=== PATIENT | female | born 1960 | race Caucasian/White ===

== ENCOUNTER 2017-09-23 10:11 | Emergency (ER) | payer MEDICARE, OTHER ==
[2017-09-23] MEDS ORDERED: SODIUM CHLORIDE 0.9% 500 ML IV STA (10:35)
[2017-09-23] MEDS ORDERED: ONDANSETRON 4 MG/2 ML VIAL IVP STA (10:35)
[2017-09-23] MEDS ORDERED: SODIUM CHLORIDE 0.9% 1,000 ML IV STA (10:35)
[2017-09-23] MEDS ORDERED: DICYCLOMINE 10 MG/ML 2 ML AMP IM STA (10:36)
[2017-09-23 11:45] LABS: Basophils # (A) 0.1 k/uL (0-0.2); Basophils % (A) 1 %; Eosinophils # (A) 0.3 k/uL (0-0.7); Eosinophils % (A) 3 %; HCT 40.3 % (34.0-46.0); HGB 13.1 gm/dL (11.4-16.0); Lymphocytes # (A) 2.8 k/uL (1.0-4.8); Lymphocytes % (A) 35 %; MCH 27.6 pg (25.0-35.0); MCHC 32.4 g/dL (31.0-37.0); Mean Platelet Volume 7.9; Monocytes # (A) 0.5 k/uL (0-1.0); Monocytes % (A) 6 %; Neutrophils # (A) 4.3 k/uL (1.3-7.7); Neutrophils % (A) 53 %; Platelet Count 334 k/uL (150-450); RBC 4.75 m/uL (3.80-5.40); RDW 12.5 % (11.5-15.5); WBC 8.1 k/uL (3.8-10.6)
--- NOTE | 2017-09-23 11:56 | ED ---
General Adult HPI - General Chief complaint: Nausea/Vomiting/Diarrhea Stated complaint: hyperglycemia Time Seen by Provider: 09/23/17 10:30 Source: patient, RN notes reviewed, old records reviewed Mode of arrival: ambulatory Limitations: no limitations - History of Present Illness Initial comments: This is a 57-year-old female the ER for evaluation. Patient resents today for evaluation of persistent nausea vomiting. Abdominal pain occasionally. Patient has history of diabetes, she is type II diabetic on oral medication. To examine persistent for a couple weeks now sugars have been running high in the 500s. Patient states she does not feel well she feels weak, no diarrhea no fevers. No travel history or sick contacts - Related Data Home Medications Medication Instructions Recorded Confirmed Aspirin [Adult Low Dose Aspirin EC] 81 mg PO DAILY 08/26/15 09/23/17 Hydrocodone/Acetaminophen 1 tab PO QID PRN 08/26/15 09/23/17 [Hydrocodone-Acetamin 10-325 mg] Lisinopril [Prinivil] 10 mg PO QAM 08/26/15 09/23/17 glipiZIDE [Glucotrol] 10 mg PO BID 08/26/15 09/23/17 metFORMIN HCL 1,000 mg PO BID 08/26/15 09/23/17 Atorvastatin Calcium [Lipitor] 20 mg PO HS 09/23/17 09/23/17 Levothyroxine Sodium [Synthroid] 175 mcg PO DAILY 09/23/17 09/23/17 Previous Rx's Medication Instructions Recorded Clopidogrel [Plavix] 75 mg PO DAILY #90 tab 08/31/15 Dicyclomine [Bentyl] 20 mg PO QID #40 tablet 09/23/17 Ondansetron Odt [Zofran ODT] 4 mg PO Q8HR PRN #30 tab 09/23/17 Allergies Allergy/AdvReac Type Severity Reaction Status Date / Time latex Allergy Rash/Hives Verified 09/23/17 11:06 Review of Systems ROS Statement: Those systems with pertinent positive or pertinent negative responses have been documented in the HPI. ROS Other: All systems not noted in ROS Statement are negative. Past Medical History Past Medical History: Asthma, COPD, Diabetes Mellitus, Fibromyalgia, GERD/Reflux , Hyperlipidemia, Thyroid Disorder Additional Past Medical History / Comment(s): Restless leg syndrome History of Any Multi-Drug Resistant Organisms: None Reported Past Surgical History: Heart Catheterization With Stent, Tubal Ligation Additional Past Surgical History / Comment(s): THYROIDECTOMY, CTR-RT WRIST, Cataract surgery R eye. Past Anesthesia/Blood Transfusion Reactions: Postoperative Nausea & Vomiting ( PONV) Date of Last Stent Placement:: 08/26/15 Past Psychological History: Anxiety Smoking Status: Former smoker Past Alcohol Use History: Rare Past Drug Use History: Marijuana - Past Family History Son(s) Family Medical History: Diabetes Mellitus, Renal Disease Additional Family Medical History / Comment(s): BLINDNESS FROM DIABETES. Mother Family Medical History: Diabetes Mellitus Father Family Medical History: Diabetes Mellitus, Deep Vein Thrombosis (DVT) General Exam Limitations: no limitations General appearance: alert, in no apparent distress Head exam: Present: atraumatic, normocephalic, normal inspection Eye exam: Present: normal appearance, PERRL, EOMI. Absent: scleral icterus, conjunctival injection, periorbital swelling ENT exam: Present: normal exam, mucous membranes moist Neck exam: Present: normal inspection. Absent: tenderness, meningismus, lymphadenopathy Respiratory exam: Present: normal lung sounds bilaterally. Absent: respiratory distress, wheezes, rales, rhonchi, stridor Cardiovascular Exam: Present: regular rate, normal rhythm, normal heart sounds. Absent: systolic murmur, diastolic murmur, rubs, gallop, clicks GI/Abdominal exam: Present: soft, normal bowel sounds. Absent: distended, tenderness, guarding, rebound, rigid Extremities exam: Present: normal inspection, full ROM, normal capillary refill. Absent: tenderness, pedal edema, joint swelling, calf tenderness Back exam: Present: normal inspection Neurological exam: Present: alert, oriented X3, CN II-XII intact Psychiatric exam: Present: normal affect, normal mood Skin exam: Present: warm, dry, intact, normal color. Absent: rash Course Vital Signs 09/23/17 09/23/17 10:13 12:38 Temperature 97.4 F L Pulse Rate 97 80 Respiratory 18 18 Rate Blood Pressure 198/82 145/69 O2 Sat by Pulse 96 97 Oximetry - Reevaluation(s) Reevaluation #1: 09/23/17 11:56 Mild improvement in symptoms, no active nausea or vomiting Reevaluation #2: 09/23/17 12:58 I need to follow up for tighter insulin treatment with family Medical Decision Making - Medical Decision Making 57 female the ER for evaluation. Patient does say for evaluation regards to abdominal pain consistent nausea vomiting elevated blood sugars. Patient's uncontrolled diabetes. CT labwork is normal, blood sugar is improved. The patient given hydration here we'll discharge with nausea medication and Bentyl - Lab Data Result diagrams: 09/23/17 11:23 09/23/17 11:23 Lab Results 09/23/17 09/23/17 09/23/17 Range/Units 11:23 11:23 11:23 WBC 8.1 (3.8-10.6) k/uL RBC 4.75 (3.80-5.40) m/uL Hgb 13.1 (11.4-16.0) gm/dL Hct 40.3 (34.0-46.0) % MCV 85.0 (80.0-100.0) fL MCH 27.6 (25.0-35.0) pg MCHC 32.4 (31.0-37.0) g/dL RDW 12.5 (11.5-15.5) % Plt Count 334 (150-450) k/uL Neutrophils % 53 % Lymphocytes % 35 % Monocytes % 6 % Eosinophils % 3 % Basophils % 1 % Neutrophils # 4.3 (1.3-7.7) k/uL Lymphocytes # 2.8 (1.0-4.8) k/uL Monocytes # 0.5 (0-1.0) k/uL Eosinophils # 0.3 (0-0.7) k/uL Basophils # 0.1 (0-0.2) k/uL Sodium 138 (137-145) mmol/L Potassium 4.9 (3.5-5.1) mmol/L Chloride 101 (98-107) mmol/L Carbon Dioxide 26 (22-30) mmol/L Anion Gap 11 mmol/L BUN 23 H (7-17) mg/dL Creatinine 0.50 L (0.52-1.04) mg/dL Est GFR (CKD-EPI)AfAm >90 (>60 ml/min/1.73 sqM) Est GFR (CKD-EPI)NonAf >90 (>60 ml/min/1.73 sqM) Glucose 373 H (74-99) mg/dL Calcium 10.0 (8.4-10.2) mg/dL Phosphorus 4.4 (2.5-4.5) mg/dL Magnesium 1.7 (1.6-2.3) mg/dL Total Bilirubin 0.2 (0.2-1.3) mg/dL AST 15 (14-36) U/L ALT 26 (9-52) U/L Alkaline Phosphatase 117 (38-126) U/L Total Creatine Kinase 36 (30-135) U/L CK-MB (CK-2) 0.6 (0.0-2.4) ng/mL CK-MB (CK-2) Rel Index 1.7 Troponin I <0.012 (0.000-0.034) ng/mL Total Protein 6.8 (6.3-8.2) g/dL Albumin 3.8 (3.5-5.0) g/dL Acetone, Qual Negative (Negative) - Radiology Data Radiology results: report reviewed (CT of pelvis negative for acute disease), image reviewed Disposition Clinical Impression: Gastroenteritis, Nausea & vomiting, Hyperglycemia Disposition: HOME SELF-CARE Condition: Fair Instructions: Acute Nausea and Vomiting (ED) Prescriptions: Dicyclomine [Bentyl] 20 mg PO QID #40 tablet Ondansetron Odt [Zofran ODT] 4 mg PO Q8HR PRN #30 tab PRN Reason: nausea/vomiting Is patient prescribed a controlled substance at d/c from ED?: No Referrals: Lilli Cabrales MD [Primary Care Provider] - 1-2 days
--- NOTE | 2017-09-23 12:01 | XR ---
EXAMINATION TYPE: XR abdomen acute w cxr DATE OF EXAM: 09/23/2017 COMPARISON: NONE HISTORY: Nausea and vomiting with history of COPD. TECHNIQUE: Single view chest radiograph, upright abdominal radiograph, and supine abdominal radiogra phs were performed. FINDINGS: Chest: No focal consolidation, pleural effusion or pneumothorax is seen. Cardiomediastinal silhouette is within normal limits. Osseous structures are intact. ABDOMEN: The bowel is nondilated. No suspicious abnormal calcifications are seen within the abdomen o r pelvis. Minimal degenerative changes are noted of the lumbosacral junction. Sclerotic elongated reg ion of the right superior pubic ramus with expansion is noted. Atherosclerosis is seen of the femoral arteries, mild in degree. IMPRESSION: 1. No acute intra-abdominal or cardiopulmonary process. Nonobstructed bowel gas pattern. 2. Expansile sclerotic region within the right superior pubic ramus. Consideration is for Paget's dis ease, prior bone infarct, or less likely neoplasm. Nuclear medicine bone scan could be performed to e valuate for focal uptake. MRI could also be considered for further characterization.
[2017-09-23 12:02] LABS: ALT 26 U/L (9-52); AST 15 U/L (14-36); Albumin 3.8 g/dL (3.5-5.0); Alkaline Phosphatase 117 U/L (38-126); Anion Gap 11 mmol/L; Blood Urea Nitrogen 23 mg/dL (7-17); Carbon Dioxide 26 mmol/L (22-30); Chloride 101 mmol/L (98-107); Glucose 373 mg/dL (74-99); Magnesium 1.7 mg/dL (1.6-2.3); Phosphorus 4.4 mg/dL (2.5-4.5); Potassium 4.9 mmol/L (3.5-5.1); Sodium 138 mmol/L (137-145); Total Bilirubin 0.2 mg/dL (0.2-1.3); Total Protein 6.8 g/dL (6.3-8.2)
[2017-09-23 12:07] LABS: Creatine Kinase 36 U/L (30-135)
[2017-09-23 12:19] LABS: Creatine Kinase MB 0.6 ng/mL (0.0-2.4); Troponin I <0.012 ng/mL (0.000-0.034)
[2017-09-23] MEDS ORDERED: INSULIN REGULAR 100 UNIT/ML VIAL IV ONE (12:56)
[2017-09-23 13:02] LABS: Appearance,Urine Clear (Clear); Bilirubin,Urine Negative (Negative); Blood,Urine Negative (Negative); Color,Urine Light Yellow; Glucose,Urine (UA) 4+ (Negative); Ketones,Urine Negative (Negative); Leukocyte Esterase,Urine Negative (Negative); Nitrite,Urine Negative (Negative); Protein,Urine Negative (Negative); Specific Gravity,Urine 1.025 (1.001-1.035); Urobilinogen,Urine <2.0 mg/dL (<2.0)
[2017-09-23 15:50] VITALS: BP 163/69; PULSE 81; RESP 20; TEMP 98
[2017-09-23 22:29] LABS: Hemoglobin A1C 12.8 % (4.0-6.0)
== END 2017-09-23 13:45 | disposition home or self-care (01) ==
LOC: EC 10:11
DX: K52.9 Noninfective gastroenteritis and colitis, unspecified (principal); K21.9 Gastro-esophageal reflux disease without esophagitis; E78.5 Hyperlipidemia, unspecified; E11.65 Type 2 diabetes mellitus with hyperglycemia; E07.9 Disorder of thyroid, unspecified; Z53.29 Procedure and treatment not carried out because of patient's decision for other reasons; Z87.891 Personal history of nicotine dependence; Z79.82 Long term (current) use of aspirin; Z79.84 Long term (current) use of oral hypoglycemic drugs; Z79.899 Other long term (current) drug therapy; Z91.040 Latex allergy status
CPT/HCPCS: 36415; 80053; 82550; 82553; 82009; 83735; 84100; 84484; 85025; 81003; 87086; 83036; 74022; 99284; 96374; 96361 ×2; 96372; J0500; J2405

== ENCOUNTER → 2018-10-03 | Outpatient (CLI) | payer MEDICARE ==
--- NOTE | 2018-10-03 23:20 | MR ---
EXAMINATION TYPE: MR pelvis wo con DATE OF EXAM: 10/03/2018 COMPARISON: Acute abdominal series with chest x-ray September 23, 2017 HISTORY: RIGHT HIP LESION, recent abnormal x-ray. Standard multiplanar, multisequence MRI departmental protocol Multiplanar, multisequence images of the pelvis focusing on right hip were acquired. FINDINGS: Corresponding to x-ray there is abnormal expansion of the right superior pelvic ramus versu s left side with serpiginous low T1 signal corresponding to irregular sclerotic lesion favoring focal bone infarct. Paget's disease felt less likely but should be correlated clinically and with alpha ph osphatase levels. Inferior pelvic rami are symmetric and maintained. Hip joints show mild to moderate axial joint space loss bilaterally. No additional areas of suspicious edema in the pelvis or either hip are identified. There is a anteverted uterus projecting to the right of midline with a few small scattered fibroids. There is no suspicious bowel dilatation. Bladder is felt within normal limits. No concerning pelvic f luid collection is noted. 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
== END | disposition home or self-care (01) ==
LOC: RADMRIMAIN 16:43
PROVIDERS: ATTEND Family Medicine
DX: M25.851 Other specified joint disorders, right hip (principal)
CPT/HCPCS: 72195

== ENCOUNTER → 2018-10-10 | Outpatient (CLI) | payer MEDICARE ==
--- NOTE | 2018-10-15 13:53 | P.ARTDOP ---
Arterial Doppler LOWER EXTREMITY ARTERIAL DOPPLER: DATE OF SERVICE: 10/10/2018 Reason for study: Claudication. Doppler waveforms: Multiphasic bilaterally throughout. Pulse volume recording: Diminished waveforms distally. Pressure gradients: Below the knee bilaterally. Ankle-brachial indices: 0.78 on the right and 0.96 on the left. Toe pressures: 90 on the right, 124 on the left Impression: Normal left side and mild distal disease on the right..
== END ==
LOC: RADUSWWP 14:11
PROVIDERS: ATTEND Family Medicine
DX: I77.89 Other specified disorders of arteries and arterioles (principal); I73.9 Peripheral vascular disease, unspecified
CPT/HCPCS: 93923

== ENCOUNTER → 2020-07-27 | Outpatient (CLI) | payer MEDICARE, OTHER ==
[2020-07-27 14:45] LABS: HCT 37.2 % (34.0-46.0); HGB 11.1 gm/dL (11.4-16.0); Hypochromasia Marked; MCH 24.4 pg (25.0-35.0); MCHC 29.8 g/dL (31.0-37.0); MCV 81.6 fL (80.0-100.0); Mean Platelet Volume 8.3; Platelet Count 326 k/uL (150-450); RBC 4.56 m/uL (3.80-5.40); RDW 14.4 % (11.5-15.5); WBC 10.2 k/uL (3.8-10.6)
[2020-07-27 14:57] LABS: African American GFR (CKD) >90 (>60 ml/min/1.73 sqM); Anion Gap 7 mmol/L; Blood Urea Nitrogen 34 mg/dL (7-17); Carbon Dioxide 31 mmol/L (22-30); Chloride 100 mmol/L (98-107); Non-African American GFR(CKD) >90 (>60 ml/min/1.73 sqM); Sodium 138 mmol/L (137-145)
[2020-07-27 15:11] LABS: Potassium 4.9 mmol/L (3.5-5.1)
== END | disposition home or self-care (01) ==
LOC: LABPAT 12:58
PROVIDERS: ATTEND Internal Medicine Cardiovascular Disease
DX: Z01.812 Encounter for preprocedural laboratory examination (principal); I48.0 Paroxysmal atrial fibrillation
CPT/HCPCS: 36415; 80051; 82565; 84520; 85027

== ENCOUNTER 2020-07-29 08:15 | Observation (INO) | payer MEDICARE, OTHER ==
[2020-07-28 09:58] VITALS: BMI 30.9
[2020-07-29] MEDS: SODIUM CHLORIDE 0.9% 1,000 ML IV SCH ×2 (05:58→12:56)
[~2020-07-29 08:15] MED LIST: ceFAZolin 1 GM in SODIUM CHLORIDE 0.9% 250 ML IRRIGATION PRN
[2020-07-29] MEDS ORDERED: SODIUM CHLORIDE 0.9% 1,000 ML IV ONE (08:48)
[2020-07-29 08:53] LABS: Glucose,Whole Blood 420 mg/dL (75-99)
[2020-07-29] MEDS ORDERED: INSULIN ASPART (NovoLOG) 100 UNIT/ML VIAL SQ ONE (08:58)
[2020-07-29] MEDS ORDERED: ONDANSETRON 4 MG/2 ML VIAL IVP STA (08:58)
[2020-07-29] MEDS ORDERED: amLODIPine 5 MG TAB PO STA (08:58)
[2020-07-29 09:00] LABS: Basophils # (A) 0.1 k/uL (0-0.2); Basophils % (A) 1 %; Eosinophils # (A) 0.4 k/uL (0-0.7); Eosinophils % (A) 4 %; HCT 37.4 % (34.0-46.0); HGB 11.5 gm/dL (11.4-16.0); Hypochromasia Moderate; Lymphocytes # (A) 2.1 k/uL (1.0-4.8); Lymphocytes % (A) 22 %; MCH 25.1 pg (25.0-35.0); MCHC 30.9 g/dL (31.0-37.0); MCV 81.4 fL (80.0-100.0); Mean Platelet Volume 8.7; Monocytes # (A) 0.6 k/uL (0-1.0); Monocytes % (A) 7 %; Neutrophils # (A) 6.1 k/uL (1.3-7.7); Neutrophils % (A) 65 %; Platelet Count 345 k/uL (150-450); RBC 4.59 m/uL (3.80-5.40); RDW 14.7 % (11.5-15.5); WBC 9.5 k/uL (3.8-10.6)
[2020-07-29] MEDS ORDERED: amLODIPine 5 MG TAB ONE (09:00)
[2020-07-29] MEDS ORDERED: ONDANSETRON 4 MG/2 ML VIAL ONE (09:02)
[2020-07-29 09:18] LABS: African American GFR (CKD) >90 (>60 ml/min/1.73 sqM); Anion Gap 6 mmol/L; Blood Urea Nitrogen 27 mg/dL (7-17); Calcium 9.4 mg/dL (8.4-10.2); Carbon Dioxide 32 mmol/L (22-30); Chloride 97 mmol/L (98-107); Glucose 434 mg/dL (74-99); Non-African American GFR(CKD) 87 (>60 ml/min/1.73 sqM); Potassium 4.6 mmol/L (3.5-5.1); Sodium 135 mmol/L (137-145)
[2020-07-29] MEDS ORDERED: IOPAMIDOL-250 50ML BTL IV ONE (09:36)
[2020-07-29] MEDS ORDERED: LIDOCAINE 1% INJ 10MG/ML (20 ML MDV) ONE (09:42)
[2020-07-29] MEDS ORDERED: fentaNYL (PF) 50 MCG/ML 2 ML AMP ONE (09:45)
[2020-07-29] MEDS ORDERED: MIDAZOLAM 2 MG/2 ML VIAL IVP ONE ×2 (09:54→10:13)
[2020-07-29] MEDS ORDERED: fentaNYL (PF) 50 MCG/ML 2 ML AMP IVP ONE ×2 (09:54→10:13)
[2020-07-29] MEDS ORDERED: LIDOCAINE 1% INJ 10MG/ML (20 ML MDV) SQ ONE (10:04)
--- NOTE | 2020-07-29 11:12 | P.PCN ---
Date of Procedure: 07/29/20 Preoperative Diagnosis: sick sinus syndrome with paroxysmal atrial fibrillation and long pauses associated with dizziness Postoperative Diagnosis: The same Procedure(s) Performed: Axillary venography under dual-chamber permanent pacemaker implantation Description of Procedure: HISTORY: This is a 60-year-old female with history of hypertension, diabetes and paroxysmal atrial fibrillation, who was referred for permanent pacemaker implantation because of sick sinus syndrome with long pauses associated with dizziness. CONSENT:I have discussed the risks, benefits and alternative therapies for the above-mentioned procedure and for both sedation/analgesia as well as necessary blood product administration, if indicated, as they pertain to this patient. The patient has indicated understanding and acceptance of the risks and procedures discussed. PROCEDURE: Patient was brought to the lab in a fasting state. Patient was prepped and draped in the usual fashion. Patient was given IV sedation with fentanyl and Versed. The skin below the left clavicle was infiltrated with lidocaine. An incision was made parallel to deltopectoral groove was deepened until the pectoral fascia was exposed. A pocket was created by blunt dissection and cautery. Axillary venography was performed to delineate the course of the axillary vein. 2 sticks were performed into extrathoracic portion of the axillary vein and 2 sheaths were advanced over the guidewires and left in subclavian vein. Conscious Sedation: Versed 1.5mg Fentanyl 75 g Duration 55minutes LEADS: ATRIAL: This is manufactured by [employer]. Model number is 5076-52. Serial number [id number] VENTRICULAR: This is manufactured by [employer]. Model number is 5076-58. [id number] THE DEVICE: This is manufactured by [employer]. Model number is [id number] and the serial number is [id number] The ventricular lead is maneuvered l with help of a straight and curved stylets into the left ventricle apical region. Satisfactory position was obtained and threshold measurements were made. The atrial lead was then maneuvered into the right atrial appendage. And thresholds were obtained. THRESHOLDS: ATRIUM: The minimum pacing threshold was 1.25 V at pulse width of 0.4 with impedance of 589. P-wave: 2.8 VENTRICLE: The minimum pcing threshold is 0.5 at pulse width of 0.4. The impedance is 703 R-wave:. 5.5 The leads and pulse generator remained in the pocket after it was washed with antibiotics. Pocket was closed in the usual fashion. The fascia was closed with 2-0 Prolene ,the subcutaneous tissue was closed with 3-0 Prolene and the skin was closed with 4-0 Prolene. PROGRAMMING: MODE: AAIR with mode switch to DDDR RATE: 60 to 130 OUTPUT: Atrium : 3.5 V Ventricle: 3.5 V. FINAL IMPRESSION: #1. Axillary venography #2. Successful implantation of dual- chamber pacemaker COMPLICATIONS: none PLAN:Patient will be monitored on telemetry unit. Prophylactic antibiotics to be continued. Chest x-ray in the morning. Possible discharge within 24 hours
[2020-07-29 11:46] LABS: Glucose,Whole Blood 313 mg/dL (75-99)
[2020-07-29] MEDS: INSULIN ASPART (NovoLOG) 100 UNIT/ML VIAL SQ SCH ×3 (11:51→20:36)
[2020-07-29] MEDS: ACETAMINOPHEN TAB 325 MG TAB PO PRN (15:50)
[2020-07-29 17:18] LABS: Glucose,Whole Blood 58 mg/dL (75-99)
[2020-07-29 17:26] LABS: Glucose,Whole Blood 60 mg/dL (75-99)
[2020-07-29] MEDS: HYDROcodone/APAP 5-325MG 1 EACH TAB PO PRN ×2 (19:10→23:10)
[2020-07-29 20:20] LABS: Glucose,Whole Blood 201 mg/dL (75-99)
[2020-07-29] MEDS: rOPINIRole HCL 4 MG TABLET PO SCH (23:00)
[2020-07-30] MEDS: SODIUM CHLORIDE 0.9% 1,000 ML IV SCH ×4 (03:55→22:12)
[2020-07-30 04:43] LABS: Glucose,Whole Blood 360 mg/dL (75-99)
[2020-07-30 07:41] LABS: Glucose,Whole Blood 371 mg/dL (75-99)
--- NOTE | 2020-07-30 08:00 | XR ---
EXAMINATION TYPE: XR chest 2V DATE OF EXAM: 07/30/2020 COMPARISON: Chest x-ray 09/23/2017 HISTORY: Lead placement TECHNIQUE: Frontal and lateral views of the chest are obtained. FINDINGS: Interval placement of a generator in the left pectoral region, there are leads in right at rium and ventricle. There is some patchy density in the left lung base. No evident pneumothorax or pl eural effusion. Cardiac mediastinal silhouette is stable. Aorta is dense. IMPRESSION: There may be lower lobe pneumonia, follow-up is recommended, no evident pneumothorax sta tus post chest tube placement
[2020-07-30] MEDS ORDERED: DILTIAZEM DRIP BOLUS FROM BAG 1 MG SOLN IV ONE (09:02)
[2020-07-30] MEDS ORDERED: DILTIAZEM 125 MG in SODIUM CHLORIDE 0.9% 100 ML IV SCH (09:15)
[2020-07-30] MEDS: INSULIN ASPART (NovoLOG) 100 UNIT/ML VIAL SQ SCH ×5 (09:25→21:59)
[2020-07-30] MEDS: ACETAMINOPHEN TAB 325 MG TAB PO PRN (09:36)
[2020-07-30] MEDS: HYDROcodone/APAP 5-325MG 1 EACH TAB PO PRN ×2 (09:43→20:40)
[2020-07-30] MEDS ORDERED: METOPROLOL SUCCINATE (ER) 50 MG TAB.ER.24H PO SCH (11:00)
[2020-07-30] MEDS: lisinopriL 10 MG TAB PO SCH (11:34)
[2020-07-30 12:28] LABS: Glucose,Whole Blood 378 mg/dL (75-99)
[2020-07-30] MEDS ORDERED: METOPROLOL SUCCINATE (ER) 25 MG TAB.ER.24H PO STA (13:03)
--- NOTE | 2020-07-30 15:48 | P.PN ---
<Dara Valerio Naheed - Last Filed: 07/30/20 15:51> Subjective Progress Note Date: 07/30/20 HISTORY OF PRESENT ILLNESS: 60-year-old female who underwent dual-chamber pacemaker implantation secondary to sick sinus syndrome with Dr. Arnold. POD #1. Patient went into A. fib with RVR overnight. She was started on a Cardizem drip. This is currently infusing at 10 mg an hour. Patient reports mild discomfort at pacemaker insertion site. She denies shortness of breath. Patient does report an episode of chest discomfort this morning that was relieved with IV medication. Troponin was obtained and was negative. At the time of examination, she denies any chest pain or pressure. PHYSICAL EXAM: VITAL SIGNS: Reviewed. GENERAL: Well-developed in no acute distress. NECK: Supple. No JVD or thyromegaly LUNGS: Respirations even and unlabored. Lungs essentially clear to auscultation bilaterally. HEART: Irregular rate and rhythm. S1 and S2 heard. Dressing to left chest cl hardik dry and intact. EXTREMITIES: Normal range of motion. No clubbing or cyanosis. Peripheral pulse s intact. No lower extremity edema ASSESSMENT: History of sick sinus syndrome with dizziness, status post dual-chamber pacemaker implantation Atrial fibrillation with RVR, on IV Cardizem History of paroxysmal atrial fibrillation on anticoagulation with Xarelto Hypertension Diabetes mellitus Hypothyroidism PLAN: Resume home cardiac medications Resume Xarelto Resume beta sho. Increase dose to 75 mg daily. Given additional 25 mg now Wean off Cardizem drip Obtain additional troponin level Further recommendations pending patient's course Possible discharge home tomorrow Will consult medicine for medical management Nurse practitioner note has been reviewed by physician. Signing provider agrees with the documented findings, assessment, and plan of care. Objective - Vital Signs Vital signs: Vital Signs Temp 98.2 F 07/30/20 07:10 Pulse 83 07/30/20 10:04 Resp 18 07/30/20 07:10 BP 142/70 07/30/20 10:04 Pulse Ox 95 07/30/20 07:10 Intake & Output 07/29/20 07/30/20 07/30/20 18:59 06:59 18:59 Intake Total 600 1350 Output Total 250 Balance 600 1100 Weight 81.647 kg Intake: IV 300 500 Sodium Chloride 0.9% 1, 500 000 ml @ 50 mls/hr IV . Q20H ANTONIA Rx#:[id number] Oral 300 850 Output: Emesis 250 Other: Voiding Method Toilet Toilet # Voids 1 1 # Bowel Movements 0 - Labs CBC & Chem 7: 07/29/20 08:50 07/29/20 08:50 Labs: Abnormal Lab Results - Last 24 Hours (Table) 07/29/20 07/29/20 07/29/20 Range/Units 17:04 17:24 20:18 POC Glucose (mg/dL) 58 L 60 L 201 H (75-99) mg/dL 07/30/20 07/30/20 07/30/20 Range/Units 04:42 07:37 12:26 POC Glucose (mg/dL) 360 H 371 H 378 H (75-99) mg/dL <Kerwin Vincent - Last Filed: 07/30/20 20:50> Objective - Vital Signs Vital signs: Vital Signs Temp 97.7 F 07/30/20 15:00 Pulse 55 L 07/30/20 15:00 Resp 20 07/30/20 15:00 BP 155/67 07/30/20 15:00 Pulse Ox 95 07/30/20 15:00 Intake & Output 07/30/20 07/30/20 07/31/20 06:59 18:59 06:59 Intake Total 1350 1320 Output Total 250 Balance 1100 1320 Intake: IV 500 Sodium Chloride 0.9% 1, 500 000 ml @ 50 mls/hr IV . Q20H ANTONIA Rx#:[id number] Oral 850 1320 Output: Emesis 250 Other: Voiding Method Toilet Toilet # Voids 1 # Bowel Movements 0 - Labs CBC & Chem 7: 07/29/20 08:50 07/29/20 08:50 Labs: Abnormal Lab Results - Last 24 Hours (Table) 07/30/20 07/30/20 07/30/20 Range/Units 04:42 07:37 12:26 POC Glucose (mg/dL) 360 H 371 H 378 H (75-99) mg/dL 07/30/20 Range/Units 17:40 POC Glucose (mg/dL) 301 H (75-99) mg/dL
[2020-07-30] MEDS: FUROSEMIDE 20 MG TAB PO SCH (16:50)
[2020-07-30] MEDS ORDERED: RIVAROXABAN 20 MG TAB PO SCH (17:30)
[2020-07-30 17:43] LABS: Glucose,Whole Blood 301 mg/dL (75-99)
[2020-07-30] MEDS ORDERED: ALPRAZolam 0.25 MG TAB PO PRN (19:04)
[2020-07-30] MEDS: NITROGLYCERIN SL TABS 0.4 MG TAB SUBLINGUAL PRN ×2 (20:12→20:26)
[2020-07-30] MEDS ORDERED: ATORVASTATIN 40 MG TAB PO SCH (21:00)
[2020-07-30] MEDS ORDERED: INSULIN DETEMIR (LEVEMIR) 100 UNIT/ML SYR SQ SCH (21:00)
[2020-07-30 21:19] LABS: Glucose,Whole Blood 473 mg/dL (75-99)
--- NOTE | 2020-07-30 21:26 | CONS ---
CONSULTATION REASON FOR CONSULTATION: Advice regarding diabetes and other medical illness requested by Cardiology. HISTORY OF PRESENT ILLNESS: This 60-year-old woman with a past medical history of multiple medical problems including asthma, COPD, diabetes, fibromyalgia, GERD, hypertension, hyperlipidemia, being followed by Dr. Lilli Cabrales in the outpatient setting, underwent dual-chamber permanent pacemaker implantation for sick sinus syndrome with paroxysmal atrial fibrillation long pauses as well as dizziness. The blood sugars were found to be elevated in the 300s today. There is no history of fever, rigors or chills. No history of headache, loss of consciousness, chest pain or palpation this time. At home, the patient's blood sugar has been fluctuating according to her. PAST MEDICAL HISTORY: Asthma, COPD, diabetes, fibromyalgia, GERD, hypertension, hyperlipidemia. MEDICATIONS: Home medications are reviewed and include: K-Dur 20 mEq p.o. daily. Protonix. Metoprolol 50 mg p.o. b.i.d., Lasix 20 mg daily, Levemir, NovoLog, Ultram, Requip, Glucotrol, Prinivil, Synthroid, hydrocodone, Livalo, Xarelto. ALLERGIES: LATEX. FAMILY HISTORY: History of diabetes mellitus, renal disease in the family. SOCIAL HISTORY: Previous history of smoking. No history of alcohol intake. REVIEW OF SYSTEMS: ENT: No diminished hearing. No diminished vision. CARDIOVASCULAR system: As mentioned earlier. RESPIRATIONS as mentioned earlier. GI no nausea or vomiting. no dysuria. NERVOUS SYSTEM: No numbness or weakness. ALLERGY/IMMUNOLOGY: No asthma or hayfever. MUSCULOSKELETAL: As mentioned earlier. HEMATOLOGY/ONCOLOGY: No history of anemia. ENDOCRINE: Diabetes. CONSTITUTIONAL: As mentioned earlier. DERMATOLOGY: Negative. RHEUMATOLOGY negative. PSYCHIATRY as mentioned earlier. PHYSICAL EXAM: Patient is alert, oriented x3. Pulse is 55, blood pressure 150/60, respiration 20, temperature 97.7, pulse ox 95 percent on room air. HEENT: Conjunctivae normal. Oral mucosa moist. NECK is no jugular venous distention. No carotid bruit. No lymph node enlargement. Cardiovascular system: S1, S2 muffled. RESPIRATORY: Breath sounds diminished in the bases. No rhonchi. No crackles. ABDOMEN: Soft, nontender. No mass palpable. LEGS: No edema. No swelling. NERVOUS SYSTEM: Higher functions as mentioned earlier. Moves all 4 limbs. No focal motor or sensory deficits. LYMPHATICS: No lymph nodes palpable in the neck, axilla or groin. SKIN: No ulcer, rash or bleeding. JOINTS: No active deforming arthropathy. LABS: Glucose 378, 301. ASSESSMENT: 1. Status post dual chamber pacemaker implantation for sick sinus syndrome, paroxysmal atrial fibrillation, long pauses as well as dizziness. 2. Diabetes mellitus type 2, uncontrolled with hyperglycemia. 3. History of asthma, chronic obstructive pulmonary disease. 4. Fibromyalgia. 5. Gastroesophageal reflux disease. 6. Hyperlipidemia. 7. Hypothyroidism. 8. History of restless legs syndrome. 9. History of coronary artery disease/stent. 10.History of anxiety. 11.Remote history of nicotine dependence. RECOMMENDATIONS AND DISCUSSION: This 60-year-old woman who presented with multiple complex medical issues, we will monitor the patient closely. Continue the current medications, management and symptomatic treatment. Otherwise, at this time, I recommend institute Levemir and also I would also recommend NovoLog plus 3 units plus with meals and plus scale also. Hold if the Accu-Cheks less than 100. Otherwise, we will follow the patient closely. The patient may be asked to follow up with Dr. Lilli Cabrales closely after discharge. Thank you Dr. Arnold for letting us participate in the care of this patient. MMODL / IJN: [id number] /
[2020-07-30] MEDS: rOPINIRole HCL 4 MG TABLET PO SCH (21:57)
[2020-07-30] MEDS: glipiZIDE 10 MG TAB PO SCH (21:59)
[2020-07-30 23:26] LABS: Glucose,Whole Blood 436 mg/dL (75-99)
[2020-07-30] MEDS ORDERED: NON FORMULARY DRUG (Vitamin C/Biotin [Hair, Skin And Nails] 1 EACH Tab.Chew) PO SCH (23:42)
[2020-07-30] MEDS ORDERED: traMADol 50 MG TAB PO PRN (23:42)
[2020-07-30] MEDS ORDERED: INSULIN ASPART (NovoLOG) 100 UNIT/ML VIAL SQ SCH (23:42)
[2020-07-30] MEDS ORDERED: glipiZIDE 10 MG TAB PO SCH (23:42)
[2020-07-30] MEDS ORDERED: lisinopriL 10 MG TAB PO SCH (23:42)
[2020-07-30] MEDS ORDERED: NITROGLYCERIN SL TABS 0.4 MG TAB SUBLINGUAL PRN (23:42)
[2020-07-30] MEDS ORDERED: FUROSEMIDE 20 MG TAB PO SCH (23:42)
[2020-07-30] MEDS ORDERED: ATORVASTATIN 20 MG TAB PO SCH (23:42)
[2020-07-30] MEDS ORDERED: rOPINIRole HCL 4 MG TABLET PO SCH (23:42)
[2020-07-30] MEDS: METOPROLOL SUCCINATE (ER) 50 MG TAB.ER.24H PO SCH (23:53)
[2020-07-30] MEDS: POTASSIUM CHLORIDE ER 20 MEQ TAB.ER PO SCH (23:53)
[2020-07-30] MEDS: PANTOPRAZOLE SODIUM 40 MG GRANULE PKT PO SCH (23:53)
[2020-07-31] MEDS: INSULIN ASPART (NovoLOG) 100 UNIT/ML VIAL SQ SCH ×5 (00:02→12:34)
[2020-07-31] MEDS: ALBUTEROL NEBULIZED 2.5 MG/3 ML INHALATION SCH ×3 (00:25→10:51)
[2020-07-31 05:11] LABS: Glucose,Whole Blood 222 mg/dL (75-99)
[2020-07-31] MEDS: glipiZIDE 10 MG TAB PO SCH (06:26)
[2020-07-31] MEDS ORDERED: LEVOTHYROXINE 75 MCG TAB PO SCH (06:30)
[2020-07-31 07:23] LABS: Glucose,Whole Blood 207 mg/dL (75-99)
[2020-07-31] MEDS ORDERED: INSULIN ASPART (NovoLOG) 100 UNIT/ML VIAL SQ SCH (07:30)
[2020-07-31] MEDS ORDERED: ASPIRIN 81 MG PO SCH (09:00)
[2020-07-31] MEDS ORDERED: METOPROLOL SUCCINATE (ER) 25 MG TAB.ER.24H PO SCH (09:00)
[2020-07-31] MEDS: FUROSEMIDE 20 MG TAB PO SCH (09:26)
[2020-07-31] MEDS: PANTOPRAZOLE SODIUM 40 MG GRANULE PKT PO SCH (09:27)
[2020-07-31] MEDS: POTASSIUM CHLORIDE ER 20 MEQ TAB.ER PO SCH (09:27)
[2020-07-31] MEDS: lisinopriL 10 MG TAB PO SCH (09:27)
[2020-07-31] MEDS: METOPROLOL SUCCINATE (ER) 50 MG TAB.ER.24H PO SCH (09:27)
[2020-07-31] MEDS: HYDROcodone/APAP 5-325MG 1 EACH TAB PO PRN (09:36)
[2020-07-31 12:15] LABS: Glucose,Whole Blood 276 mg/dL (75-99)
[2020-07-31 12:58] VITALS: RESP 16
--- NOTE | 2020-07-31 14:59 | P.DS ---
Providers Date of admission: 07/30/20 12:33 Expected date of discharge: 07/31/20 Attending physician: Harry Arnold Consults: 07/30/20 16:20 Consult Physician Routine Consulting Provider: Mariaelena Haas Consult Reason/Comments: medical management Do you want consulting provider notified?: Yes Primary care physician: Lilli Martinez [facility] Course: This is a 60-year-old female who underwent dual-chamber pacemaker implantation secondary to sick sinus syndrome with Dr. Arnold on 07/29/2020. Patient was admitted overnight for observation. Patient went into A. fib with RVR overnight. She was placed on IV Cardizem. Patient was resumed on her metoprolol and the dose was increased to 75 mg daily. Her Cardizem drip was weaned off. Her heart rate has since been controlled. Patient did have an episode of chest discomfort during hospitalization. Troponins were checked and were negative. No further episodes of chest pain. The patient was deemed stable for discharge home today. She is to follow up on an outpatient basis. Please see EMR for further hospital course details. Discharge Diagnosis: History of sick sinus syndrome with dizziness, status post dual-chamber pacemaker implantation Atrial fibrillation with RVR, rate currently controlled History of paroxysmal atrial fibrillation on anticoagulation with Xarelto Hypertension Diabetes mellitus Hypothyroidism Isolated episode of chest pain, troponins negative, resolved Nurse practitioner note has been reviewed by physician. Signing provider agrees with the documented findings, assessment, and plan of care. Plan - Discharge Summary Discharge Rx Participant: No New Discharge Prescriptions: New Metoprolol Succinate (ER) [Toprol XL] 75 mg PO DAILY #90 tab Cephalexin [Keflex] 500 mg PO Q8HR #9 cap Continue glipiZIDE [Glucotrol] 10 mg PO BID Hydrocodone/Acetaminophen [Hydrocodone-Acetamin 10-325 mg] 1 tab PO Q8H PRN PRN Reason: Pain Lisinopril [Prinivil] 10 mg PO QAM Aspirin [Adult Low Dose Aspirin EC] 81 mg PO DAILY Levothyroxine Sodium [Synthroid] 150 mcg PO DAILY traMADol HCL [Ultram] 50 mg PO Q6H PRN PRN Reason: Pain rOPINIRole HCL [Requip] 8 mg PO HS Vitamin C/Biotin [Hair, Skin and Nails] 1 tab PO DAILY Albuterol Nebulized [Ventolin Nebulized] 2.5 mg INHALATION Q6H Insulin Aspart [NovoLOG] 0 units SQ TID-W/MEALS Pantoprazole Sodium 40 mg PO DAILY Insulin Detemir [Levemir Flextouch] 36 units SQ HS Rivaroxaban [Xarelto] 20 mg PO DAILY Furosemide [Lasix] 20 mg PO BID Potassium Chloride [Klor-Con 20] 20 meq PO DAILY Pitavastatin Calcium [Livalo] 4 mg PO HS Discontinued Metoprolol Succinate (ER) [Toprol Xl] 50 mg PO DAILY Discharge Medication List Aspirin [Adult Low Dose Aspirin EC] 81 mg PO DAILY 08/26/15 [History] Hydrocodone/Acetaminophen [Hydrocodone-Acetamin 10-325 mg] 1 tab PO Q8H PRN 08/26/15 [History] Lisinopril [Prinivil] 10 mg PO QAM 08/26/15 [History] glipiZIDE [Glucotrol] 10 mg PO BID 08/26/15 [History] Levothyroxine Sodium [Synthroid] 150 mcg PO DAILY 09/23/17 [History] rOPINIRole HCL [Requip] 8 mg PO HS 09/23/17 [History] traMADol HCL [Ultram] 50 mg PO Q6H PRN 09/23/17 [History] Albuterol Nebulized [Ventolin Nebulized] 2.5 mg INHALATION Q6H 07/28/20 [History] Furosemide [Lasix] 20 mg PO BID 07/28/20 [History] Insulin Aspart [NovoLOG] 0 units SQ TID-W/MEALS 07/28/20 [History] Insulin Detemir [Levemir Flextouch] 36 units SQ HS 07/28/20 [History] Pantoprazole Sodium 40 mg PO DAILY 07/28/20 [History] Pitavastatin Calcium [Livalo] 4 mg PO HS 07/28/20 [History] Potassium Chloride [Klor-Con 20] 20 meq PO DAILY 07/28/20 [History] Rivaroxaban [Xarelto] 20 mg PO DAILY 07/28/20 [History] Vitamin C/Biotin [Hair, Skin and Nails] 1 tab PO DAILY 07/28/20 [History] Cephalexin [Keflex] 500 mg PO Q8HR #9 cap 07/31/20 [Rx] Metoprolol Succinate (ER) [Toprol XL] 75 mg PO DAILY #90 tab 07/31/20 [Rx] Follow up Appointment(s)/Referral(s): Harry Arnold MD [STAFF PHYSICIAN] - 1 Week
[2020-07-31 16:40] VITALS: BP 131/64; PULSE 71; TEMP 98.1
--- NOTE | 2020-07-31 19:12 | PN ---
PROGRESS NOTE DATE OF SERVICE: 07/31/2020 This 60-year-old gentleman admitted after pacemaker implantation had elevated blood sugars. No chest pain. No palpitations. No fever. PHYSICAL EXAMINATION: Alert and oriented x3. Pulse 71. Blood pressure 130/64, respirations 16, temperature 98.1, pulse ox 99% on room air. HEENT: Conjunctivae normal. NECK: No JVD. CARDIOVASCULAR: S1, S2. RESPIRATORY SYSTEM: Breath sounds diminished at the bases. No rhonchi. No crackles. ABDOMEN: Soft. Nontender. NERVOUS SYSTEM: No focal deficits. LABS: Accu-Cheks 222, 207. ASSESSMENT: 1. Status post dual-chamber pacemaker implantation with sick sinus syndrome, paroxysmal atrial fibrillation, as long pauses as well as dizziness. 2. Diabetes mellitus type 2, uncontrolled with hyperglycemia. 3. History of asthma, chronic obstructive pulmonary disease. 4. Fibromyalgia. 5. Gastroesophageal reflux disease. 6. Hyperlipidemia. 7. Hypothyroidism. 8. History of restless legs syndrome. 9. History of coronary artery disease/stent. 10.History of anxiety. 11.Remote history of nicotine dependence. RECOMMENDATIONS AND DISCUSSION: Recommend to continue current medications, management and symptomatic treatment. Otherwise, at this time, I recommend resume the home dose of insulin coverage, which works well according to her and I would also recommend Accu-Cheks a.c. and at bedtime and keep a log and follow closely with primary physician Dr. Lilli Cabrales. The patient might require adjustment of the bolus insulin and also addition of the basal insulin as well. Dr. Lilli Cabrales will follow. Discussed with the patient who understands and agrees. The rest of the recommendations per Cardiology. MMODL / IJN: [id number] / MTDD
[2020-07-31] MEDS ORDERED: ATORVASTATIN 20 MG TAB PO SCH (21:00)
[2020-07-31] MEDS ORDERED: INSULIN DETEMIR (LEVEMIR) 100 UNIT/ML SYR SQ SCH ×2 (21:00)
== END 2020-07-31 16:39 | disposition home or self-care (01) ==
LOC: CATHEP 08:15 → 6NMEDSUR 10:55 → CATHEP 07-30 12:33 → 6NMEDSUR 07-30 12:33 → 3SCARD 07-30 22:39
PROVIDERS: ADMIT Internal Medicine Cardiovascular Disease; ATTEND Internal Medicine Cardiovascular Disease
DX: I49.5 Sick sinus syndrome (principal); I48.0 Paroxysmal atrial fibrillation; R42 Dizziness and giddiness; I10 Essential (primary) hypertension; Z79.01 Long term (current) use of anticoagulants; E03.9 Hypothyroidism, unspecified; E11.65 Type 2 diabetes mellitus with hyperglycemia; E78.5 Hyperlipidemia, unspecified; J44.9 Chronic obstructive pulmonary disease, unspecified; K21.9 Gastro-esophageal reflux disease without esophagitis; M79.7 Fibromyalgia; E78.2 Mixed hyperlipidemia; G25.81 Restless legs syndrome; R07.89 Other chest pain; I25.10 Atherosclerotic heart disease of native coronary artery without angina pectoris; I73.9 Peripheral vascular disease, unspecified; F41.9 Anxiety disorder, unspecified; Z87.891 Personal history of nicotine dependence; Z95.5 Presence of coronary angioplasty implant and graft; Z79.891 Long term (current) use of opiate analgesic; Z79.82 Long term (current) use of aspirin; Z79.890 Hormone replacement therapy; Z79.4 Long term (current) use of insulin; Z83.3 Family history of diabetes mellitus; Z84.1 Family history of disorders of kidney and ureter
CPT/HCPCS: 93005; 33208; 80048; 84484 ×2; 85025; 71046; G0378 ×3; C1769 ×2; C1892; C1898; C1785; J2250; J0690; J2405; J2001; J3010; Q9966

== ENCOUNTER → 2021-05-04 | Outpatient (CLI) | payer MEDICARE, OTHER ==
[2021-05-04 12:47] LABS: HCT 40.7 % (34.0-46.0); HGB 12.8 gm/dL (11.4-16.0); Hypochromasia Slight; MCH 28.5 pg (25.0-35.0); MCHC 31.5 g/dL (31.0-37.0); MCV 90.6 fL (80.0-100.0); Mean Platelet Volume 8.5; Platelet Count 336 k/uL (150-450); RBC 4.49 m/uL (3.80-5.40); RDW 13.7 % (11.5-15.5); WBC 10.8 k/uL (3.8-10.6)
[2021-05-04 13:09] LABS: Potassium 4.7 mmol/L (3.5-5.1)
== END | disposition home or self-care (01) ==
LOC: LABPAT 12:12
PROVIDERS: ATTEND Internal Medicine Clinical Cardiac Electrophysiology
DX: Z01.812 Encounter for preprocedural laboratory examination (principal); Z20.822 Contact with and (suspected) exposure to COVID-19
CPT/HCPCS: 80051; 82565; 84520; 85027; 36415; U0003; C9803; 84443

== ENCOUNTER → 2021-05-04 | Outpatient (CLI) | payer MEDICARE, OTHER | END | disposition home or self-care (01) | LOC: LABWHC1 12:15 | PROVIDERS: ATTEND Nurse Practitioner Adult Health | DX: E03.9 Hypothyroidism, unspecified (principal) | CPT/HCPCS: 36415; 84443 ==

== ENCOUNTER → 2021-05-26 | Outpatient (CLI) | payer MEDICARE, OTHER | END | disposition home or self-care (01) | LOC: LABPAT 10:07 | PROVIDERS: ATTEND Internal Medicine Clinical Cardiac Electrophysiology | DX: Z01.812 Encounter for preprocedural laboratory examination (principal); Z20.822 Contact with and (suspected) exposure to COVID-19; I48.0 Paroxysmal atrial fibrillation | CPT/HCPCS: U0003; C9803; U0005 ==

== ENCOUNTER 2021-05-29 08:51 | Day surgery (SDC) | payer MEDICARE, OTHER ==
[2021-05-04 10:14] VITALS: BMI 29.9
[~2021-05-29 08:51] MED LIST changes: +LACTATED RINGERS 1,000 ML IV SCH; -ceFAZolin 1 GM in SODIUM CHLORIDE 0.9% 250 ML IRRIGATION PRN
[2021-05-29] MEDS: SODIUM CHLORIDE 0.9% 1,000 ML IV SCH ×6 (09:15→14:42)
[2021-05-29 09:21] LABS: Glucose,Whole Blood 93 mg/dL (75-99)
[2021-05-29] MEDS ORDERED: LIDOCAINE 1% INJ 10MG/ML (20 ML MDV) ONE (10:08)
[2021-05-29] MEDS ORDERED: HEPARIN SOD,PORK IN 0.45% NACL 25,000 UNIT in 0.45% NACL 1 250ML.BAG IV ONE (10:42)
[2021-05-29] MEDS ORDERED: LIDOCAINE 1% INJ 10MG/ML (20 ML MDV) SQ ONE (10:58)
[2021-05-29] MEDS ORDERED: SODIUM CHLORIDE 0.9% 500 ML 500 ML IV ONE (12:16)
[2021-05-29] MEDS ORDERED: IOPAMIDOL-370 100ML BTL INJ ONE (12:17)
[2021-05-29] MEDS ORDERED: ALBUTEROL NEBULIZED 2.5 MG/3 ML INHALATION PRN (13:02)
--- NOTE | 2021-05-29 13:37 | P.HPCAR ---
History of Present Illness Patient interviewed and examined prior to the procedure This is Dr. Goyal dictating an H/P on this patient The patient was interviewed and examined IMPRESSION / ASSESSMENT: Symptomatic paroxysmal atrial fibrillation with RVR with shortness of breath and chest discomfort off and on Hypertension Type 2 diabetes Mild aortic stenosis Sick Sinus Syndrome status post Medtronic dual-chamber pacemaker implant PLAN: Proceed with pulmonary vein isolation for paroxysmal atrial fibrillation, symptomatic Patient is stable from a cardiac standpoint, no orthopnea PND no fever chills cough HPI Patient continues to experience episodes of chest discomfort off and on shortness of breath with documented fibrillation during those episodes Complains of tiredness and fatigue Denies any fever chills cough expectoration No GI symptoms ROS: No fever chills or rigors, no cough, phlegm or expectoration, no nausea, vomiting or diarrhea, no hematuria, dysuria, no musculoskeletal complaints, no strokes or seizures, no skin lesions. EXAMINATION: Afebrile 98.1F blood pressure 106 90 79 mmHg pulse rate in the 60s No orthopnea Breath sounds are reduced bilaterally but there are no rhonchi no crackles Ejection systolic murmur over the precordium consistent with aortic stenosis Soft abdomen nontender Femoral pulses were palpable bilaterally No lower extremity edema No JVD REVIEW OF LABS, ECG & MEDICAL DATA Glucose 93 Physical Exam Vitals: Vital Signs Temp Pulse Resp BP Pulse Ox 05/29/21 09:25 98.1 F 69 16 181/81 94 L Intake and Output 05/28/21 05/29/21 05/29/21 22:59 06:59 14:59 Intake Total 50 Balance 50 Intake: IV 50 Other: Weight 81.8 kg Past Medical History Past Medical History: Atrial Fibrillation, Asthma, COPD, Diabetes Mellitus, Fibromyalgia, GERD/Reflux, Hyperlipidemia, Hypertension, Thyroid Disorder Additional Past Medical History / Comment(s): Restless leg syndrome. SEE DR. GOYAL'S H & P FOR CARDIAC HX History of Any Multi-Drug Resistant Organisms: None Reported Past Surgical History: Heart Catheterization With Stent, Pacemaker, Tubal Ligation Additional Past Surgical History / Comment(s): THYROIDECTOMY, CTR-RT WRIST, Cataract surgery R/L eye., Past Anesthesia/Blood Transfusion Reactions: Postoperative Nausea & Vomiting (PONV) Date of Last Stent Placement:: 08/26/15 Type of Cardiac Device: Biventricular Pacemaker Device Placement Date:: 07/29/2020 Smoking Status: Former smoker - Past Family History Son(s) Family Medical History: Diabetes Mellitus, Renal Disease Additional Family Medical History / Comment(s): BLINDNESS FROM DIABETES. Mother Family Medical History: Diabetes Mellitus Father Family Medical History: Diabetes Mellitus, Deep Vein Thrombosis (DVT) Physical Examination Vital Signs Temp Pulse Resp BP Pulse Ox 05/29/21 09:25 98.1 F 69 16 181/81 94 L Intake and Output 05/28/21 05/29/21 05/29/21 22:59 06:59 14:59 Intake Total 50 Balance 50 Intake: IV 50 Other: Weight 81.8 kg Results Current Medications Generic Name Dose Route Start Last Admin Trade Name Freq PRN Reason Stop Dose Admin Sodium Chloride 1,000 mls @ 50 mls/hr 05/08/21 06:27 05/29/21 09:15 Saline 0.9% IV 06/07/21 06:28 0 mls .Q20H ANTONIA Administration Lactated Ringer's 1,000 mls @ 20 mls/hr 05/28/21 17:45 Lactated Ringers IV 06/27/21 17:46 .Q24H ANTONIA Intake and Output 05/28/21 05/29/21 05/29/21 22:59 06:59 14:59 Intake Total 50 Balance 50 Intake: IV 50 Other: Weight 81.8 kg Patient Weight 05/30/21 06:59 Weight 81.8 kg
--- NOTE | 2021-05-29 13:47 | P.EPPROC ---
- EP Procedure Note Electrophysiology Procedure Note: PROCEDURE A. fib ablation/EPS 4/cryoablation DIAGNOSIS Atrial fibrillation, symptomatic, refractory to therapy, paroxysmal RESULT No left atrial appendage mass seen on intracardiac echo Prominent pericardial stripe with trace pericardial effusion on intracardiac echo Successful A. fib ablation/pulmonary vein isolation of all veins using cryo- ablation Complete entrance block in all 4 veins confirmed No evidence for phrenic nerve injury Esophageal deflection YES, left-sided esophagus PROCEDURE DETAILS Patient was brought to the EP lab in a fasting state after obtaining written informed consent. Procedure performed under general anesthesia Esophagus was intubated. Esophageal temperature monitoring with circa catheter. Esophageal deflection with an endoscope to avoid hypothermia of the esophagus. After initial muscle relaxant use, muscle relaxants were not given thereafter in order to assess phrenic nerve during procedure. Patient prepped and draped as per protocol Cryo ablation-set up with standard preparation of the cryoablation tools done. Femoral Venous access obtained on the right and left groins and sheaths placed Diagnostic catheters for the high right atrium, phrenic nerve stimulation and pacing, His bundle, coronary sinus placed Intracardiac echo catheter placed. Long sheath placed in the right atrium Left and right transseptal catheterization performed under intracardiac echo guidance. Intravenous heparin with aCT above 300 Later, catheter positioning and balloon positioning in the left atrium and pulmonary veins, under intracardiac echo guidance Diagnostic EP study with coronary sinus pacing and recording Baseline measurements: Sinus cycle length 958 ms, ID interval 125, QRS 99 and QT 425 ms AH 84 and HV 46 AV node Wenckebach block 390 ms Sinus node recovery times at 600, 504 100 ms were 1446, 1428 and 1331 ms Isuprel was used AV node Wenckebach block was less than 260 ms Transseptal catheterization performed RA pressure 20/15/17 LA pressure 30/13/20 Transseptal catheterization performed with standard sheath. The cryoablation sheath was then placed with an over the wire exchange without any acute complications. The cryoablation balloon was placed in the office of each pulmonary vein and all 4 pulmonary veins were isolated. IV dye was injected to confirm occlusion. Goal: achieve complete occlusion of the pulmonary vein, achieve -30 degrees C at 30 seconds and achieve -40 degrees C at 60 seconds and a time to effect of less than 60 seconds. If not, the balloon was repositioned to obtain this result After completion of Cryoblation with durations from 180-240 seconds, entrance block was confirmed with the Attain circular catheter in a roving fashion around the antrum of the pulmonary veins Phrenic nerve pacing was performed from the SVC, right innominate vein area and diaphragm voltage was monitored. Diaphragmatic contractions were also monitored manually for strength of contraction. At the end of the procedure the Achieve catheter was once again used to check for entrance block Phrenic nerve stimulation was performed to confirm diaphragmatic stimulation the end of the procedure Cine fluoroscopy was performed at the very end of the procedure to confirm movement of both diaphragms with inspiration and expiration At the end of the procedure the patient was extubated Venous sheaths were removed and hemostasis assured with a closure device PROCEDURES PERFORMED Diagnostic EP study CS pacing and recording Left and right transseptal catheterization Catheter the mapping of the tachycardia Intracardiac echocardiography Pulmonary vein isolation with transseptal and comprehensive EPS, [id number] Drug infusion, +[id number]
--- NOTE | 2021-05-29 14:02 | P.EPPROC ---
- EP Procedure Note Electrophysiology Procedure Note: Patient has a Medtronic dual-chamber pacemaker This was interrogated prior to the procedure Lead impedances were documented and within the mid 400s Pacemaker was reprogrammed to AAI-DDD 50 Rate-responsive Mrs. turned off At the end of the procedure fluoroscopy revealed stable atrial and RV lead position Pacemaker was interrogated Lead impedances are stable at 458 for the atrial lead and 418 for the RV lead The device was then reprogrammed to AAI-DDDR 50-1:30 bpm
[2021-05-29] MEDS ORDERED: ACETAMINOPHEN IV (For NPO) 1,000 MG in EMPTY BAG 1 BAG IVPB ONE (15:00)
[2021-05-29] MEDS: traMADol 50 MG TAB PO PRN (16:12)
[2021-05-29] MEDS: glipiZIDE 10 MG TAB PO SCH (17:27)
[2021-05-29] MEDS: INSULIN ASPART (NovoLOG) 100 UNIT/ML VIAL SQ SCH ×2 (17:27→21:53)
[2021-05-29 17:31] LABS: Glucose,Whole Blood 99 mg/dL (75-99)
[2021-05-29] MEDS ORDERED: ATORVASTATIN 10 MG TAB PO SCH (21:00)
[2021-05-29] MEDS ORDERED: INSULIN DETEMIR (LEVEMIR) 100 UNIT/ML SYR SQ SCH (21:00)
[2021-05-29] MEDS ORDERED: rOPINIRole HCL 4 MG TABLET PO SCH (21:00)
[2021-05-29 21:31] LABS: Glucose,Whole Blood 146 mg/dL (75-99)
[2021-05-29] MEDS: FUROSEMIDE 20 MG TAB PO SCH (21:41)
[2021-05-29] MEDS: ACETAMINOPHEN TAB 325 MG TAB PO PRN (21:42)
[2021-05-29 21:52] VITALS: RESP 18
[2021-05-30] MEDS: traMADol 50 MG TAB PO PRN (02:09)
[2021-05-30 04:05] VITALS: TEMP 97.9
[2021-05-30] MEDS: ACETAMINOPHEN TAB 325 MG TAB PO PRN (05:36)
[2021-05-30] MEDS ORDERED: LEVOTHYROXINE 75 MCG TAB PO SCH (06:30)
[2021-05-30] MEDS ORDERED: PANTOPRAZOLE 40 MG TABLET PO SCH (07:30)
[2021-05-30 08:01] LABS: Glucose,Whole Blood 136 mg/dL (75-99)
[2021-05-30] MEDS: INSULIN ASPART (NovoLOG) 100 UNIT/ML VIAL SQ SCH (08:07)
[2021-05-30] MEDS: glipiZIDE 10 MG TAB PO SCH (08:08)
[2021-05-30] MEDS: FUROSEMIDE 20 MG TAB PO SCH (08:09)
--- NOTE | 2021-05-30 08:37 | P.DS ---
Providers Attending physician: Juan Miguel Goyal Primary care physician: Lilli Martinez [facility] Course: Patient is doing well. She's sitting up in bed No chest discomfort no dizziness no lightheadedness Minimal swelling in the right groin with tenderness No swelling in the left groin Normal lung sounds no rhonchi no crackles Ejection systolic murmur over the precordium Abdomen is soft nontender No lower extremity edema No JVD The patient does not have any pleuritic chest discomfort dizziness lightheadedness Impression Paroxysmal atrial fibrillation, symptomatic Status post cryoablation of the pulmonary veins Mild aortic stenosis CAD status post coronary stenting Suggest Continue anticoagulation Continue medications and follow with Dr. Dr. Mendez within the week Plan - Discharge Summary Discharge Rx Participant: No New Discharge Prescriptions: Continue glipiZIDE [Glucotrol] 10 mg PO BID Hydrocodone/Acetaminophen [Hydrocodone-Acetamin 10-325 mg] 10 - 325 tab PO Q8H PRN PRN Reason: Pain Lisinopril [Prinivil] 10 mg PO QAM Aspirin [Adult Low Dose Aspirin EC] 81 mg PO DAILY Levothyroxine Sodium [Synthroid] 150 mcg PO DAILY traMADol HCL [Ultram] 50 mg PO Q6H PRN PRN Reason: Pain rOPINIRole HCL [Requip] 8 mg PO HS Vitamin C/Biotin [Hair, Skin and Nails Chew] 1 tab PO DAILY Albuterol Nebulized [Ventolin Nebulized] 2.5 mg INHALATION Q6H PRN PRN Reason: Shortness Of Breath Insulin Aspart [NovoLOG] 0 units SQ TID-W/MEALS Pantoprazole Sodium 40 mg PO DAILY Insulin Detemir [Levemir Flextouch Pen] 30 units SQ HS Rivaroxaban [Xarelto] 20 mg PO DAILY Furosemide [Lasix] 20 mg PO BID Potassium Chloride [Klor-Con 20] 20 meq PO DAILY Pitavastatin Calcium [Livalo] 2 mg PO HS Metoprolol Succinate (ER) [Toprol XL] 75 mg PO DAILY #90 tab Insulin Glargine/Lixisenatide [Soliqua 100 Unit-33 Mcg/ml Pen] 20 units SQ DAILY Discharge Medication List Aspirin [Adult Low Dose Aspirin EC] 81 mg PO DAILY 08/26/15 [History] Hydrocodone/Acetaminophen [Hydrocodone-Acetamin 10-325 mg] 10 - 325 tab PO Q8H PRN 08/26/15 [History] Lisinopril [Prinivil] 10 mg PO QAM 08/26/15 [History] glipiZIDE [Glucotrol] 10 mg PO BID 08/26/15 [History] Levothyroxine Sodium [Synthroid] 150 mcg PO DAILY 09/23/17 [History] rOPINIRole HCL [Requip] 8 mg PO HS 09/23/17 [History] traMADol HCL [Ultram] 50 mg PO Q6H PRN 09/23/17 [History] Albuterol Nebulized [Ventolin Nebulized] 2.5 mg INHALATION Q6H PRN 07/28/20 [History] Furosemide [Lasix] 20 mg PO BID 07/28/20 [History] Insulin Aspart [NovoLOG] 0 units SQ TID-W/MEALS 07/28/20 [History] Insulin Detemir [Levemir Flextouch Pen] 30 units SQ HS 07/28/20 [History] Pantoprazole Sodium 40 mg PO DAILY 07/28/20 [History] Pitavastatin Calcium [Livalo] 2 mg PO HS 07/28/20 [History] Potassium Chloride [Klor-Con 20] 20 meq PO DAILY 07/28/20 [History] Rivaroxaban [Xarelto] 20 mg PO DAILY 07/28/20 [History] Vitamin C/Biotin [Hair, Skin and Nails Chew] 1 tab PO DAILY 07/28/20 [History] Metoprolol Succinate (ER) [Toprol XL] 75 mg PO DAILY #90 tab 07/31/20 [Rx] Insulin Glargine/Lixisenatide [Soliqua 100 Unit-33 Mcg/ml Pen] 20 units SQ DAILY 05/04/21 [History] Follow up Appointment(s)/Referral(s): Juan Miguel Goyal MD [STAFF PHYSICIAN] - As Needed Annabel Mendez MD [STAFF PHYSICIAN] - 1 Week (Post ablation groin check with Dr. Mendez) Activity/Diet/Wound Care/Special Instructions: Post EP study - Ablation instructions 1. Keep access sites dry for 2 days. 2. No heavy lifting or straining for 2 days. 3. Avoid bending the hips repeatedly for 2 days. 4. You may go up and down stairs slowly Call if the following is noted 1. Bleeding, increasing swelling or pain at the access sites. 2. Increasing chest discomfort, especially upon taking a deep breath. 3. Increasing shortness of breath, at rest or with exertion. 4. Undue cough / phlegm 5. Difficulty or pain while swallowing. 6. Pain or change in color in the extremities. 7. Fever, chills, rigors. 8. Increasing headache or neurologic symptoms. 9. Dizziness, fainting, palpitations Continue all medications including xarelto unchanged
[2021-05-30] MEDS ORDERED: RIVAROXABAN 20 MG TAB PO SCH (09:00)
[2021-05-30] MEDS ORDERED: METOPROLOL SUCCINATE (ER) 25 MG TAB.ER.24H PO SCH (09:00)
[2021-05-30] MEDS ORDERED: ASPIRIN 81 MG PO SCH (09:00)
[2021-05-30] MEDS ORDERED: lisinopriL 10 MG TAB PO SCH (09:00)
[2021-05-30] MEDS ORDERED: POTASSIUM CHLORIDE ER 20 MEQ TAB.ER PO SCH (09:00)
[2021-05-30 09:33] VITALS: BP 134/66; PULSE 60
== END 2021-05-30 11:37 | disposition home or self-care (01) ==
LOC: CATHEP 08:51 → 6NMEDSUR 14:07 → CATHEP 05-30 11:37
PROVIDERS: ATTEND Internal Medicine Clinical Cardiac Electrophysiology
DX: I48.0 Paroxysmal atrial fibrillation (principal); I10 Essential (primary) hypertension; E11.9 Type 2 diabetes mellitus without complications
CPT/HCPCS: 93656; 93623; J0690; J2001; J0131; Q9967; J1644; 93609

== ENCOUNTER → 2022-01-10 | Outpatient (CLI) | payer MEDICARE, OTHER ==
[2022-01-10 19:10] LABS: HCT 38.3 % (37.2-46.3); HGB 11.7 g/dL (12.0-15.0); MCH 26.6 pg (27.0-32.0); MCHC 30.5 g/dL (32.0-37.0); Mean Platelet Volume 11.7 fL (9.5-12.2); NRBC Per 100 WBC 0 /100 WBCS (0.0-0.0); Platelet Count 345 X 10*3/uL (140-440); WBC 9.41 X 10*3/uL (4.50-10.00)
[2022-01-10 19:57] LABS: African American GFR (CKD) 70.9 (60.0-200.0); Blood Urea Nitrogen 34.3 mg/dL (9.0-27.0); Non-African American GFR(CKD) 61.2 (60.0-200.0); Potassium 4.8 mmol/L (3.5-5.5)
== END | disposition home or self-care (01) ==
LOC: LABPAT 13:15
PROVIDERS: ATTEND Internal Medicine
DX: Z01.812 Encounter for preprocedural laboratory examination (principal); I73.9 Peripheral vascular disease, unspecified; E78.2 Mixed hyperlipidemia
CPT/HCPCS: 80051; 82565; 84520; 85027

== ENCOUNTER 2022-01-19 06:25 | Day surgery (SDC) | payer MEDICARE, OTHER ==
[2022-01-18 14:31] VITALS: BMI 29.1
[~2022-01-19 06:25] MED LIST changes: +ALPRAZolam 0.25 MG TAB PO PRN; +ALPRAZolam 0.5 MG TAB PO PRN; +ASPIRIN 325 MG TAB PO PRN; -LACTATED RINGERS 1,000 ML IV SCH; +SODIUM CHLORIDE 0.9% 1,000 ML in EMPTY BAG 1 BAG IV ONE
[2022-01-19] MEDS ORDERED: SODIUM CHLORIDE 0.9% 1,000 ML IV ONE (06:57)
[2022-01-19 07:07] LABS: Glucose,Whole Blood 78 mg/dL (70-110)
[2022-01-19 07:15] VITALS: RESP 16; TEMP 98.2
[2022-01-19] MEDS ORDERED: fentaNYL (PF) 50 MCG/ML 2 ML AMP IV ONE (07:46)
[2022-01-19] MEDS ORDERED: MIDAZOLAM 2 MG/2 ML VIAL IV ONE (07:46)
[2022-01-19] MEDS ORDERED: LIDOCAINE 1% INJ 10MG/ML (30 ML VIAL-PF) SQ ONE (07:50)
[2022-01-19] MEDS ORDERED: VERAPAMIL SYRINGE (5 MG/10 ML) INTRAARTER ONE (07:51)
[2022-01-19 07:52] LABS: Glucose,Whole Blood 100 mg/dL (70-110)
[2022-01-19] MEDS ORDERED: HEPARIN SODIUM 1,000 UN/ML (10ML VL) IV ONE (07:55)
[2022-01-19] MEDS ORDERED: IOPAMIDOL-250 100ML BTL INTRAARTER ONE ×2 (08:21→08:23)
--- NOTE | 2022-01-19 10:55 | IR ---
Fluoroscopy HISTORY: Peripheral artery disease 6.1 minutes fluoroscopy time supplied to the referring clinician. 269 intraoperative C-arm images do cument the procedure. See dictated report from cardiology.
[2022-01-19 11:59] LABS: Glucose,Whole Blood 208 mg/dL (70-110)
--- NOTE | 2022-01-19 13:45 | P.PCN ---
Description of Procedure: PROCEDURES PERFORMED: Abdominal angiography with RLE runoff INDICATION: PAD, abnormal ultrasound LE CONSENT:I have discussed the risks, benefits and alternative therapies for the above-mentioned procedure and for both sedation/analgesia as well as necessary blood product administration, if indicated, as they pertain to this patient. The patient has indicated understanding and acceptance of the risks and procedures discussed. PROCEDURE: After the risks, benefits and alternatives of the above mentioned procedure explained in detail with the patient, informed consent was obtained. Patient was taken to the catheterization lab and prepped and draped in usual fashion. 1% lidocaine was used to anesthetize the right radial area. A 6- Polish sheath was placed in the right radial artery using modified Seldinger technique. A 5-Polish pigtail catheter was inserted to the descending abdominal aorta and DSA imaging was obtained with power injection. A TR band was deployed and hemostasis achieved. The patient tolerated the procedure well. Patient was transported back to the post catheterization holding area in stable condition. Conscious Sedation: Patient was monitored under the direct supervision of vision of myself for conscious sedation using Versed and fentanyl for a total duration of 33 minutes HEMODYNAMICS: Ao: 144/78 Abdominal aorta: The abdominal aorta has mild calcifcation. Renal arteries are patent. There is no significant dissection or aneurysm. There is no significant stenosis. Right lower extremity: Right common iliac artery: There is no significant stenosis. Right external iliac artery: There is no significant stenosis. Right internal iliac artery: There is no significant stenosis. Right common femoral artery: There is a distal right common femoral 100% stenosis. Right profunda: There is no significant stenosis. Right SFA: There is slower flow noted in the right SFA due to common femoral lesion however appears to have a distal R SFA 90% stenosis. Right popliteal artery: There appears to be a 100% mid popliteal stenosis with collaterals from the profunda to the mid popliteal. Right tibioperoneal trunk: There is no significant stenosis. Right anterior tibial artery: There is 100% stenosis. Right posterior tibial artery: There is 100% stenosis. Right peroneal artery: There is no significant stenosis. Left lower extremity: Left common iliac artery: There is a proximal left common iliac 90% stenosis. Left external iliac artery: There is no significant stenosis. Left internal iliac artery: There is no significant stenosis. Left common femoral artery: There is no significant stenosis. Left profunda: There is no significant stenosis. Left SFA: There is a distal 90% and 95% stenoses. Left popliteal artery: There is no significant stenosis. Left tibioperoneal trunk: There is no significant stenosis. Left anterior tibial artery: There is no significant stenosis. Left posterior tibial artery: There is 100% stenosis. Left peroneal artery: There is no significant stenosis. FINAL IMPRESSION: 1. Peripheral arterial disease as described above including right common 100%, right SFA 90%, right popliteal 100%, right AT 100%, right PT 100%; left common iliac 90%, left SFA 90%/95% and left PT 100% stenosis. PLAN: 1. Aggressive risk factor modification per most recent ACC/AHA guidelines. 2. Given location of right common femoral 100% stenosis, recommended therapy is right common femoral endarterectomy and then would consider endovascular intervention of remaining lesions if needed. Patient will followup with Dr Edwards for endarterectomy.
[2022-01-19 14:22] VITALS: BP 147/85; PULSE 65
== END 2022-01-19 12:20 | disposition home or self-care (01) ==
LOC: CATHCVL 06:25
PROVIDERS: ATTEND Internal Medicine
DX: I25.10 Atherosclerotic heart disease of native coronary artery without angina pectoris (principal); E11.51 Type 2 diabetes mellitus with diabetic peripheral angiopathy without gangrene; I70.213 Atherosclerosis of native arteries of extremities with intermittent claudication, bilateral legs; Z20.822 Contact with and (suspected) exposure to COVID-19
CPT/HCPCS: 36200; 75625; 75716; 87635; C1769 ×3; C1894 ×2; J2250; J2001; J3010; J1644; Q9966

== ENCOUNTER 2022-02-03 16:59 | Emergency (ER) | payer MEDICARE, OTHER ==
--- NOTE | 2022-02-03 19:24 | ED ---
General Adult HPI - General Chief complaint: Upper Respiratory Infection Stated complaint: COVID+, sob Time Seen by Provider: 02/03/22 19:14 Source: patient Mode of arrival: wheelchair Limitations: no limitations - History of Present Illness Initial comments: Patient presents to the ED complaining of having a fever, chills, cough and dyspnea since this morning. Patient states that she took a home Covid test today, which was positive. Patient states that she has COPD, and she states that she has been using her inhalers and nebulizer machine with temporary relief. Patient denies having any pain, headache, focal neuro deficit, chest pain, hemoptysis, palpitations, dizziness, abdominal pain, nausea/vomiting/diarrhea, dysuria or urinary symptoms, decreased urine output, leg or calf swelling or pain, or any other symptoms or complaints. Patient denies taking any antipyretic medication today. - Related Data Home Medications Medication Instructions Recorded Confirmed Aspirin [Adult Low Dose Aspirin EC] 81 mg PO DAILY 08/26/15 01/18/22 Hydrocodone/Acetaminophen 10 - 325 tab PO Q8H PRN 08/26/15 01/18/22 [Hydrocodone-Acetamin 10-325 mg] glipiZIDE [Glucotrol] 10 mg PO BID 08/26/15 01/18/22 Levothyroxine Sodium [Synthroid] 150 mcg PO DAILY 09/23/17 01/18/22 rOPINIRole HCL [Requip] 8 mg PO HS 09/23/17 01/18/22 traMADol HCL [Ultram] 50 mg PO Q6H PRN 09/23/17 01/18/22 Albuterol Nebulized [Ventolin 2.5 mg INHALATION Q6H PRN 07/28/20 01/18/22 Nebulized] Furosemide [Lasix] 20 mg PO BID 07/28/20 01/18/22 Insulin Aspart [NovoLOG] 0 units SQ TID-W/MEALS 07/28/20 01/18/22 Insulin Detemir [Levemir Flextouch 30 units SQ HS 07/28/20 01/18/22 Pen] Pantoprazole Sodium 40 mg PO DAILY 07/28/20 01/18/22 Pitavastatin Calcium [Livalo] 2 mg PO HS 07/28/20 01/18/22 Potassium Chloride [Klor-Con 20] 20 meq PO DAILY 07/28/20 01/18/22 Rivaroxaban [Xarelto] 20 mg PO DAILY 07/28/20 01/18/22 Insulin Glargine/Lixisenatide 20 units SQ DAILY 05/04/21 01/18/22 [Soliqua 100 Unit-33 Mcg/ml Pen] Fluticasone/Umeclidin/Vilanter 1 puff INHALATION DAILY 01/18/22 01/18/22 [Trelegy Ellipta 200-62.5-25] metFORMIN HCL 1,000 mg PO BID 01/18/22 01/18/22 rOPINIRole HCL [Requip XL] 4 mg PO DAILY PRN 01/18/22 01/18/22 Previous Rx's Medication Instructions Recorded predniSONE [Deltasone] 20 mg PO BID #10 tab 02/03/22 Allergies Allergy/AdvReac Type Severity Reaction Status Date / Time latex Allergy Rash/Hives Verified 02/03/22 17:01 Review of Systems ROS Statement: Those systems with pertinent positive or pertinent negative responses have been documented in the HPI. ROS Other: All systems not noted in ROS Statement are negative. Past Medical History Past Medical History: Atrial Fibrillation, Asthma, COPD, Diabetes Mellitus, Fibromyalgia, GERD/Reflux, Hyperlipidemia, Hypertension, Thyroid Disorder, Vascular Disorder Additional Past Medical History / Comment(s): Restless leg syndrome, History of Any Multi-Drug Resistant Organisms: None Reported Past Surgical History: Heart Catheterization With Stent, Pacemaker, Tubal Ligation Additional Past Surgical History / Comment(s): THYROIDECTOMY, CTR-RT WRIST, Cataract surgery R/L eye., one cardiac stent Past Anesthesia/Blood Transfusion Reactions: Postoperative Nausea & Vomiting (PONV) Date of Last Stent Placement:: unknown Type of Cardiac Device: Biventricular Pacemaker Device Placement Date:: 07/29/2020 Past Psychological History: No Psychological Hx Reported Smoking Status: Former smoker - Past Family History Son(s) Additional Family Medical History / Comment(s): BLINDNESS FROM DIABETES. Father Family Medical History: Cancer General Exam Limitations: no limitations General appearance: alert, in no apparent distress Head exam: Present: atraumatic, normocephalic Eye exam: Present: normal appearance, EOMI ENT exam: Present: mucous membranes moist Neck exam: Present: other (Trachea is in midline) Respiratory exam: Present: other (Bilateral expiratory wheezes). Absent: respiratory distress, rales, rhonchi, stridor Cardiovascular Exam: Present: regular rate, normal rhythm, normal heart sounds, other (Normal renal pulses bilaterally) GI/Abdominal exam: Present: soft. Absent: distended, tenderness, guarding Extremities exam: Present: other (Negative Homans sign bilaterally). Absent: tenderness, pedal edema, calf tenderness Neurological exam: Present: alert, oriented X3. Absent: motor sensory deficit Psychiatric exam: Present: normal affect, normal mood Skin exam: Present: warm, dry, intact, normal color Course Vital Signs 02/03/22 02/03/22 17:01 19:55 Temperature 101.1 F H Pulse Rate 90 Respiratory 16 22 Rate Blood Pressure 161/60 O2 Sat by Pulse 93 L Oximetry - Reevaluation(s) Reevaluation #1: 02/03/22 21:45 Patient states that her dyspnea has improved with the DuoNeb treatment that she was given in the ED, and patient's wheezing has now improved on examination. Patient continues to be breathing comfortably. Patient is aware of her test results, and she feels comfortable being discharged home at this time. Patient was counseled about Covid and was given isolation precautions. Patient was clearly explained return and follow-up instructions, and she was instructed to follow up closely with her primary care provider. Patient feels comfortable this plan. Medical Decision Making - Medical Decision Making Patient's chest x-ray is negative. Patient is breathing comfortably in the ED. I suspect that the patient's dyspnea is likely secondary to Covid infection wi th COPD exacerbation. Will discharge patient home with a prescription for a course of prednisone. Patient was also instructed to continue using her home inhaler/nebulizer treatments as prescribed/as needed. Will discharge patient home at this time. Patient feels comfortable with this plan. - Lab Data Lab Results 02/03/22 02/03/22 Range/Units 19:02 21:05 POC Glucose (mg/dL) 258 H (70-110) mg/dL POC Glu [employer] ID Cecily Clark Coronavirus (PCR) Detected A (Not Detectd) - Radiology Data Chest x-ray: No active cardiopulmonary disease. Disposition Clinical Impression: COVID-19, COPD exacerbation Disposition: HOME SELF-CARE Condition: Stable Instructions (If sedation given, give patient instructions): COVID-19 (Coronavirus Disease 2019) (ED), COPD (Chronic Obstructive Pulmonary Disease) (ED) Additional Instructions: Return to the ER immediately should you develop increased shortness of breath, chest pain, feeling dizzy or faint, or new or worsening symptoms. Follow up closely with your primary care provider. Prescriptions: predniSONE [Deltasone] 20 mg PO BID #10 tab Is patient prescribed a controlled substance at d/c from ED?: No Referrals: Lilli Cabrales MD [Primary Care Provider] - 1-2 days Time of Disposition: 21:54
[2022-02-03] MEDS ORDERED: ACETAMINOPHEN TAB 500 MG TAB PO STA (19:29)
[2022-02-03] MEDS ORDERED: predniSONE 20 MG TAB PO STA (19:29)
[2022-02-03] MEDS ORDERED: IPRATROPIUM-ALBUTEROL 3 ML NEB INHALATION STA (19:29)
--- NOTE | 2022-02-03 19:50 | XR ---
EXAMINATION TYPE: XR chest 2V DATE OF EXAM: 02/03/2022 COMPARISON: NONE HISTORY: Chest pain TECHNIQUE: FINDINGS: Heart is normal. Lungs are clear of infiltrate. No heart failure. There are no hilar masses . Costophrenic angles are clear. There is left axillary pacemaker. IMPRESSION: No active cardiopulmonary disease.
[2022-02-03] MEDS ORDERED: ALBUTEROL HFA INHALER INHALATION PRN (20:01)
[2022-02-03 21:06] LABS: Glucose,Whole Blood 258 mg/dL (70-110)
[2022-02-03 21:48] VITALS: BP 152/66; PULSE 84; RESP 16; TEMP 99.4
== END 2022-02-03 22:06 | disposition home or self-care (01) ==
LOC: EC 16:59
DX: U07.1 COVID-19 (principal); J44.1 Chronic obstructive pulmonary disease with (acute) exacerbation; E11.9 Type 2 diabetes mellitus without complications; I48.91 Unspecified atrial fibrillation; I10 Essential (primary) hypertension; K21.9 Gastro-esophageal reflux disease without esophagitis; Z87.891 Personal history of nicotine dependence; E07.9 Disorder of thyroid, unspecified; Z79.51 Long term (current) use of inhaled steroids; Z79.84 Long term (current) use of oral hypoglycemic drugs; Z79.4 Long term (current) use of insulin; Z79.890 Hormone replacement therapy; Z79.899 Other long term (current) drug therapy
CPT/HCPCS: 99284; 36415; 94640; 87635; 71046; J7512

== ENCOUNTER 2022-05-10 05:33 | Inpatient (IN) | payer MEDICARE, OTHER ==
[2022-05-10] MEDS ORDERED: HYDROmorphone 0.5 MG/0.5 ML SYRINGE IVP PRN (06:03)
[2022-05-10] MEDS: LACTATED RINGERS 1,000 ML IV SCH (06:40)
[2022-05-10 06:49] LABS: Glucose,Whole Blood 95 mg/dL (70-110)
[2022-05-10] MEDS: ONDANSETRON 4 MG/2 ML VIAL IVP ONE ×2 (06:55→11:12)
[2022-05-10 07:12] LABS: Basophils # (A) 0.1 k/uL (0-0.2); Basophils % (A) 1 %; Eosinophils # (A) 0.3 k/uL (0-0.7); Eosinophils % (A) 3 %; HCT 37.7 % (34.0-46.0); Hypochromasia Moderate; Lymphocytes % (A) 36 %; MCH 26.8 pg (25.0-35.0); MCHC 31.7 g/dL (31.0-37.0); MCV 84.5 fL (80.0-100.0); Mean Platelet Volume 8.4; Monocytes # (A) 0.6 k/uL (0-1.0); Monocytes % (A) 8 %; Neutrophils # (A) 4.2 k/uL (1.3-7.7); Neutrophils % (A) 50 %; Platelet Count 395 k/uL (150-450); RBC 4.46 m/uL (3.80-5.40); RDW 13.8 % (11.5-15.5); WBC 8.4 k/uL (3.8-10.6)
[2022-05-10] MEDS ORDERED: ROCURONIUM 10 MG/ML (5 ML VIAL) IV ONE (07:20)
[2022-05-10] MEDS ORDERED: NEOSTIGMINE 1 MG/ML 10 ML VIAL ONE (07:20)
[2022-05-10] MEDS ORDERED: SUCCINYLCHOLINE CHLORIDE 200 MG/10 ML VIAL IV ONE (07:20)
[2022-05-10] MEDS ORDERED: LIDOCAINE 2% INJ 20 MG/ML (2 ML VIAL) ONE (07:20)
[2022-05-10] MEDS ORDERED: MIDAZOLAM 2 MG/2 ML VIAL ONE (07:20)
[2022-05-10] MEDS ORDERED: GLYCOPYRROLATE 0.2 MG/ML 2 ML VIAL ONE (07:20)
[2022-05-10] MEDS ORDERED: PHENYLEPHRINE-0.9% NACL SYG 1,000 MCG/10 ML SYRINGE ONE (07:20)
[2022-05-10] MEDS ORDERED: ePHEDrine 50 MG/ML 1 ML VIAL ONE (07:20)
[2022-05-10] MEDS ORDERED: HEPARIN SODIUM,PORCINE 10,000 UNIT/ML 1 ML VIAL ONE (07:20)
[2022-05-10] MEDS ORDERED: fentaNYL (PF) 50 MCG/ML 2 ML AMP ONE (07:20)
[2022-05-10] MEDS ORDERED: PROPOFOL 10 MG/ML 20 ML VIAL IV ONE (07:20)
[2022-05-10 07:25] LABS: Albumin 4.5 g/dL (3.5-5.0); Calcium 9.3 mg/dL (8.4-10.2); Potassium 4.4 mmol/L (3.5-5.1); Total Bilirubin 0.4 mg/dL (0.2-1.3)
--- NOTE | 2022-05-10 07:29 | P.HPIHPCON ---
History of Present Illness H&P Date: 05/10/22 Rebekah is a 61-year-old female in today for intervention on her right femoral artery. She previously underwent imaging with her information receptionist showed right femoral artery disease and had diminished pulses therefore she presents today for this after long discussion regarding the risks and benefits of the procedure. Nothing has changed since her office visit. Consent for Procedure: I have explained the operation/procedure to the patient, including the risks, benefits, side effects, alternative therapies (including not receiving the proposed treatment or service), the likelihood of the patient achieving his/her goals, and potential recuperation problems for the procedure/sedation/analgesia, as well as any blood products, if indicated. I also explained to the patient the risks, benefits and side effects of the alternatives, as well as the risks related to not receiving the proposed procedure, care, treatment, or services. Past Medical History Past Medical History: Atrial Fibrillation, Asthma, COPD, Diabetes Mellitus, Fibromyalgia, GERD/Reflux, Hyperlipidemia, Hypertension, Thyroid Disorder, Vascular Disorder Additional Past Medical History / Comment(s): Restless leg syndrom. COVID 02/03/22 History of Any Multi-Drug Resistant Organisms: None Reported Past Surgical History: Heart Catheterization With Stent, Pacemaker, Tubal Lig ation Additional Past Surgical History / Comment(s): BI VENTRICULAR PACER. THYROIDECTOMY, CTR-RT WRIST, Cataract surgery R/L eye., one cardiac stent Past Anesthesia/Blood Transfusion Reactions: Postoperative Nausea & Vomiting (PONV) Date of Last Stent Placement:: unknown Type of Cardiac Device: Biventricular Pacemaker Device Placement Date:: 07/29/2020 Past Psychological History: No Psychological Hx Reported Smoking Status: Former smoker Past Alcohol Use History: Rare Additional Past Alcohol Use History / Comment(s): QUIT: 2005. SMOKED FOR: 30 YRS. PPD: .5 Past Drug Use History: None Reported Additional Drug Use History / Comment(s): denies currentl use - Past Family History Son(s) Additional Family Medical History / Comment(s): BLINDNESS FROM DIABETES. Father Family Medical History: Cancer Medications and Allergies Home Medications Medication Instructions Recorded Confirmed Type Aspirin [Adult Low Dose Aspirin EC] 81 mg PO DAILY 08/26/15 05/10/22 History Hydrocodone/Acetaminophen 10 - 325 tab PO Q8H PRN 08/26/15 05/10/22 History [Hydrocodone-Acetamin 10-325 mg] glipiZIDE [Glucotrol] 10 mg PO BID 08/26/15 05/10/22 History Levothyroxine Sodium [Synthroid] 137 mcg PO QAM 09/23/17 05/07/22 History rOPINIRole HCL [Requip] 8 mg PO HS 09/23/17 05/07/22 History traMADol HCL [Ultram] 50 mg PO Q6H PRN 09/23/17 05/07/22 History Albuterol Nebulized [Ventolin 2.5 mg INHALATION Q6H PRN 07/28/20 05/10/22 History Nebulized] Furosemide [Lasix] 20 mg PO BID 07/28/20 05/10/22 History Insulin Aspart [NovoLOG] 0 units SQ TID-W/MEALS 07/28/20 05/07/22 History Insulin Detemir [Levemir Flextouch 50 units SQ HS 07/28/20 05/10/22 History Pen] Pantoprazole Sodium 40 mg PO QAM 07/28/20 05/07/22 History Pitavastatin Calcium [Livalo] 2 mg PO HS 07/28/20 05/07/22 History Potassium Chloride [Klor-Con 20] 20 meq PO DAILY 07/28/20 05/07/22 History Rivaroxaban [Xarelto] 20 mg PO DAILY 07/28/20 05/07/22 History Fluticasone/Umeclidin/Vilanter 1 puff INHALATION DAILY 01/18/22 05/07/22 History [Trelegy Ellipta 200-62.5-25] metFORMIN HCL 1,000 mg PO BID 01/18/22 05/10/22 History rOPINIRole HCL [Requip XL] 4 mg PO DAILY PRN 01/18/22 05/07/22 History predniSONE 20 mg PO DAILY PRN 05/07/22 05/10/22 History Allergies Allergy/AdvReac Type Severity Reaction Status Date / Time latex Allergy Rash/Hives Verified 05/10/22 06:22 Surgical - Exam Vital Signs Temp Pulse Resp BP Pulse Ox 97.5 F L 82 16 147/67 94 L 05/10/22 06:35 05/10/22 06:35 05/10/22 06:35 05/10/22 06:35 05/10/22 06:35 Gen. a pleasant cooperative female, slightly anxious. No acute distress. Resting comfortably. Heart appears regular. Lungs are clear. Abdomen is soft. Extremity show no clubbing, cyanosis or edema. Weakly palpable femoral pulses. No palpable pedal pulses. Results - Labs 05/10/22 06:45 05/10/22 06:45 Abnormal Lab Results - Last 24 Hours (Table) 05/10/22 Range/Units 06:45 Sodium 136 L (137-145) mmol/L BUN 41 H (7-17) mg/dL Creatinine 1.24 H (0.52-1.04) mg/dL Diabetes panel 05/10/22 Range/Units 06:45 Sodium 136 L (137-145) mmol/L Potassium 4.4 (3.5-5.1) mmol/L Chloride 100 (98-107) mmol/L Carbon Dioxide 27 (22-30) mmol/L BUN 41 H (7-17) mg/dL Creatinine 1.24 H (0.52-1.04) mg/dL Glucose 93 (74-99) mg/dL Calcium 9.3 (8.4-10.2) mg/dL AST 27 (14-36) U/L ALT 21 (4-34) U/L Alkaline Phosphatase 87 (38-126) U/L Total Protein 8.0 (6.3-8.2) g/dL Albumin 4.5 (3.5-5.0) g/dL Calcium panel 05/10/22 Range/Units 06:45 Calcium 9.3 (8.4-10.2) mg/dL Albumin 4.5 (3.5-5.0) g/dL Pituitary panel 05/10/22 Range/Units 06:45 Sodium 136 L (137-145) mmol/L Potassium 4.4 (3.5-5.1) mmol/L Chloride 100 (98-107) mmol/L Carbon Dioxide 27 (22-30) mmol/L BUN 41 H (7-17) mg/dL Creatinine 1.24 H (0.52-1.04) mg/dL Glucose 93 (74-99) mg/dL Calcium 9.3 (8.4-10.2) mg/dL Adrenal panel 05/10/22 Range/Units 06:45 Sodium 136 L (137-145) mmol/L Potassium 4.4 (3.5-5.1) mmol/L Chloride 100 (98-107) mmol/L Carbon Dioxide 27 (22-30) mmol/L BUN 41 H (7-17) mg/dL Creatinine 1.24 H (0.52-1.04) mg/dL Glucose 93 (74-99) mg/dL Calcium 9.3 (8.4-10.2) mg/dL Total Bilirubin 0.4 (0.2-1.3) mg/dL AST 27 (14-36) U/L ALT 21 (4-34) U/L Alkaline Phosphatase 87 (38-126) U/L Total Protein 8.0 (6.3-8.2) g/dL Albumin 4.5 (3.5-5.0) g/dL Assessment and Plan Assessment: Leiter 3 peripheral arterial disease claudication 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 The patient seemingly understood and is willing to proceed
[2022-05-10] MEDS ORDERED: GELATIN SPONGE,ABSORB (LARGE) 1 EACH SPONGE TOPICAL ONE ×2 (08:18→09:08)
[2022-05-10] MEDS ORDERED: THROMBIN (BOVINE) 5,000 UNIT VIAL TOPICAL ONE ×3 (08:18→09:27)
[2022-05-10] MEDS ORDERED: ceFAZolin 2,000 MG in SODIUM CHLORIDE 0.9% 1,000 ML IRRIGATION ONE (08:19)
[2022-05-10] MEDS ORDERED: LACTATED RINGERS 1,000 ML IV ONE (09:28)
--- NOTE | 2022-05-10 09:55 | P.OP ---
Date of Procedure: 05/10/22 Description of Procedure: Preoperative diagnosis: Right femoral artery occlusive disease, maday 3 PAD Postoperative diagnosis: Same Procedure: Right femoral endarterectomy with patch angioplasty Surgeon: Lucía Edwards D.O. EBL: 75cc IV fluids: 800cc Urine output: 150cc Drains: none Complications: none immediately Condition: Stable to recovery Operative indication and findings: Patient is a 61-year-old female with significant peripheral arterial disease with previous underwent angiographic imaging which showed severe right common femoral artery occlusive disease therefore she was offered a femoral endarterectomy. Risks and benefits were discussed, she seemingly understood and was willing to proceed. Procedure in detail: The patient was taken to the operative suite and placed in supine position. Bilateral groins prepped and draped in usual sterile fashion. A preprocedure timeout was performed and all parties are in agreement. A vertical incision was made in the right groin with the scalpel. It was deepened through subcutaneous tissues with electrocautery. The encountered lymp hatics were ligated and divided. There were a few areas of discolored lymph nodes that were sent for pathologic evaluation The femoral sheath was opened sharply. The common femoral artery was dissected free circumferentially. The dissection was extended proximally to the level of the inguinal ligament, and distally to include the superficial femoral and profunda femoris arteries. They were encircled with vessel loops. ACTs were monitored and the patient was heparinized. Once heparinization was adequate, flow was occluded through the vessel. An 11 blade was utilized and arteriotomy is made the Horvath-Ceja scissors was utilized to enlarge the arteriotomy. An endarterectomy was performed with an eversion endarterectomy at the profunda femoris. The endarterectomized surface was cleared of all debris. The distal outflow superficial femoral artery was tacked with 7-0 Prolene as to not create a flap A bovine pericardial patch was utilized and anastomosis was created utilizing 5-0 Prolene. The anastomosis was flushed and flow was reinstituted. Hemostasis was achieved with interrupted sutures of 6-0 Prolene and thrombin and Gelfoam. A Doppler was used and revealed multiphasic flow distal to the anastomosis. At that point, the wound was copiously irrigated with antibiotic solution. The femoral sheath was reapproximated with interrupted sutures of 3-0 Vicryl. The subcuticular tissue was reapproximated with 3-0 Vicryl. The skin was reprepped with running sutures of 4-0 Monocryl. Dressing was placed. The patient was awakened from surgery, extubated and transferred to PACU in stable condition and tolerated the procedure well.
[2022-05-10] MEDS ORDERED: MORPHINE SULFATE 4 MG/ML SYRINGE IVP PRN (09:56)
[2022-05-10 10:31] LABS: Glucose,Whole Blood 121 mg/dL (70-110)
[2022-05-10] MEDS ORDERED: hydrALAZINE HCL 20 MG/ML 1 ML VIAL IVP ONE (11:50)
[2022-05-10] MEDS: HYDROcodone/APAP 5-325MG 1 EACH TAB PO PRN (16:01)
[2022-05-10] MEDS: traMADol 50 MG TAB PO PRN (20:49)
[2022-05-11 02:02] LABS: Glucose,Whole Blood 381 mg/dL (70-110)
[2022-05-11] MEDS ORDERED: DEXTROSE 50% SYRINGE 50 ML IVP PRN ×2 (02:22)
[2022-05-11] MEDS: INSULIN ASPART (NovoLOG) 100 UNIT/ML VIAL SQ SCH ×3 (02:36→12:12)
[2022-05-11] MEDS: HYDROcodone/APAP 5-325MG 1 EACH TAB PO PRN (02:57)
[2022-05-11] MEDS: LACTATED RINGERS 1,000 ML IV SCH (04:48)
[2022-05-11 06:07] LABS: Glucose,Whole Blood 272 mg/dL (70-110)
[2022-05-11 08:29] VITALS: RESP 18
[2022-05-11] MEDS ORDERED: RIVAROXABAN 20 MG TAB PO SCH (09:00)
[2022-05-11] MEDS ORDERED: ASPIRIN 81 MG PO SCH (09:00)
--- NOTE | 2022-05-11 09:04 | P.DS ---
Providers Date of admission: 05/10/22 05:33 Expected date of discharge: 05/11/22 Attending physician: Lucía Edwards, Consults: 05/10/22 09:56 Consult Physician Routine Consulting Provider: Mariaelena Haas Consult Reason/Comments: med management Do you want consulting provider notified?: Yes Primary care physician: Lilli anshul [facility] Course: This is a pleasant 61-year-old female who came in for scheduled intervention for the right femoral artery occlusive disease. She is postop day #1 for right femoral endarterectomy with patch angioplasty. She has been up and ambulating. Edwards catheter has been discontinued waiting to void. Patient states that she has improved pain to the right lower extremity, does have some surgical pain in the right groin. She has a Prevena dressing in place with good suction. Patient is afebrile. Tolerating her diet. Denies any shortness of breath or chest pain. Patient informed provider that she drove herself to the hospital and was planning on driving herself home. It was discussed with patient that she is not allowed to drive home and should not drive for at least 3-4 days due to her recent surgery. Discussed with her if she was unable to get a ride home we would provide a ride for her. Patient verbalized understanding. Exam General appearance: The patient is alert, oriented, appears in no acute distress. HET: Head is normocephalic and atraumatic. Pupils are equal and reactive. Neck: Supple without lymphadenopathy. Trachea midline. Heart: Regular. Lungs: Equal expansion, normal respiratory effort. Abdomen: Soft, nontender, nondistended. Extremities: Normal skin color and turgor. No cyanosis, rash, ulceration, clubbing, or edema. Bilateral lower extremities good capillary refill. Right groin with Prevena dressing in place. Right lower extremity warm to the touch, PT and DP Doppler signal present. Neurological: No focal deficits. Strength and sensation are grossly intact. The impression and plan of care has been dictated as directed. Dr. Edwards I performed a history and examination of this patient, discussed the same with the dictator. I agree with the dictator's note ,documented as a scribe. Any additional findings or plans will be noted. Procedures: Preoperative diagnosis: Right femoral artery occlusive disease, maday 3 PAD Postoperative diagnosis: Same Procedure: Right femoral endarterectomy with patch angioplasty Surgeon: Lucía Edwards D.O. Patient Condition at Discharge: Stable Plan - Discharge Summary Discharge Rx Participant: No New Discharge Prescriptions: No Action glipiZIDE [Glucotrol] 10 mg PO BID Hydrocodone/Acetaminophen [Hydrocodone-Acetamin 10-325 mg] 10 - 325 tab PO Q8H PRN PRN Reason: Pain Aspirin [Adult Low Dose Aspirin EC] 81 mg PO DAILY Levothyroxine Sodium [Synthroid] 137 mcg PO QAM traMADol HCL [Ultram] 50 mg PO Q6H PRN PRN Reason: RLS rOPINIRole HCL [Requip] 8 mg PO HS Albuterol Nebulized [Ventolin Nebulized] 2.5 mg INHALATION Q6H PRN PRN Reason: Shortness Of Breath Insulin Aspart [NovoLOG] 0 units SQ TID-W/MEALS Pantoprazole Sodium 40 mg PO QAM Insulin Detemir [Levemir Flextouch Pen] 50 units SQ HS Rivaroxaban [Xarelto] 20 mg PO DAILY Furosemide [Lasix] 20 mg PO BID Potassium Chloride [Klor-Con 20] 20 meq PO DAILY Pitavastatin Calcium [Livalo] 2 mg PO HS predniSONE 20 mg PO DAILY PRN PRN Reason: Shortness Of Breath Or Wheezing Fluticasone/Umeclidin/Vilanter [Trelegy Ellipta 200-62.5-25] 1 puff INHALATION DAILY metFORMIN HCL 1,000 mg PO BID rOPINIRole HCL [Requip XL] 4 mg PO DAILY PRN PRN Reason: RLS Discharge Medication List Aspirin [Adult Low Dose Aspirin EC] 81 mg PO DAILY 08/26/15 [History] Hydrocodone/Acetaminophen [Hydrocodone-Acetamin 10-325 mg] 10 - 325 tab PO Q8H P RN 08/26/15 [History] glipiZIDE [Glucotrol] 10 mg PO BID 08/26/15 [History] Levothyroxine Sodium [Synthroid] 137 mcg PO QAM 09/23/17 [History] rOPINIRole HCL [Requip] 8 mg PO HS 09/23/17 [History] traMADol HCL [Ultram] 50 mg PO Q6H PRN 09/23/17 [History] Albuterol Nebulized [Ventolin Nebulized] 2.5 mg INHALATION Q6H PRN 07/28/20 [History] Furosemide [Lasix] 20 mg PO BID 07/28/20 [History] Insulin Aspart [NovoLOG] 0 units SQ TID-W/MEALS 07/28/20 [History] Insulin Detemir [Levemir Flextouch Pen] 50 units SQ HS 07/28/20 [History] Pantoprazole Sodium 40 mg PO QAM 07/28/20 [History] Pitavastatin Calcium [Livalo] 2 mg PO HS 07/28/20 [History] Potassium Chloride [Klor-Con 20] 20 meq PO DAILY 07/28/20 [History] Rivaroxaban [Xarelto] 20 mg PO DAILY 07/28/20 [History] Fluticasone/Umeclidin/Vilanter [Trelegy Ellipta 200-62.5-25] 1 puff INHALATION DAILY 01/18/22 [History] metFORMIN HCL 1,000 mg PO BID 01/18/22 [History] rOPINIRole HCL [Requip XL] 4 mg PO DAILY PRN 01/18/22 [History] predniSONE 20 mg PO DAILY PRN 05/07/22 [History] Follow up Appointment(s)/Referral(s): Lucía Edwards DO [STAFF PHYSICIAN] - 2 Weeks Patient Instructions/Handouts: Remote Superficial Femoral Artery Endarterectomy (DC) Activity/Diet/Wound Care/Special Instructions: No driving for 3-4 days Avoid heavy lifting greater than 10 lbs , pushing, pulling, straining, flights of stairs for three days. Sponge bath until dressing removed, then may shower but no baths, pools, soaking in tubs for three days to avoid risk of infection. signs of infection ie: fever, rash, surgical site, swelling contact doctor or return to ER immediately. Heavy bleeding from surgical site apply firm direct pressure and return to ER. Do not attempt to drive self. low sodium/low fat diet Keep right groin dressing in place for 6 more days. May remove and discard on May 17 Discharge Disposition: HOME SELF-CARE
[2022-05-11] MEDS: traMADol 50 MG TAB PO PRN (09:43)
[2022-05-11 11:38] LABS: Glucose,Whole Blood 287 mg/dL (70-110)
[2022-05-11 12:57] VITALS: BP 130/79; PULSE 80; TEMP 98
--- NOTE | 2022-05-11 15:32 | P.CONS ---
History of Present Illness - Reason for Consult Consult date: 05/11/22 Medical management postop right femoral endarterectomy with patch angioplas - History of Present Illness This is a 61-year-old female admitted under vascular surgery services and is status post right femoral endarterectomy with patch angioplasty with Dr. Edwards. Patient follows with Dr. Lilli Cabrales in the outpatient setting with a past medical history of atrial fibrillation, asthma/COPD, diabetes, fibromyalgia, gastroesophageal reflux disease, hyperlipidemia, hypertension, hypothyroid and vascular issues and has been following with vascular surgery outpatient and elected to have this done. On exam this morning medications were reviewed and resumed and patient is continued on throughout the. Patient did have an indwelling Edwards catheter which was removed and is due to void. Patient has been cleared by vascular surgery services with outpatient follow-up in the clinic. Discussed with nursing staff the patient continues to retain recommend straight catheterization. Labs were reviewed as well and blood sugars elevated discussed with the patient about diabetes management and patient is insulin dependent. Patient does take oral diabetic agents as well. Encourage the patient continue monitoring Accu-Cheks before meals and at bedtime and follow-up with primary care provider this week. Recommend and encouraged type glycemic control. Vital signs reviewed and stable. Labs reviewed with a slightly elev ated creatinine of 1.24 recommend outpatient follow-up in the next few days to monitor the kidney functions. Review Of Systems: Constitutional: No fever, no chills, no night sweats. No weight change. No weakness, fatigue or lethargy. No daytime sleepiness. EENT: No headache. No blurred vision or double vision, no loss of vision. No loss of Hearing, no ringing in the ears, no dizziness. No nasal drainage or congestion. No epistaxis. No sore throat. Lungs: No shortness of breath, cough, no sputum production. No wheezing. Cardiovascular: No chest pain, no lower extremity edema. No palpitations. No paroxysmal nocturnal dyspnea. No orthopnea. No lightheadedness or dizziness. No syncopal episodes. Abdominal: No abdominal pain. No nausea, vomiting. No diarrhea. No constipation. No bloody or tarry stools.. No loss of appetite. Genitourinary: No dysuria, increased frequency, urgency. No urinary retention. Musculoskeletal: No myalgias. No muscle weakness, no gait dysfunction, no frequent falls. No back pain. No neck pain. Reports mild right leg pain Integumentary: No wounds, no lesions. No rash or pruritus. No unusual bruising. No change in hair or nails. Neurologic: No aphasia. No facial droop. No change in mentation. No head injury. No headache. No paralysis. No paresthesia. Psychiatric: No depression. No anxiety. No mood swings. Endocrine: No abnormal blood sugars. No weight change. No excessive sweating or thirst. No cold intolerance. PHYSICAL EXAMINATION: GENERAL: The patient is alert and oriented x4, Well developed, well nourished. HEENT: Pupils are round and equally reacting to light. EOMI. no scleral icterus. No conjunctival pallor. Normocephalic, atraumatic. No pharyngeal erythema. No thyromegaly. CARDIOVASCULAR: S1 and S2 muffled PULMONARY: diminished breath sounds bilaterally with no wheezing or rhonchi noted. ABDOMEN: soft. Nontender on exam. obese. non-distended, normoactive bowel sounds. No palpable organomegaly. MUSCULOSKELETAL: No joint swelling or deformity. EXTREMITIES: No cyanosis, clubbing, or pedal edema. NEUROLOGICAL: Gross neurological examination did not reveal any focal deficits. SKIN: No rashes. 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 Patient is postop day 1 and doing relatively well. Patient did have a Edwards catheter which was removed and due to void. Discussed with nursing staff and is retaining recommend straight catheterization. Home medications have been reviewed and resumed and recommend close outpatient follow-up with vascular surgery along with primary care provider next week. Continue with local wound care with restrictions per vascular surgery. Patient is medically stable and cleared for discharge. Discussed with patient about monitoring blood sugars closely and strongly encouraged type glycemic control with diet modifications and medication compliance. We will continue to follow along with vascular surgery during hospitalization. Thank you kindly for this consultation. The impression and plan of care has been dictated by Brielle Nolasco, nurse practitioner as directed. MD Robert I have performed a history and examination and MDM of this patient, discussed the same with the dictator, and agree with the dictator's assessment and plan as written ,documented as a scribe. Based on total visit time, I have performed more than 50% of the visit. Any additional findings or plans will be noted. Past Medical History Past Medical History: Atrial Fibrillation, Asthma, COPD, Diabetes Mellitus, Fibromyalgia, GERD/Reflux, Hyperlipidemia, Hypertension, Thyroid Disorder, Vascular Disorder Additional Past Medical History / Comment(s): Restless leg syndrom. COVID 02/03/22 History of Any Multi-Drug Resistant Organisms: None Reported Past Surgical History: Heart Catheterization With Stent, Pacemaker, Tubal Ligation Additional Past Surgical History / Comment(s): BI VENTRICULAR PACER. THYROIDECTOMY, CTR-RT WRIST, Cataract surgery R/L eye., one cardiac stent Past Anesthesia/Blood Transfusion Reactions: Postoperative Nausea & Vomiting (PONV) Date of Last Stent Placement:: unknown Type of Cardiac Device: Biventricular Pacemaker Device Placement Date:: 07/29/2020 Past Psychological History: No Psychological Hx Reported Smoking Status: Former smoker Past Alcohol Use History: Rare Additional Past Alcohol Use History / Comment(s): QUIT: 2005. SMOKED FOR: 30 YRS. PPD: .5 Past Drug Use History: None Reported Additional Drug Use History / Comment(s): denies currentl use - Past Family History Son(s) Additional Family Medical History / Comment(s): BLINDNESS FROM DIABETES. Father Family Medical History: Cancer Medications and Allergies Home Medications Medication Instructions Recorded Confirmed Type Aspirin [Adult Low Dose Aspirin EC] 81 mg PO DAILY 08/26/15 05/10/22 History glipiZIDE [Glucotrol] 10 mg PO BID 08/26/15 05/10/22 History Levothyroxine Sodium [Synthroid] 137 mcg PO QAM 09/23/17 05/07/22 History traMADol HCL [Ultram] 50 mg PO Q6H PRN 09/23/17 05/07/22 History Albuterol Nebulized [Ventolin 2.5 mg INHALATION Q6H PRN 07/28/20 05/10/22 History Nebulized] Furosemide [Lasix] 20 mg PO BID 07/28/20 05/10/22 History Insulin Aspart [NovoLOG] 0 units SQ TID-W/MEALS 07/28/20 05/07/22 History Insulin Detemir [Levemir Flextouch 50 units SQ HS 07/28/20 05/10/22 History Pen] Pantoprazole Sodium 40 mg PO QAM 07/28/20 05/07/22 History Pitavastatin Calcium [Livalo] 2 mg PO HS 07/28/20 05/07/22 History Potassium Chloride [Klor-Con 20] 20 meq PO DAILY 07/28/20 05/07/22 History Rivaroxaban [Xarelto] 20 mg PO DAILY 07/28/20 05/07/22 History Fluticasone/Umeclidin/Vilanter 1 puff INHALATION DAILY 01/18/22 05/07/22 History [Trelegy Ellipta 200-62.5-25] metFORMIN HCL 1,000 mg PO BID 01/18/22 05/10/22 History rOPINIRole HCL [Requip XL] 4 mg PO DAILY PRN 01/18/22 05/07/22 History predniSONE 20 mg PO DAILY PRN 05/07/22 05/10/22 History Allergies Allergy/AdvReac Type Severity Reaction Status Date / Time latex Allergy Rash/Hives Verified 05/10/22 06:22 Physical Exam Vitals: Vital Signs Temp Pulse Resp BP Pulse Ox 05/11/22 08:29 97.8 F 78 18 135/67 96 05/11/22 03:10 98.5 F 83 16 114/55 92 L 05/10/22 23:26 98.2 F 71 16 111/65 93 L 05/10/22 19:36 97.9 F 68 16 99/64 92 L 05/10/22 16:00 97.8 F 78 14 138/63 100 05/10/22 14:00 66 16 05/10/22 12:15 66 16 146/67 94 L 05/10/22 12:00 65 16 147/65 94 L 05/10/22 11:45 62 16 190/105 94 L 05/10/22 11:30 64 16 192/83 94 L 05/10/22 11:15 64 16 175/81 97 05/10/22 11:00 64 16 173/79 93 L 05/10/22 10:45 64 16 171/76 92 L 05/10/22 10:30 64 16 173/77 99 05/10/22 10:15 64 16 177/77 99 05/10/22 10:05 96.8 F L 67 16 171/74 100 Intake and Output 05/10/22 05/11/22 05/11/22 22:59 06:59 14:59 Intake Total 735 Output Total 1375 Balance -640 Intake: Intake, IV Titration 160 Amount Lactated Ringers 1,000 ml 60 @ 20 mls/hr IV .Q24H ANTONIA Rx#:[id number] ceFAZolin 2 gm In Sodium 100 Chloride 0.9% 50 ml @ 100 mls/hr IVPB Q8H ANTONIA Rx#: [id number] Oral 575 Output: Urine 1375 Uretheral (Edwards) 300 Other: Voiding Method Indwelling Catheter Indwelling Catheter Results CBC & Chem 7: 05/10/22 06:45 05/10/22 06:45 Labs: Abnormal Lab Results - Last 24 Hours (Table) 05/10/22 05/11/22 05/11/22 Range/Units 10:28 02:01 06:04 POC Glucose (mg/dL) 121 H 381 H 272 H (70-110) mg/dL
== END 2022-05-11 14:08 | disposition home or self-care (01) | DRG 254 ==
LOC: 2ORMAIN 05:33 → 3SCARD 12:16
PROVIDERS: ADMIT Surgery; ATTEND Surgery
PROC: 07BH0ZX Excision of Right Inguinal Lymphatic, Open Approach, Diagnostic (ICD-10-PCS; 2022-05-10)
PROC: 04CK0ZZ Extirpation of Matter from Right Femoral Artery, Open Approach (ICD-10-PCS; principal; 2022-05-10 07:30)
DX: E11.51 Type 2 diabetes mellitus with diabetic peripheral angiopathy without gangrene (principal); E11.65 Type 2 diabetes mellitus with hyperglycemia; G25.81 Restless legs syndrome; I10 Essential (primary) hypertension; J44.9 Chronic obstructive pulmonary disease, unspecified; E89.0 Postprocedural hypothyroidism; I70.211 Atherosclerosis of native arteries of extremities with intermittent claudication, right leg; I70.202 Unspecified atherosclerosis of native arteries of extremities, left leg; E78.5 Hyperlipidemia, unspecified; I48.0 Paroxysmal atrial fibrillation; M79.7 Fibromyalgia; K21.9 Gastro-esophageal reflux disease without esophagitis; Z86.16 Personal history of COVID-19; Z87.891 Personal history of nicotine dependence; Z95.5 Presence of coronary angioplasty implant and graft; Z95.0 Presence of cardiac pacemaker; Z79.890 Hormone replacement therapy; Z79.84 Long term (current) use of oral hypoglycemic drugs; Z79.4 Long term (current) use of insulin; Z79.82 Long term (current) use of aspirin; Z79.01 Long term (current) use of anticoagulants; Z91.040 Latex allergy status
CPT/HCPCS: 80053; 85025; 86850; 86900; 86901; 88304; 88305; 88311

== ENCOUNTER 2023-02-23 20:50 | Inpatient (IN) | payer MEDICARE, OTHER ==
[2023-02-23] MEDS ORDERED: ASPIRIN 81 MG PO STA (21:10)
[2023-02-23] MEDS ORDERED: NITROGLYCERIN SL TABS 0.4 MG TAB SUBLINGUAL PRN (21:11)
--- NOTE | 2023-02-23 21:20 | ED ---
Chest Pain HPI - General Chief Complaint: Chest Pain Stated Complaint: Chest Pain Time Seen by Provider: 02/23/23 21:03 Source: patient Mode of arrival: wheelchair Limitations: no limitations - History of Present Illness Initial Comments: This is a 62-year-old female who presents to the emergency department for chest pain. Patient has severe chest pain that started 1 hour ago. Pain is in a wheelchair chest which she describes as crushing and an elephant on her chest. There is radiation to the jaw and left arm with tingling. No precipitating, alleviating, or exacerbating factors No nausea or vomiting. No sweating. Patient is short of breath. She denies leg pain and swelling. No history of DVT or PE. Patient is on blood thinner states she has possibly missed doses. She has history of myocardial infarction with stenting. She does have a pacemaker with history of atrial fibrillation and sick sinus syndrome. - Related Data Home Medications Medication Instructions Recorded Confirmed glipiZIDE [Glucotrol] 10 mg PO BID 08/26/15 02/23/23 traMADol HCL [Ultram] 50 mg PO QID 09/23/17 02/23/23 Insulin Detemir [Levemir Flextouch 30 - 50 units SQ HS 07/28/20 02/23/23 Pen] Pantoprazole Sodium 40 mg PO DAILY 07/28/20 02/23/23 Potassium Chloride [Klor-Con 20] 20 meq PO DAILY 07/28/20 02/23/23 Rivaroxaban [Xarelto] 20 mg PO DAILY 07/28/20 02/23/23 Fluticasone/Umeclidin/Vilanter 1 puff INHALATION RT-DAILY 01/18/22 02/23/23 [Trelegy Ellipta 200-62.5-25] metFORMIN HCL 1,000 mg PO BID 01/18/22 02/23/23 Insulin Aspart [NovoLOG Flexpen] See Protocol SQ AC-TID 02/23/23 02/23/23 Levothyroxine Sodium [Synthroid] 137 mcg PO DAILY 02/23/23 02/23/23 Metoprolol Succinate (ER) [Toprol 100 mg PO BID 02/23/23 02/23/23 Xl] clonazePAM [KlonoPIN] 0.5 mg PO HS PRN 02/23/23 02/23/23 lisinopriL [Zestril] 10 mg PO HS 02/23/23 02/23/23 rOPINIRole HCL 10 mg PO HS 02/23/23 02/23/23 Allergies Allergy/AdvReac Type Severity Reaction Status Date / Time latex Allergy Rash/Hives Verified 02/23/23 22:08 Review of Systems ROS Statement: Those systems with pertinent positive or pertinent negative responses have been documented in the HPI. ROS Other: All systems not noted in ROS Statement are negative. Past Medical History Past Medical History: Atrial Fibrillation, Asthma, COPD, Diabetes Mellitus, Fibromyalgia, GERD/Reflux, Hyperlipidemia, Hypertension, Thyroid Disorder, Vascular Disorder Additional Past Medical History / Comment(s): Restless leg syndrom. COVID 02/03/22 History of Any Multi-Drug Resistant Organisms: None Reported Past Surgical History: Heart Catheterization With Stent, Pacemaker, Tubal Ligation Additional Past Surgical History / Comment(s): BI VENTRICULAR PACER. THYROIDECTOMY, CTR-RT WRIST, Cataract surgery R/L eye., one cardiac stent Past Anesthesia/Blood Transfusion Reactions: Postoperative Nausea & Vomiting (PONV) Date of Last Stent Placement:: unknown Type of Cardiac Device: Biventricular Pacemaker Device Placement Date:: 07/29/2020 Past Psychological History: No Psychological Hx Reported Smoking Status: Former smoker Past Alcohol Use History: Rare Past Drug Use History: None Reported - Past Family History Son(s) Additional Family Medical History / Comment(s): BLINDNESS FROM DIABETES. Father Family Medical History: Cancer General Exam Limitations: no limitations General appearance: alert, in distress (pain) Eye exam: Present: normal appearance, PERRL, EOMI. Absent: scleral icterus, conjunctival injection, periorbital swelling Respiratory exam: Present: normal lung sounds bilaterally. Absent: respiratory distress, wheezes, rales, rhonchi, stridor Cardiovascular Exam: Present: regular rate, normal rhythm, normal heart sounds. Absent: systolic murmur, diastolic murmur, rubs, gallop, clicks Neurological exam: Present: alert Skin exam: Present: warm, dry, intact, normal color. Absent: rash Course Vital Signs 02/23/23 02/23/23 02/23/23 20:51 21:37 22:00 Temperature 97.9 F Pulse Rate 94 84 Respiratory 18 20 Rate Blood Pressure 121/64 130/51 O2 Sat by Pulse 95 85 L 91 L Oximetry 02/23/23 02/24/23 02/24/23 23:00 00:00 01:00 Temperature Pulse Rate 73 75 71 Respiratory 18 18 20 Rate Blood Pressure 138/97 171/67 178/70 O2 Sat by Pulse 93 L Oximetry 02/24/23 02/24/23 02/24/23 02:00 03:00 04:00 Temperature Pulse Rate 68 67 69 Respiratory 14 17 18 Rate Blood Pressure 161/75 161/70 O2 Sat by Pulse 98 98 Oximetry 02/24/23 02/24/23 02/24/23 05:00 06:00 07:00 Temperature Pulse Rate 59 L 56 L 61 Respiratory 16 18 19 Rate Blood Pressure 147/72 O2 Sat by Pulse Oximetry 02/24/23 02/24/23 09:42 14:12 Temperature Pulse Rate 59 L 78 Respiratory 18 18 Rate Blood Pressure 147/72 147/72 O2 Sat by Pulse 98 98 Oximetry Chest Pain MDM - MDM EKG taken at 20:57, interpreted by myself Sinus rhythm with first-degree AV block, left axis deviation, right bundle branch block, no ST segment elevation Ventricular rate 93, WA interval 222, QRS duration 127, QTC 430 KG taken at 03:04. Interpreted by myself Sinus rhythm, nonspecific ST depression Ventricular rate at 69, WA interval 180, QRS duration 109, QTC 410 Was pt. sent in by a medical professional or institution ([facility], [employer] P[employer], urgent care, hospital, or fci...) When possible be specific @ -No Did you speak to anyone other than the patient for history (EMS, parent, family, police, friend...)? What history was obtained from this source @ -No Did you review nursing and triage notes (agree or disagree)? Why? @ -I reviewed and agree with nursing and triage notes Were old charts reviewed (outside hosp., previous admission, EMS record, old EKG, old radiological studies, urgent care reports/EKG's, fci records)? Report findings @ -No old charts were reviewed Differential Diagnosis (chest pain, altered mental status, abdominal pain women, abdominal pain men, vaginal bleeding, weakness, fever, dyspnea, syncope, headache, dizziness, GI bleed, back pain, seizure, CVA, palpatations, mental health)? @ -Differential Chest Pain: Stable Angina, Unstable Angina, STEMI, NSTEMI Aortic Dissection, Pneumothorax, Musculoskeletal, Esophageal Spasm GERD, Cholecystitis, Pancreatitis, Zoster, this is not meant to be an all-inclusive list. EKG interpreted by me (3pts min.). @ -As above X-rays interpreted by me (1pt min.). @ -[No acute cardiopulmonary process CT interpreted by me (1pt min.). @ -None done U/S interpreted by me (1pt. min.). @ -None done What testing was considered but not performed or refused? (CT, X-rays, U/S, labs)? Why? @ -None What meds were considered but not given or refused? Why? @ -None Did you discuss the management of the patient with other professionals (professionals i.e. , PA, [employer] E[employer]ECT[employer] PERSON, lab, RT, psych nurse, social services coordinator, industrial millwright, teacher, health officer, case managers)? Give summary @ -No Was smoking cessation discussed for >3mins.? @ -No Was critical care preformed (if so, how long)? @ -No Were there social determinants of health that impacted care today? How? (Homelessness, low income, unemployed, alcoholism, drug addiction, transportation, low edu. Level, literacy, decrease access to med. care, halfway, rehab)? @ -No Was there de-escalation of care discussed even if they declined (Discuss DNR or withdrawal of care, Hospice)? DNR status @ -No What co-morbidities impacted this encounter? (DM, HTN, Smoking, COPD, CAD, Cancer, CVA, ARF, Chemo, Hep., AIDS, mental health diagnosis, sleep apnea, morbid obesity)? @ -Atrial fibrillation, hyperlipidemia, hypertension, diabetes, pacemaker, PAD, CAD Was patient admitted / discharged? Hospital course, mention meds given and route, prescriptions, significant lab abnormalities, going to OR and other pertinent info. @ -62-year-old presenting for chest pain. Patient appears to be in significant pain.She is hemodynamically stable. EKG shows sinus rhythm with first-degree AV block, left axis deviation, right bundle branch block, no ST segment elevation. Troponin is within normal limits. Glucose is extremely elevated at 965. Patient is not acidotic. No ketosis. She is not in DKA. This appears to be hyperosmolar hyperglycemic state. There is acute kidney injury. Patient given aspirin and sublingual nitro with significant improvement of chest pain. Insulin protocol was initiated. IV fluids were given. Repeat troponin is 0.299. Heparin started. Patient has no chest pain. Patient to be admitted for an STEMI and hyperglycemia. Patient admitted in stable condition New problem with uncertain prognosis? @ -No Drug Therapy requiring intensive monitoring for toxicity (Heparin, Nitro, Insulin, Cardizem)? @ -No Were any procedures done? @ -No Diagnosis/symptom? @ -NSTEMI, HHS Acute, or Chronic, or Acute on Chronic? @ acute Uncomplicated (without systemic symptoms) or Complicated (systemic symptoms)? @ -uncomplicated Side effects of treatment? @ -No Exacerbation, Progression, or Severe Exacerbation? @ -No Poses a threat to life or bodily function? How? (Chest pain, [place], [place], pneumonia, PE, COPD, DKA, ARF, appy, cholecystitis, CVA, Diverticulitis, Homicidal, Suicidal, threat to staff... and all critical care pts) @ -Yes Dr. Corado is my attending Disposition Clinical Impression: NSTEMI (non-ST elevated myocardial infarction), Hyperosmolar hyperglycemic state (HHS) Disposition: ADMITTED IP TO THIS HOSP Condition: Serious
[2023-02-23 21:39] LABS: Anisocytosis Slight; Basophils % (A) 0 %; Eosinophils # (A) 0.3 k/uL (0-0.7); Eosinophils % (A) 3 %; HCT 37.4 % (34.0-46.0); HGB 10.4 gm/dL (11.4-16.0); Hypochromasia Marked; Lymphocytes # (A) 1.8 k/uL (1.0-4.8); Lymphocytes % (A) 22 %; MCH 25.2 pg (25.0-35.0); MCHC 27.8 g/dL (31.0-37.0); MCV 90.6 fL (80.0-100.0); Mean Platelet Volume 8.6; Monocytes # (A) 0.5 k/uL (0-1.0); Monocytes % (A) 6 %; Neutrophils # (A) 5.4 k/uL (1.3-7.7); Neutrophils % (A) 66 %; Platelet Count 304 k/uL (150-450); RBC 4.13 m/uL (3.80-5.40); RDW 16.3 % (11.5-15.5); WBC 8.2 k/uL (3.8-10.6)
[2023-02-23] MEDS ORDERED: ONDANSETRON 4 MG/2 ML VIAL IVP STA (22:01)
[2023-02-23 22:04] LABS: INR 0.9 (<1.2); Partial Thromboplastin Time 28.6 sec (22.0-30.0); Prothrombin Time 9.8 sec (9.0-12.0)
[2023-02-23 22:05] LABS: ALT 17 U/L (4-34); AST 20 U/L (14-36); African American GFR (CKD) 48 (>60 ml/min/1.73 sqM); Albumin 4.1 g/dL (3.5-5.0); Alkaline Phosphatase 146 U/L (38-126); Anion Gap 14 mmol/L; Blood Urea Nitrogen 40 mg/dL (7-17); Calcium 8.8 mg/dL (8.4-10.2); Carbon Dioxide 22 mmol/L (22-30); Chloride 91 mmol/L (98-107); Lipase 182 U/L (23-300); Magnesium 1.6 mg/dL (1.6-2.3); Non-African American GFR(CKD) 42 (>60 ml/min/1.73 sqM); Potassium 5.9 mmol/L (3.5-5.1); Sodium 127 mmol/L (137-145); Total Bilirubin 0.3 mg/dL (0.2-1.3); Total Protein 7.2 g/dL (6.3-8.2)
--- NOTE | 2023-02-23 22:15 | XR ---
EXAMINATION TYPE: XR chest 2V DATE OF EXAM: 02/23/2023 COMPARISON: NONE TECHNIQUE: PA and lateral views submitted. HISTORY: Chest pain FINDINGS: The lungs are clear and there is no pneumothorax, pleural effusion, or focal pneumonia. Heart size normal and no overt failure. Osseous structures demonstrate hypertrophic and degenerative changes of the spine. Cardiac device noted with atherosclerotic change of the aorta. IMPRESSION: 1. No acute process.
[2023-02-23 22:21] LABS: Glucose 965 mg/dL (74-99)
[2023-02-23] MEDS ORDERED: SODIUM CHLORIDE 0.9% 1,000 ML IV STA ×2 (22:28→22:30)
[2023-02-23] MEDS ORDERED: DEXTROSE 50% SYRINGE 50 ML IVP PRN ×2 (22:33)
[2023-02-23] MEDS ORDERED: INSULIN REGULAR BOLUS (FROM DRIP BAG) IV ONE (22:33)
[2023-02-23 23:02] LABS: Glucose,Whole Blood >600 mg/dL (70-110)
[2023-02-23 23:04] LABS: Appearance,Urine Clear (Clear); Bilirubin,Urine Negative (Negative); Blood,Urine Negative (Negative); Color,Urine Colorless; Glucose,Urine (UA) 4+ (Negative); Ketones,Urine Negative (Negative); Leukocyte Esterase,Urine Negative (Negative); Nitrite,Urine Negative (Negative); Protein,Urine Negative (Negative); Specific Gravity,Urine 1.022 (1.001-1.035); Urobilinogen,Urine <2.0 mg/dL (<2.0)
[2023-02-23] MEDS: INSULIN REGULAR 100 UNIT in SODIUM CHLORIDE 0.9% 100 ML IV SCH (23:27)
[2023-02-24 00:32] LABS: Glucose,Whole Blood >600 mg/dL (70-110)
[2023-02-24] MEDS ORDERED: FAMOTIDINE 20 MG/2 ML VIAL IV STA (00:47)
[2023-02-24] MEDS ORDERED: clonazePAM 0.5 MG TAB PO PRN (01:28)
[2023-02-24 01:58] LABS: Glucose,Whole Blood 481 mg/dL (70-110)
[2023-02-24 02:05] LABS: African American GFR (CKD) 51 (>60 ml/min/1.73 sqM); Anion Gap 12 mmol/L; Blood Urea Nitrogen 38 mg/dL (7-17); Carbon Dioxide 26 mmol/L (22-30); Chloride 98 mmol/L (98-107); Non-African American GFR(CKD) 45 (>60 ml/min/1.73 sqM); Phosphorus 4.5 mg/dL (2.5-4.5); Potassium 4.4 mmol/L (3.5-5.1); Sodium 136 mmol/L (137-145)
[2023-02-24] MEDS: METOPROLOL SUCCINATE (ER) 50 MG TAB.ER.24H PO SCH ×3 (02:12→21:18)
[2023-02-24] MEDS: traMADol 50 MG TAB PO SCH ×5 (02:13→21:17)
[2023-02-24] MEDS: glipiZIDE 10 MG TAB PO SCH ×2 (02:13→09:40)
[2023-02-24 02:51] LABS: Glucose,Whole Blood 341 mg/dL (70-110)
[2023-02-24 02:55] LABS: Glucose 583 mg/dL (74-99)
[2023-02-24] MEDS ORDERED: HEPARIN SODIUM 1,000 UN/ML (10ML VL) IV ONE (02:58)
[2023-02-24] MEDS ORDERED: HEPARIN SODIUM 1,000 UN/ML (10ML VL) IV PRN (02:58)
[2023-02-24] MEDS ORDERED: NALOXONE 0.4 MG/ML 1 ML VIAL IV PRN (03:14)
[2023-02-24 03:26] LABS: Glucose,Whole Blood 235 mg/dL (70-110)
[2023-02-24] MEDS: SODIUM CHLORIDE 0.9% 1,000 ML IV SCH ×2 (03:28→12:16)
[2023-02-24] MEDS: HEPARIN SOD,PORK IN 0.45% NACL 25,000 UNIT in 0.45% NACL 1 250ML.BAG IV SCH (03:33)
[2023-02-24 06:13] LABS: Glucose,Whole Blood 154 mg/dL (70-110)
[2023-02-24 09:32] LABS: ALT 16 U/L (4-34); AST 28 U/L (14-36); African American GFR (CKD) 71 (>60 ml/min/1.73 sqM); Albumin 3.8 g/dL (3.5-5.0); Alkaline Phosphatase 89 U/L (38-126); Anion Gap 8 mmol/L; Blood Urea Nitrogen 33 mg/dL (7-17); Calcium 8.7 mg/dL (8.4-10.2); Carbon Dioxide 25 mmol/L (22-30); Chloride 103 mmol/L (98-107); Glucose 160 mg/dL (74-99); Non-African American GFR(CKD) 62 (>60 ml/min/1.73 sqM); Phosphorus 4.6 mg/dL (2.5-4.5); Potassium 4.4 mmol/L (3.5-5.1); Sodium 136 mmol/L (137-145); Total Bilirubin 0.3 mg/dL (0.2-1.3); Total Protein 6.9 g/dL (6.3-8.2)
[2023-02-24 10:00] LABS: Anisocytosis Slight; Basophils % (A) 0 %; Eosinophils # (A) 0.3 k/uL (0-0.7); Eosinophils % (A) 4 %; HCT 31.6 % (34.0-46.0); HGB 9.5 gm/dL (11.4-16.0); Hypochromasia Marked; Lymphocytes # (A) 2.9 k/uL (1.0-4.8); Lymphocytes % (A) 35 %; MCH 25.5 pg (25.0-35.0); MCHC 30.2 g/dL (31.0-37.0); Mean Platelet Volume 8.8; Monocytes # (A) 0.7 k/uL (0-1.0); Monocytes % (A) 8 %; Neutrophils # (A) 4.1 k/uL (1.3-7.7); Neutrophils % (A) 50 %; Platelet Count 268 k/uL (150-450); RBC 3.74 m/uL (3.80-5.40); RDW 16.2 % (11.5-15.5); WBC 8.2 k/uL (3.8-10.6)
[2023-02-24 10:04] LABS: Partial Thromboplastin Time 49.9 sec (22.0-30.0); Prothrombin Time 10.2 sec (9.0-12.0)
[2023-02-24 10:07] LABS: MCV 84.4 fL (80.0-100.0)
[2023-02-24] MEDS: LEVOTHYROXINE 137 MCG TAB PO SCH (10:22)
[2023-02-24] MEDS: ATORVASTATIN 80 MG TAB PO SCH (10:22)
[2023-02-24] MEDS: NITROGLYCERIN OINT 1 INCH/GM PACKET TOPICAL SCH ×3 (10:22→23:32)
[2023-02-24] MEDS: PANTOPRAZOLE SODIUM 40 MG GRANULE PKT PO SCH (10:22)
[2023-02-24 10:54] LABS: Glucose,Whole Blood 166 mg/dL (70-110)
--- NOTE | 2023-02-24 11:34 | P.HPIM ---
History of Present Illness 62-year-old the female came in with complaints of chest pain pressure-like sensation nonradiating. Patient had history of coronary artery disease and medical physician in the past patient is found to have elevated troponins of 1.030 which is higher than her first troponin of 0.299 patient is on IV heparin. Patient was in acute renal failure which improved with IV fluids patient creatinine was 1.33 improved to 0.99 patient is on anti-correlation with Xarelto for atrial fibrillation, presently sinus rhythm with ST depressions in the anterolateral leads, no echo cardiac exam is available in the system. Patient also had highly elevated blood sugars which has come down at this time. REVIEW OF SYSTEMS: CONSTITUTIONAL: No fever, no malaise, no fatigue. HEENT: No recent visual problems or hearing problems. Denied any sore throat. CARDIOVASCULAR: No orthopnea, PND, no palpitations, no syncope. PULMONARY: No shortness of breath, no cough, no hemoptysis. GASTROINTESTINAL: No diarrhea, no nausea, no vomiting, no abdominal pain. NEUROLOGICAL: No headaches, no weakness, no numbness. HEMATOLOGICAL: Denies any bleeding or petechiae. GENITOURINARY: Denies any burning micturition, frequency, or urgency. MUSCULOSKELETAL/RHEUMATOLOGICAL: Denies any joint pain, swelling, or any muscle pain. ENDOCRINE: Denies any polyuria or polydipsia. The rest of the 14-point review of systems is negative. PHYSICAL EXAMINATION: GENERAL: The patient is alert and oriented x3, not in any acute distress. Well developed, well nourished. HEENT: Pupils are round and equally reacting to light. EOMI. No scleral icterus. No conjunctival pallor. Normocephalic, atraumatic. No pharyngeal erythema. No thyromegaly. CARDIOVASCULAR: S1 and S2 present. No murmurs, rubs, or gallops. PULMONARY: Chest is clear to auscultation, no wheezing or crackles. ABDOMEN: Soft, nontender, nondistended, normoactive bowel sounds. No palpable organomegaly. MUSCULOSKELETAL: No joint swelling or deformity. EXTREMITIES: No cyanosis, clubbing, or pedal edema. NEUROLOGICAL: Gross neurological examination did not reveal any focal deficits. SKIN: No rashes. Assessment and plan -Acute non-ST elevation microinfarction continue with IV heparin. Cardiology will evaluate the patient. -Acute renal failure: Prerenal azotemia from possibly myocardial infarction, improved with IV fluids -Hypoglycemia most probably due to noncompliance, improved with home regimen which will be continued except for metformin and patient was started on sliding scale insulin patient was on IV insulin which will be discontinued at this time, patient had a slight anion gap of 14 but the is not in diabetic acidosis this anion gap is probably secondary to lactic acidosis. And patient -Fibromyalgia -Hyperlipidemia -Hypertension next and-hepatitis -Progressive disease -COPD without any acute exacerbation DVT prophylaxis: On IV heparin Past Medical History Past Medical History: Atrial Fibrillation, Asthma, COPD, Diabetes Mellitus, Fibromyalgia, GERD/Reflux, Hyperlipidemia, Hypertension, Thyroid Disorder, Vascular Disorder Additional Past Medical History / Comment(s): Restless leg syndrom. COVID 02/03/22 History of Any Multi-Drug Resistant Organisms: None Reported Past Surgical History: Heart Catheterization With Stent, Pacemaker, Tubal Ligation Additional Past Surgical History / Comment(s): BI VENTRICULAR PACER. THYROIDECTOMY, CTR-RT WRIST, Cataract surgery R/L eye., one cardiac stent Past Anesthesia/Blood Transfusion Reactions: Postoperative Nausea & Vomiting (PONV) Date of Last Stent Placement:: unknown Type of Cardiac Device: Biventricular Pacemaker Device Placement Date:: 07/29/2020 Past Psychological History: No Psychological Hx Reported Smoking Status: Former smoker Past Alcohol Use History: Rare Past Drug Use History: None Reported - Past Family History Son(s) Additional Family Medical History / Comment(s): BLINDNESS FROM DIABETES. Father Family Medical History: Cancer Medications and Allergies Home Medications Medication Instructions Recorded Confirmed Type glipiZIDE [Glucotrol] 10 mg PO BID 08/26/15 02/23/23 History traMADol HCL [Ultram] 50 mg PO QID 09/23/17 02/23/23 History Insulin Detemir [Levemir Flextouch 30 - 50 units SQ HS 07/28/20 02/23/23 History Pen] Pantoprazole Sodium 40 mg PO DAILY 07/28/20 02/23/23 History Potassium Chloride [Klor-Con 20] 20 meq PO DAILY 07/28/20 02/23/23 History Rivaroxaban [Xarelto] 20 mg PO DAILY 07/28/20 02/23/23 History Fluticasone/Umeclidin/Vilanter 1 puff INHALATION RT-DAILY 01/18/22 02/23/23 History [Trelegy Ellipta 200-62.5-25] metFORMIN HCL 1,000 mg PO BID 01/18/22 02/23/23 History Insulin Aspart [NovoLOG Flexpen] See Protocol SQ AC-TID 02/23/23 02/23/23 History Levothyroxine Sodium [Synthroid] 137 mcg PO DAILY 02/23/23 02/23/23 History Metoprolol Succinate (ER) [Toprol 100 mg PO BID 02/23/23 02/23/23 History Xl] clonazePAM [KlonoPIN] 0.5 mg PO HS PRN 02/23/23 02/23/23 History lisinopriL [Zestril] 10 mg PO HS 02/23/23 02/23/23 History rOPINIRole HCL 10 mg PO HS 02/23/23 02/23/23 History Allergies Allergy/AdvReac Type Severity Reaction Status Date / Time latex Allergy Rash/Hives Verified 02/23/23 22:08 Physical Exam Vitals: Vital Signs Temp Pulse Resp BP Pulse Ox 02/24/23 09:42 59 L 18 147/72 98 02/24/23 07:00 61 19 147/72 02/24/23 06:00 56 L 18 02/24/23 05:00 59 L 16 02/24/23 04:00 69 18 02/24/23 03:00 67 17 161/70 98 02/24/23 02:00 68 14 161/75 98 02/24/23 01:00 71 20 178/70 02/24/23 00:00 75 18 171/67 02/23/23 23:00 73 18 138/97 93 L 02/23/23 22:00 84 20 91 L 02/23/23 21:37 130/51 85 L 02/23/23 20:51 97.9 F 94 18 121/64 95 Intake and Output 02/23/23 02/24/23 02/24/23 22:59 06:59 14:59 Intake Total 21.806 Balance 21.806 Intake: Intake, IV Titration 21.806 Amount Insulin Regular 100 unit 21.806 In Sodium Chloride 0.9% 100 ml @ 0.1 UNITS/KG/HR 7.788 mls/hr IV .[id number] [facility] Rx#:[id number] Other: Weight 77.111 kg Results CBC & Chem 7: 02/24/23 09:10 02/24/23 07:29 Labs: Abnormal Lab Results - Last 24 Hours (Table) 02/23/23 02/23/23 02/23/23 Range/Units 21:29 21:29 22:27 RBC (3.80-5.40) m/uL Hgb 10.4 L (11.4-16.0) gm/dL Hct (34.0-46.0) % MCHC 27.8 L (31.0-37.0) g/dL RDW 16.3 H (11.5-15.5) % APTT (22.0-30.0) sec Sodium 127 L (137-145) mmol/L Potassium 5.9 H (3.5-5.1) mmol/L Chloride 91 L (98-107) mmol/L BUN 40 H (7-17) mg/dL Creatinine 1.37 H (0.52-1.04) mg/dL Glucose 965 H* (74-99) mg/dL POC Glucose (mg/dL) (70-110) mg/dL Phosphorus (2.5-4.5) mg/dL Alkaline Phosphatase 146 H (38-126) U/L Troponin I (0.000-0.034) ng/mL Urine Glucose (UA) 4+ H (Negative) 02/23/23 02/24/23 02/24/23 Range/Units 22:59 00:30 00:34 RBC (3.80-5.40) m/uL Hgb (11.4-16.0) gm/dL Hct (34.0-46.0) % MCHC (31.0-37.0) g/dL RDW (11.5-15.5) % APTT (22.0-30.0) sec Sodium (137-145) mmol/L Potassium (3.5-5.1) mmol/L Chloride (98-107) mmol/L BUN (7-17) mg/dL Creatinine (0.52-1.04) mg/dL Glucose (74-99) mg/dL POC Glucose (mg/dL) >600 H >600 H (70-110) mg/dL Phosphorus (2.5-4.5) mg/dL Alkaline Phosphatase (38-126) U/L Troponin I 0.299 H* (0.000-0.034) ng/mL Urine Glucose (UA) (Negative) 02/24/23 02/24/23 02/24/23 Range/Units 00:35 01:56 02:50 RBC (3.80-5.40) m/uL Hgb (11.4-16.0) gm/dL Hct (34.0-46.0) % MCHC (31.0-37.0) g/dL RDW (11.5-15.5) % APTT (22.0-30.0) sec Sodium 136 L (137-145) mmol/L Potassium (3.5-5.1) mmol/L Chloride (98-107) mmol/L BUN 38 H (7-17) mg/dL Creatinine 1.30 H (0.52-1.04) mg/dL Glucose 583 H* (74-99) mg/dL POC Glucose (mg/dL) 481 H 341 H (70-110) mg/dL Phosphorus (2.5-4.5) mg/dL Alkaline Phosphatase (38-126) U/L Troponin I (0.000-0.034) ng/mL Urine Glucose (UA) (Negative) 02/24/23 02/24/23 02/24/23 Range/Units 03:24 06:11 07:29 RBC (3.80-5.40) m/uL Hgb (11.4-16.0) gm/dL Hct (34.0-46.0) % MCHC (31.0-37.0) g/dL RDW (11.5-15.5) % APTT (22.0-30.0) sec Sodium 136 L (137-145) mmol/L Potassium (3.5-5.1) mmol/L Chloride (98-107) mmol/L BUN 33 H (7-17) mg/dL Creatinine (0.52-1.04) mg/dL Glucose 160 H (74-99) mg/dL POC Glucose (mg/dL) 235 H 154 H (70-110) mg/dL Phosphorus 4.6 H (2.5-4.5) mg/dL Alkaline Phosphatase (38-126) U/L Troponin I (0.000-0.034) ng/mL Urine Glucose (UA) (Negative) 02/24/23 02/24/23 02/24/23 Range/Units 09:10 09:10 09:10 RBC 3.74 L (3.80-5.40) m/uL Hgb 9.5 L (11.4-16.0) gm/dL Hct 31.6 L (34.0-46.0) % MCHC 30.2 L (31.0-37.0) g/dL RDW 16.2 H (11.5-15.5) % APTT 49.9 H (22.0-30.0) sec Sodium (137-145) mmol/L Potassium (3.5-5.1) mmol/L Chloride (98-107) mmol/L BUN (7-17) mg/dL Creatinine (0.52-1.04) mg/dL Glucose (74-99) mg/dL POC Glucose (mg/dL) (70-110) mg/dL Phosphorus (2.5-4.5) mg/dL Alkaline Phosphatase (38-126) U/L Troponin I 1.030 H* (0.000-0.034) ng/mL Urine Glucose (UA) (Negative) 02/24/23 Range/Units 10:52 RBC (3.80-5.40) m/uL Hgb (11.4-16.0) gm/dL Hct (34.0-46.0) % MCHC (31.0-37.0) g/dL RDW (11.5-15.5) % APTT (22.0-30.0) sec Sodium (137-145) mmol/L Potassium (3.5-5.1) mmol/L Chloride (98-107) mmol/L BUN (7-17) mg/dL Creatinine (0.52-1.04) mg/dL Glucose (74-99) mg/dL POC Glucose (mg/dL) 166 H (70-110) mg/dL Phosphorus (2.5-4.5) mg/dL Alkaline Phosphatase (38-126) U/L Troponin I (0.000-0.034) ng/mL Urine Glucose (UA) (Negative)
[2023-02-24] MEDS: INSULIN REGULAR 100 UNIT in SODIUM CHLORIDE 0.9% 100 ML IV SCH (12:15)
[2023-02-24] MEDS ORDERED: VERAPAMIL 2.5 MG/ML 2 ML AMP ONE (13:56)
[2023-02-24] MEDS ORDERED: LIDOCAINE 1% INJ 10MG/ML (20 ML MDV) ONE (13:56)
[2023-02-24 14:03] LABS: Glucose,Whole Blood 150 mg/dL (70-110)
[2023-02-24] MEDS ORDERED: IV FLUID CONTINUATION 500 ML IV ONE (14:20)
--- NOTE | 2023-02-24 14:20 | P.CRDCN ---
History of Present Illness Consult date: 02/24/23 History of present illness: Patient is a 62-year-old female who follows in the office with Dr. Mendez. She presented to the emergency room with new onset of chest pressure. She states she was running errands and had stopped to get [employer] for dinner. Approximately 30 minutes to an hour after she ate, she developed a new onset of chest heaviness, which made it difficult to breathe. She states she had similar symptoms approximately 2 weeks prior, however they resolved on its own. DIAGNOSTICS: EKG shows sinus mechanism with nonspecific ST depression (lead to an leads V4 through V6) Chest x-ray shows no acute cardiopulmonary process Lab data: WBC 8.2, hemoglobin 9.5, hematocrit 31.6, platelet 268, sodium 136, potassium 4.4, BUN 33, creatinine 0.9 and, AST 28, ALT 16, troponin less than 0.012, 0.29, 1.03 REVIEW OF SYSTEMS: No fever or chills. No cough or expectoration. No diaphoresis. Patient denies headache, dizziness, blurred vision, double vision. Patient denies any stomach discomfort. No nausea, vomiting. No hematochezia. No hematemesis. Denies any black stools or blood in his stools. Denies dysuria or hematuria. No muscle weakness or numbness. Positive for intermittent chest pressure. PHYSICAL EXAMINATION: This is a 62-year-old female in no apparent distress at the time of my examination. HEENT: Head is atraumatic, normocephalic. Mucous membranes of the mouth are moist. Neck is supple. There is no jugular venous distention. No carotid bruit is heard. CHEST EXAMINATION: Lungs are coarse to auscultation. No chest wall tenderness is noted on palpation or with deep breathing. Rhonchi throughout. HEART EXAMINATION: Heart regular rate and rhythm. S1, S2 heard. Systolic ejection murmur noted. No gallops or rubs. ABDOMEN: Soft, nontender. Bowel sounds are heard. No organomegaly noted. EXTREMITIES: No evidence of peripheral edema and no calf tenderness noted. NEUROLOGIC EXAMINATION: Patient is awake, alert and oriented x3. FINAL ASSESSMENT AND PLAN: Non-ST elevated myocardial infarction History of coronary artery disease, with prior stenting Diabetes mellitus, likely uncontrolled Hyperlipidemia History of COPD History of atrial fibrillation History of pacemaker PLAN: Continue heparin drip Check lipid profile and hemoglobin A1c Echocardiogram and Doppler study to be done Proceed with coronary angiogram I am dictating on behalf of Dr Juan Miguel Goyal's history/physical and assessment/plan. Past Medical History Past Medical History: Atrial Fibrillation, Asthma, COPD, Diabetes Mellitus, Fibromyalgia, GERD/Reflux, Hyperlipidemia, Hypertension, Thyroid Disorder, Vascular Disorder Additional Past Medical History / Comment(s): Restless leg syndrom. COVID 02/03/22 History of Any Multi-Drug Resistant Organisms: None Reported Past Surgical History: Heart Catheterization With Stent, Pacemaker, Tubal Ligati on Additional Past Surgical History / Comment(s): BI VENTRICULAR PACER. TH YROIDECTOMY, CTR-RT WRIST, Cataract surgery R/L eye., one cardiac stent Past Anesthesia/Blood Transfusion Reactions: Postoperative Nausea & Vomiting (PONV) Date of Last Stent Placement:: unknown Type of Cardiac Device: Biventricular Pacemaker Device Placement Date:: 07/29/2020 Past Psychological History: No Psychological Hx Reported Smoking Status: Former smoker Past Alcohol Use History: Rare Past Drug Use History: None Reported - Past Family History Son(s) Additional Family Medical History / Comment(s): BLINDNESS FROM DIABETES. Father Family Medical History: Cancer Medications and Allergies Home Medications Medication Instructions Recorded Confirmed Type glipiZIDE [Glucotrol] 10 mg PO BID 08/26/15 02/23/23 History traMADol HCL [Ultram] 50 mg PO QID 09/23/17 02/23/23 History Insulin Detemir [Levemir Flextouch 30 - 50 units SQ HS 07/28/20 02/23/23 History Pen] Pantoprazole Sodium 40 mg PO DAILY 07/28/20 02/23/23 History Potassium Chloride [Klor-Con 20] 20 meq PO DAILY 07/28/20 02/23/23 History Rivaroxaban [Xarelto] 20 mg PO DAILY 07/28/20 02/23/23 History Fluticasone/Umeclidin/Vilanter 1 puff INHALATION RT-DAILY 01/18/22 02/23/23 History [Trelegy Ellipta 200-62.5-25] metFORMIN HCL 1,000 mg PO BID 01/18/22 02/23/23 History Insulin Aspart [NovoLOG Flexpen] See Protocol SQ AC-TID 02/23/23 02/23/23 History Levothyroxine Sodium [Synthroid] 137 mcg PO DAILY 02/23/23 02/23/23 History Metoprolol Succinate (ER) [Toprol 100 mg PO BID 02/23/23 02/23/23 History Xl] clonazePAM [KlonoPIN] 0.5 mg PO HS PRN 02/23/23 02/23/23 History lisinopriL [Zestril] 10 mg PO HS 02/23/23 02/23/23 History rOPINIRole HCL 10 mg PO HS 02/23/23 02/23/23 History Allergies Allergy/AdvReac Type Severity Reaction Status Date / Time latex Allergy Rash/Hives Verified 02/23/23 22:08 Physical Exam Vitals: Vital Signs Temp Pulse Resp BP Pulse Ox 02/24/23 09:42 59 L 18 147/72 98 02/24/23 07:00 61 19 147/72 02/24/23 06:00 56 L 18 02/24/23 05:00 59 L 16 02/24/23 04:00 69 18 02/24/23 03:00 67 17 161/70 98 02/24/23 02:00 68 14 161/75 98 02/24/23 01:00 71 20 178/70 02/24/23 00:00 75 18 171/67 02/23/23 23:00 73 18 138/97 93 L 02/23/23 22:00 84 20 91 L 02/23/23 21:37 130/51 85 L 02/23/23 20:51 97.9 F 94 18 121/64 95 Intake and Output 02/23/23 02/24/23 02/24/23 22:59 06:59 14:59 Intake Total 21.806 Balance 21.806 Intake: Intake, IV Titration 21.806 Amount Insulin Regular 100 unit 21.806 In Sodium Chloride 0.9% 100 ml @ 0.1 UNITS/KG/HR 7.788 mls/hr IV .[id number] [facility] Rx#:[id number] Other: Weight 77.111 kg Results 02/24/23 09:10 02/24/23 07:29 Cardiac Enzymes 02/23/23 02/23/23 02/24/23 Range/Units 21:29 21:29 00:34 AST 20 (14-36) U/L Troponin I <0.012 0.299 H* (0.000-0.034) ng/mL 02/24/23 02/24/23 Range/Units 07:29 09:10 AST 28 (14-36) U/L Troponin I 1.030 H* (0.000-0.034) ng/mL Coagulation 02/23/23 02/24/23 Range/Units 21:29 09:10 PT 9.8 10.2 (9.0-12.0) sec APTT 28.6 49.9 H (22.0-30.0) sec CBC 02/23/23 02/24/23 Range/Units 21:29 09:10 WBC 8.2 8.2 (3.8-10.6) k/uL RBC 4.13 3.74 L (3.80-5.40) m/uL Hgb 10.4 L 9.5 L (11.4-16.0) gm/dL Hct 37.4 31.6 L (34.0-46.0) % Plt Count 304 268 (150-450) k/uL Comprehensive Metabolic Panel 02/23/23 02/24/23 02/24/23 Range/Units 21:29 00:35 07:29 Sodium 127 L 136 L 136 L (137-145) mmol/L Potassium 5.9 H 4.4 4.4 (3.5-5.1) mmol/L Chloride 91 L 98 103 (98-107) mmol/L Carbon Dioxide 22 26 25 (22-30) mmol/L BUN 40 H 38 H 33 H (7-17) mg/dL Creatinine 1.37 H 1.30 H 0.99 (0.52-1.04) mg/dL Glucose 965 H* 583 H* 160 H (74-99) mg/dL Calcium 8.8 8.7 (8.4-10.2) mg/dL AST 20 28 (14-36) U/L ALT 17 16 (4-34) U/L Alkaline Phosphatase 146 H 89 (38-126) U/L Total Protein 7.2 6.9 (6.3-8.2) g/dL Albumin 4.1 3.8 (3.5-5.0) g/dL Current Medications Generic Name Dose Route Start Last Admin Trade Name Freq PRN Reason Stop Dose Admin Aspirin 81 mg 02/25/23 09:00 Aspirin 81 Mg PO DAILY [facility] Atorvastatin Calcium 80 mg 02/24/23 09:45 02/24/23 10:22 Atorvastatin 80 Mg Tab PO 80 mg DAILY ANTONIA Administration Clonazepam 0.5 mg 02/24/23 01:28 02/24/23 02:14 Clonazepam 0.5 Mg Tab PO 0.5 mg HS PRN Administration Insomnia Dextrose/Water 25 ml 02/23/23 22:33 Dextrose 50% Syringe 50 Ml IVP PER PROTOCOL PRN Hypoglycemia Protocol Dextrose/Water 50 ml 02/23/23 22:33 Dextrose 50% Syringe 50 Ml IVP PER PROTOCOL PRN Hypoglycemia Protocol Heparin Sodium (Porcine) 0 unit 02/24/23 02:58 Heparin Sodium 1,000 Un/Ml (10ml Vl) IV PER PROTOCOL PRN Low PTT Protocol Heparin Sodium/Sodium Chloride 250 mls @ 9.253 mls/hr 02/24/23 03:00 02/24/23 03:33 25,000 unit/ Sodium Chloride IV 12 units/kg/hr .Q24H ANTONIA 9.253 mls/hr Administration Protocol 12 UNITS/KG/HR Sodium Chloride 1,000 mls @ 75 mls/hr 02/24/23 03:15 02/24/23 12:16 Saline 0.9% IV 75 mls/hr .[id number] ANTONIA Administration Insulin Aspart 0 unit 02/24/23 17:30 Insulin Aspart (Novolog) 100 Unit/Ml Vial SQ ACHS [facility] Protocol Insulin Detemir 40 unit 02/24/23 21:00 Insulin Detemir (Levemir) 100 Unit/Ml Syr SQ HS [facility] Levothyroxine Sodium 137 mcg 02/24/23 07:00 02/24/23 10:22 Levothyroxine 137 Mcg Tab PO 137 mcg DAILY@0700 ANTONIA Administration Lisinopril 10 mg 02/24/23 21:00 Lisinopril 10 Mg Tab PO HS [facility] Metoprolol Succinate 100 mg 02/24/23 01:30 02/24/23 09:41 Metoprolol Succinate (Er) 50 Mg Tab.Er.24h PO 100 mg BID ANTONIA Administration Naloxone HCl 0.2 mg 02/24/23 03:14 Naloxone 0.4 Mg/Ml 1 Ml Vial IV Q2M PRN Opioid Reversal Nitroglycerin 0.4 mg 02/23/23 21:11 Nitroglycerin Sl Tabs 0.4 Mg Tab SUBLINGUAL Q5M PRN Chest Pain Nitroglycerin 1 inch 02/24/23 09:45 02/24/23 10:22 Nitroglycerin Oint 1 Inch/Gm Packet TOPICAL 1 inch Q8HR [facility] Administration Pantoprazole Sodium 40 mg 02/24/23 09:00 02/24/23 10:22 Pantoprazole Sodium 40 Mg Granule Pkt PO 40 mg DAILY [facility] Administration Tramadol HCl 50 mg 02/24/23 01:30 02/24/23 09:40 Tramadol 50 Mg Tab PO 50 mg QID [facility] Administration Intake and Output 02/23/23 02/24/23 02/24/23 22:59 06:59 14:59 Intake Total 21.806 Balance 21.806 Intake: Intake, IV Titration 21.806 Amount Insulin Regular 100 unit 21.806 In Sodium Chloride 0.9% 100 ml @ 0.1 UNITS/KG/HR 7.788 mls/hr IV .[id number] [facility] Rx#:[id number] Other: Weight 77.111 kg 02/24/23 09:10 02/24/23 07:29
[2023-02-24] MEDS ORDERED: HEPARIN SODIUM 1,000 UN/ML (10ML VL) ONE (14:28)
[2023-02-24] MEDS ORDERED: LIDOCAINE 1% INJ 10MG/ML (20 ML MDV) SQ ONE (14:33)
[2023-02-24] MEDS ORDERED: MIDAZOLAM 2 MG/2 ML VIAL IVP ONE (14:33)
[2023-02-24] MEDS ORDERED: VERAPAMIL SYRINGE (5 MG/10 ML) INTRAARTER ONE (14:36)
[2023-02-24] MEDS ORDERED: CLOPIDOGREL 75 MG TAB ONE (14:48)
[2023-02-24] MEDS: HEPARIN SODIUM 1,000 UN/ML (10ML VL) IV ONE ×2 (14:51→15:19)
[2023-02-24] MEDS ORDERED: CLOPIDOGREL 75 MG TAB PO ONE (14:53)
[2023-02-24] MEDS ORDERED: fentaNYL (PF) 50 MCG/ML 2 ML AMP ONE (14:56)
[2023-02-24] MEDS ORDERED: fentaNYL (PF) 50 MCG/ML 2 ML AMP IVP ONE (14:57)
[2023-02-24] MEDS ORDERED: IOPAMIDOL-370 100ML BTL INJ ONE (15:12)
[2023-02-24] MEDS ORDERED: ZOLPIDEM 5 MG TAB PO PRN (15:17)
[2023-02-24] MEDS ORDERED: NITROGLYCERIN SL TABS 0.4 MG TAB SUBLINGUAL PRN (15:17)
[2023-02-24] MEDS ORDERED: ATROPINE SULFATE 0.1 MG/ML 10ML SYRINGE IV PRN (15:17)
[2023-02-24] MEDS ORDERED: RX INFO: IV CONTRAST WAS GIVEN 1 EACH MISC MISCELLANE PRN (15:17)
[2023-02-24] MEDS ORDERED: MAG HYDROX/AL HYDROX/SIMETH 30 ML CUP PO PRN (15:17)
--- NOTE | 2023-02-24 15:27 | P.PCN ---
Date of Procedure: 02/24/23 Operative Findings: CARDIAC CATHETERIZATION AND PERCUTANEOUS CORONARY INTERVENTION PERFORMING PHYSICIAN: Anibal Gruber MD, [facility] PROCEDURE PERFORMED: 1. Selective right and left coronary angiogram 2. Left heart catheterization 3. Successful stenting of mid LCx/OM 1 using 3.5 x 15 mm Xience SARAH with an excellent angiographic results 4. Adjunctive use of intravascular ultrasound and ultrasound guidance of the right radial artery INDICATION: Chest discomfort concerning for unstable angina in this 62-year-old female patient who was known to have CAD with a prior stenting of the LAD. Because she continues to have ongoing chest discomfort heart catheterization was advised COMPLICATION: None APPROACH: Right radial artery LEVEL OF SEDATION: Moderate with the sedation time off 40 minutes PROCEDURE DESCRIPTION: After obtaining an informed consent the patient was brought to the cardiac labor gang supervisor. The right radial artery was cannulated using micropuncture technique under ultrasound guidance a micropuncture wire passed easily then I placed a 6-Faroese sheath. I gave the patient 2 mg of verapamil intra-arterial and 60,000 use of heparin and intravenous with continuous ACT monitoring. Selective right and left coronary angiogram performed with a JR4 and JL 3.5 catheters. Left heart catheterization was performed using the JR4 catheter which across aortic valve then I did a pullback across the valve. After that I did intervene on the LCx. The procedure was completed was no complication SELECTIVE CORONARY ANGIOGRAM: The right coronary artery: Large caliber vessel and a dominant vessel. The RCA has mild to moderate nonobstructive coronary artery disease. Distally bifurcates into PDA and PLV branches both appeared to be angiographically normal Left main: Is angiographically normal. Bifurcates into one LCx and LAD The left circumflex: Large-caliber vessel nondominant vessel. The proximal LCx has mild disease only. The mid LCx appeared to be angiographically normal and gives rises into an OM1 which has an ostial lesion appears to be in the range of 99.9%. The left circumflex after that continues in the AV groove as a small to medium caliber vessel. The left anterior descending artery: Large caliber vessel. The proximal LAD appeared to be angiographically normal. The mid LAD is a stented and the stent is patent. Just distal to the stented segment there is intermediate lesion appears to be in the range of 50-60%. The LAD distally appears to be angiographically normal HEMODYNAMICS: The LVEDP was 20 mmHg was no significant gradient across aortic valve PCI OF THE LCX: Anticoagulation was initiated using heparin as described above. Unfortunately we did not have any extra backup guidance available at the time of the intervention. I ended using JL 3.5 guiding catheter. The LCx was wired using a run through wire. Intravascular ultrasound was performed and showed a heavily calcified OM1 with a diameter around 3.5 mm. Balloon angioplasty was performed using 3.0 mm balloon which was inflated under 12 noemi to open the lesion out. Subsequently attempting advancing 3.5 mm x 15 mm stent was successfully because the stent will not make the turn from the left main to the left circumflex coronary artery. At that point I decided to use a sofiya wire. I wire the left circumflex into OM1 using a whisper wire. Attempting advancing the stent over the whisper wire or run-through wire again was also unsuccessful. I ended using guide liner. With that I was able to advance the stent to the OM1 of the left circumflex where the stent was positioned under fluoroscopy guidance and deployed under fluoroscopy guidance. The stent was deployed under 12 noemi for 20 seconds. Final angiogram showed good angiographic results was KETAN-3 flow in both OM1 as well as left circumflex coronary artery there was a patient on the left circumflex but the left circumflex is an AV groove and distally feeds very small amount of the myocardium. I decided to treat that medically. The procedure was completed was no complication CONCLUSION: 1. Critical disease involving the ostial of OM1 of the LCx. I did perform successful stenting of OM1 2. Intermediate disease involving the mid LAD distal to a stented segment. 3. Elevated left-sided filling pressure POSTPROCEDURE MANAGEMENT: 1. Dual antiplatelet therapy using aspirin and Plavix for 12 month 2. Aggressive cholesterol control 3. Follow-up with the patient
[2023-02-24] MEDS ORDERED: SODIUM CHLORIDE 0.9% 1,000 ML in EMPTY BAG 1 BAG IV SCH (15:30)
[2023-02-24] MEDS ORDERED: ONDANSETRON 4 MG/2 ML VIAL IVP PRN (15:36)
[2023-02-24 16:23] LABS: Glucose,Whole Blood 146 mg/dL (70-110)
[2023-02-24] MEDS: INSULIN ASPART (NovoLOG) 100 UNIT/ML VIAL SQ SCH ×2 (16:29→21:19)
[2023-02-24 20:59] LABS: Glucose,Whole Blood 198 mg/dL (70-110)
[2023-02-24] MEDS ORDERED: lisinopriL 10 MG TAB PO SCH (21:00)
[2023-02-24] MEDS: INSULIN DETEMIR (LEVEMIR) 100 UNIT/ML SYR SQ SCH (21:19)
[2023-02-25] MEDS: HEPARIN SOD,PORK IN 0.45% NACL 25,000 UNIT in 0.45% NACL 1 250ML.BAG IV SCH (04:29)
[2023-02-25 06:17] LABS: Glucose,Whole Blood 87 mg/dL (70-110)
[2023-02-25] MEDS: INSULIN ASPART (NovoLOG) 100 UNIT/ML VIAL SQ SCH ×4 (06:19→20:52)
[2023-02-25] MEDS: LEVOTHYROXINE 137 MCG TAB PO SCH (06:21)
[2023-02-25 08:03] LABS: Anisocytosis Slight; Basophils % (A) 0 %; Eosinophils # (A) 0.5 k/uL (0-0.7); Eosinophils % (A) 6 %; HCT 33.3 % (34.0-46.0); Hypochromasia Marked; Lymphocytes # (A) 1.7 k/uL (1.0-4.8); Lymphocytes % (A) 21 %; MCH 25.3 pg (25.0-35.0); MCHC 30.2 g/dL (31.0-37.0); Monocytes # (A) 0.5 k/uL (0-1.0); Monocytes % (A) 6 %; Neutrophils # (A) 5.5 k/uL (1.3-7.7); Neutrophils % (A) 65 %; Platelet Count 320 k/uL (150-450); RBC 3.96 m/uL (3.80-5.40); RDW 16.6 % (11.5-15.5); WBC 8.4 k/uL (3.8-10.6)
[2023-02-25 08:05] LABS: INR 0.9 (<1.2)
[2023-02-25 08:13] LABS: African American GFR (CKD) >90 (>60 ml/min/1.73 sqM); Anion Gap 5 mmol/L; Blood Urea Nitrogen 12 mg/dL (7-17); Calcium 9.3 mg/dL (8.4-10.2); Carbon Dioxide 29 mmol/L (22-30); Chloride 106 mmol/L (98-107); Glucose 80 mg/dL (74-99); Magnesium 1.7 mg/dL (1.6-2.3); Non-African American GFR(CKD) >90 (>60 ml/min/1.73 sqM); Sodium 140 mmol/L (137-145)
[2023-02-25] MEDS: SODIUM CHLORIDE 0.9% 1,000 ML IV SCH ×2 (09:15→15:53)
[2023-02-25] MEDS: ASPIRIN 81 MG PO SCH (09:15)
[2023-02-25] MEDS: traMADol 50 MG TAB PO SCH ×4 (09:15→21:00)
[2023-02-25] MEDS: METOPROLOL SUCCINATE (ER) 50 MG TAB.ER.24H PO SCH ×2 (09:16→21:00)
[2023-02-25] MEDS: ATORVASTATIN 80 MG TAB PO SCH (09:16)
[2023-02-25] MEDS: CLOPIDOGREL 75 MG TAB PO SCH (09:17)
[2023-02-25] MEDS: LOSARTAN-HCTZ 50-12.5 MG 1 EACH TAB PO SCH (09:17)
[2023-02-25] MEDS: PANTOPRAZOLE SODIUM 40 MG GRANULE PKT PO SCH (09:31)
[2023-02-25] MEDS ORDERED: Magnesium Replacement Protocol 1 EACH MISC MISCELLANE PRN (09:48)
[2023-02-25] MEDS ORDERED: MAGNESIUM SULFATE-D5W PMX 1 GM in DEXTROSE/WATER 1 100ML.BAG IVPB ONE (10:00)
[2023-02-25] MEDS: NITROGLYCERIN OINT 1 INCH/GM PACKET TOPICAL SCH (10:16)
--- NOTE | 2023-02-25 11:04 | P.PN ---
Subjective HISTORY OF PRESENT ILLNESS: This is a 62-year-old female who follows in the office with Dr. Mendez. Patient presented to the hospital with a chief complaint of chest pain. Patient was found to have a non-STEMI. She underwent cardiac catheterization yesterday with Dr. Gruber. She was found to have critical disease involving the ostial OM1 of the circumflex. She underwent stenting of OM1. Patient was found to have inter mediate disease involving the mid LAD distal to a stented segment. Patient examined this morning at the bedside. Patient denies any further episodes of chest pain or pressure. She denies shortness of breath. Patient's blood pressure is elevated today with a systolic in the 170s. PHYSICAL EXAM: VITAL SIGNS: Reviewed. GENERAL: Well-developed in no acute distress. NECK: Supple. No JVD or thyromegaly LUNGS: Respirations even and unlabored. Lungs essentially clear to auscultation bilaterally. HEART: Regular rate and rhythm. S1 and S2 heard. Systolic murmur noted EXTREMITIES: Normal range of motion. No clubbing or cyanosis. Peripheral pulses intact. No lower extremity edema ASSESSMENT: Non-STEMI, status post cardiac catheterization with stenting of the OM1 History of coronary artery disease with previous stenting Hyperlipidemia Hypertension Diabetes History of COPD History of paroxysmal atrial fibrillation History of pacemaker implantation PLAN: 2-D echo has been ordered. Await results. Continue aspirin and Plavix. Resume Xarelto. Patient will continue on triple therapy at this time Discontinue lisinopril. Begin losartan-hydrochlorothiazide. Monitor blood pressure Further recommendations pending patient course Patient to follow up post discharge with Dr. Mendez Nurse practitioner note has been reviewed by physician. Signing provider agrees with the documented findings, assessment, and plan of care. Objective - Vital Signs Vital signs: Vital Signs Temp 97.8 F 02/25/23 09:15 Pulse 62 02/25/23 09:15 Resp 16 02/25/23 09:15 BP 167/68 02/25/23 09:15 Pulse Ox 94 L 02/25/23 03:49 FiO2 Intake & Output 02/24/23 02/25/23 02/25/23 18:59 06:59 18:59 Intake Total 430 700 Balance 430 700 Weight 77.111 kg Intake: IV 250 Oral 180 700 Other: Voiding Method Toilet Toilet # Voids 1 2 - Labs CBC & Chem 7: 02/25/23 07:43 02/25/23 07:43 Labs: Abnormal Lab Results - Last 24 Hours (Table) 02/24/23 02/24/23 02/24/23 Range/Units 14:02 16:21 17:53 Hgb (11.4-16.0) gm/dL Hct (34.0-46.0) % MCHC (31.0-37.0) g/dL RDW (11.5-15.5) % POC Glucose (mg/dL) 150 H 146 H (70-110) mg/dL Troponin I 0.538 H* (0.000-0.034) ng/mL 02/24/23 02/25/23 Range/Units 20:54 07:43 Hgb 10.0 L (11.4-16.0) gm/dL Hct 33.3 L (34.0-46.0) % MCHC 30.2 L (31.0-37.0) g/dL RDW 16.6 H (11.5-15.5) % POC Glucose (mg/dL) 198 H (70-110) mg/dL Troponin I (0.000-0.034) ng/mL
[2023-02-25 11:33] VITALS: BMI 28.3
[2023-02-25 11:46] LABS: Glucose,Whole Blood 165 mg/dL (70-110)
--- NOTE | 2023-02-25 16:18 | P.PN ---
Subjective Progress Note Date: 02/25/23 62-year-old the female came in with complaints of chest pain pressure-like sensation nonradiating. Patient had history of coronary artery disease and medical physician in the past patient is found to have elevated troponins of 1.030 which is higher than her first troponin of 0.299 patient is on IV heparin. Patient was in acute renal failure which improved with IV fluids patient creatinine was 1.33 improved to 0.99 patient is on anti-correlation with Xarelto for atrial fibrillation, presently sinus rhythm with ST depressions in the anterolateral leads, no echo cardiac exam is available in the system. Patient also had highly elevated blood sugars which has come down at this time. 02/25/2023 Patient was evaluated today status post cardiac catheterization and successful stenting of the mid left circumflex/OM1. Patient has intermediate disease involving the mid LAD distal to the stented segment. Recommended for dual antiplatel therapy for the next 12 months with aspirin and plavix. Review of Systems Constitutional: Denied any fatigue denied any fever. Cardio vascular: denied any chest pain, palpitations Gastrointestinal: denied any nausea, vomiting, diarrhea Pulmonary: Denied any shortness of breath cough Neurologic denied any new focal deficits All inpatient medications were reviewed and appropriate changes in these medications as dictated in the interval history and assessment and plan. PHYSICAL EXAMINATION: GENERAL: The patient is alert and oriented x3, not in any acute distress. Well developed, well nourished. HEENT: Pupils are round and equally reacting to light. EOMI. No scleral icterus. No conjunctival pallor. Normocephalic, atraumatic. No pharyngeal erythema. No thyromegaly. CARDIOVASCULAR: S1 and S2 present. No murmurs, rubs, or gallops. PULMONARY: Chest is clear to auscultation, no wheezing or crackles. ABDOMEN: Soft, nontender, nondistended, normoactive bowel sounds. No palpable organomegaly. MUSCULOSKELETAL: No joint swelling or deformity. EXTREMITIES: No cyanosis, clubbing, or pedal edema. NEUROLOGICAL: Gross neurological examination did not reveal any focal deficits. SKIN: No rashes. Assessment -Acute non-ST elevation SC with stenting to the mild left circ/OM1 -Acute renal failure: Prerenal azotemia from possibly myocardial infarction, improved with IV fluids -Hyperglycemia most probably due to noncompliance, improved with home regimen which will be continued, metformin remains on hold. Blood glucose has improved down to 160s on sliding scale, hemoglobin A1C 8.8. -Fibromyalgia -Hyperlipidemia -Hypertension -Gastroesophageal reflux disease -Restless leg syndrome -Prior cardiac stenting -Hx of permanent pacemaker -COPD without any acute exacerbation -Hx of paroxysmal atrial fibrillation -Hx of coronary artery disease and prior cardiac stenting GI prophylaxis DVT prophylaxis patient is anticoagulated with xarelto Full Code Plan Dual antiplatelet therapy with aspirin and plavix in place Patient on statin therapy Resumed on xarelto Pending echocardiogram and possible D/C home today when echocardiogram done and resulted. The impression and plan of care has been dictated by Shaista Mercado, Nurse Practitioner as directed. Dr. Maegan MD I have performed a history and physical examination and medical decision making of this patient, discussed the same with the dictator, and agree with the di ctators assessment and plan as written, documented as a scribe. Based on total visit time, I have performed more than 50% of this visit. Objective - Vital Signs Vital signs: Vital Signs Temp 97.8 F 02/25/23 09:15 Pulse 62 02/25/23 09:15 Resp 16 02/25/23 09:15 BP 167/68 02/25/23 09:15 Pulse Ox 94 L 02/25/23 03:49 FiO2 Intake & Output 02/24/23 02/25/23 02/25/23 18:59 06:59 18:59 Intake Total 430 Balance 430 Weight 77.111 kg Intake: IV 250 Oral 180 Other: Voiding Method Toilet # Voids 1 2 - Labs CBC & Chem 7: 02/25/23 07:43 02/25/23 07:43 Labs: Abnormal Lab Results - Last 24 Hours (Table) 02/24/23 02/24/23 02/24/23 Range/Units 09:10 09:10 09:10 RBC 3.74 L (3.80-5.40) m/uL Hgb 9.5 L (11.4-16.0) gm/dL Hct 31.6 L (34.0-46.0) % MCHC 30.2 L (31.0-37.0) g/dL RDW 16.2 H (11.5-15.5) % APTT 49.9 H (22.0-30.0) sec POC Glucose (mg/dL) (70-110) mg/dL Troponin I 1.030 H* (0.000-0.034) ng/mL 02/24/23 02/24/23 02/24/23 Range/Units 10:52 14:02 16:21 RBC (3.80-5.40) m/uL Hgb (11.4-16.0) gm/dL Hct (34.0-46.0) % MCHC (31.0-37.0) g/dL RDW (11.5-15.5) % APTT (22.0-30.0) sec POC Glucose (mg/dL) 166 H 150 H 146 H (70-110) mg/dL Troponin I (0.000-0.034) ng/mL 02/24/23 02/24/23 02/25/23 Range/Units 17:53 20:54 07:43 RBC (3.80-5.40) m/uL Hgb 10.0 L (11.4-16.0) gm/dL Hct 33.3 L (34.0-46.0) % MCHC 30.2 L (31.0-37.0) g/dL RDW 16.6 H (11.5-15.5) % APTT (22.0-30.0) sec POC Glucose (mg/dL) 198 H (70-110) mg/dL Troponin I 0.538 H* (0.000-0.034) ng/mL Assessment and Plan Time with Patient: Less than 30
[2023-02-25 16:40] LABS: Glucose,Whole Blood 209 mg/dL (70-110)
[2023-02-25] MEDS ORDERED: RIVAROXABAN 20 MG TAB PO SCH (17:30)
--- NOTE | 2023-02-25 17:48 | CA ---
Transthoracic Echo Report Name: Rebekah Osman Age: 62 Gender: F : 1960 Exam Date: 02/25/2023 14:22 Exam Location: [facility] Ht (in): 65 Wt (lb): 170 Ordering Physician: Juan Miguel Goyal MD ([id number]) Attending/Referring Phys: Nursing Home Admissions Director Ene Joe RDCS Procedure CPT: Indications: nstemi Cardiac Hx: Technical Quality: Good Contrast 1: Total Dose (mL): Contrast 2: Total Dose (mL): MEASUREMENTS (Male / Female) Normal Values 2D ECHO LV Diastolic Diameter PLAX 4.8 cm 4.2 - 5.9 / 3.9 - 5.3 cm LV Systolic Diameter PLAX 3.2 cm IVS Diastolic Thickness 1.2 cm 0.6 - 1.0 / 0.6 - 0.9 cm LVPW Diastolic Thickness 1.1 cm 0.6 - 1.0 / 0.6 - 0.9 cm LV Relative Wall Thickness 0.5 RV Internal Dim ED PLAX 2.8 cm LVOT Diameter 1.9 cm LA Systolic Diameter LX 4.3 cm 3.0 - 4.0 / 2.7 - 3.8 cm LV Diastolic Volume MOD 4C 80.4 cm??? LV Systolic Volume MOD 4C 46.0 cm??? LV Ejection Fraction MOD 4C 42.7 % LV Cardiac Index MOD 4C 1102.0 cm???/min???m??? LV Diastolic Length 4C 8.0 cm LV Systolic Length 4C 6.8 cm LV Diastolic Volume MOD 2C 88.2 cm??? LV Systolic Volume MOD 2C 40.9 cm??? LV Ejection Fraction MOD 2C 53.6 % LV Cardiac Index MOD 2C 1516.3 cm???/min???m??? LV Diastolic Length 2C 8.1 cm LV Systolic Length 2C 7.0 cm LA Volume 102.6 cm??? 18 - 58 / 22 - 52 cm??? LA Volume Index 54.0 cm???/m??? 16 - 28 cm???/m??? M-MODE Aortic Root Diameter MM 2.7 cm MV E Point Septal Separation 1.2 cm AV Cusp Separation MM 1.1 cm DOPPLER AV Peak Velocity 292.0 cm/s AV Peak Gradient 34.1 mmHg AV Mean Velocity 213.2 cm/s AV Mean Gradient 20.2 mmHg AV Velocity Time Integral 77.7 cm LVOT Peak Velocity 81.2 cm/s LVOT Peak Gradient 2.6 mmHg AV Area Cont Eq pk 0.8 cm??? MV Peak Velocity 160.2 cm/s MV Peak Gradient 10.3 mmHg MV Mean Velocity 80.6 cm/s MV Mean Gradient 3.1 mmHg MV Velocity Time Integral 49.0 cm MV Area PHT 3.2 cm??? Mitral E Point Velocity 141.4 cm/s Mitral A Point Velocity 85.6 cm/s Mitral E to A Ratio 1.7 MV Deceleration Time 235.6 ms MV E' Velocity 4.5 cm/s Mitral E to MV E' Ratio 31.1 TR Peak Velocity 293.8 cm/s TR Peak Gradient 34.5 mmHg Right Ventricular Systolic Press 37.9 mmHg FINDINGS Left Ventricle Left ventricular ejection fraction is estimated at 45-50 %. Left ventricular cavity size normal. Mildly increased septal wall thickness. Mildly increased posterior wall thickness. Right Ventricle Normal right ventricular size and function. Mild pulmonary hypertension. Right Atrium Normal right atrial size. Left Atrium Moderately increased left atrial diameter. Severely increased left atrial volume. Mildly increased left atrial area. Mitral Valve Structurally normal mitral valve. Modetate Mitral valve thickening. Mass like structure on anterior MV leaflet Aortic Valve Aortic valve sclerosis. Moderate aortic stenosis with a peak gradient of 34 mmHg and a mean gradient of 20 mmHg. Tricuspid Valve Structurally normal tricuspid valve. Mild tricuspid regurgitation. Pulmonic Valve Pulmonic valve not well visualized. Pericardium No pericardial effusion. Aorta Normal size aortic root and proximal ascending aorta. CONCLUSIONS Mild LV dysfunction Severe left atrial enlargement Moderate aortic stenosis with a peak gradient of 34 mm and a mean gradient of 20 mm We may be underestimating the aortic stenosis secondary to LV dysfunction Consider dobutamine echo if clinically indicated Previewed by: Dr. Pranav Munoz MD (Electronically Signed) Final Date: 25 February 2023 17:47
[2023-02-25 20:24] LABS: Glucose,Whole Blood 138 mg/dL (70-110)
[2023-02-25] MEDS: INSULIN DETEMIR (LEVEMIR) 100 UNIT/ML SYR SQ SCH (21:00)
[2023-02-26 06:08] LABS: Glucose,Whole Blood 104 mg/dL (70-110)
[2023-02-26] MEDS: INSULIN ASPART (NovoLOG) 100 UNIT/ML VIAL SQ SCH (06:08)
[2023-02-26] MEDS: LEVOTHYROXINE 137 MCG TAB PO SCH (06:13)
[2023-02-26] MEDS: SODIUM CHLORIDE 0.9% 1,000 ML IV SCH (06:13)
[2023-02-26] MEDS: CLOPIDOGREL 75 MG TAB PO SCH (09:54)
[2023-02-26] MEDS: ATORVASTATIN 80 MG TAB PO SCH (09:55)
[2023-02-26] MEDS: LOSARTAN-HCTZ 50-12.5 MG 1 EACH TAB PO SCH (09:57)
[2023-02-26] MEDS: PANTOPRAZOLE SODIUM 40 MG GRANULE PKT PO SCH (09:57)
[2023-02-26] MEDS: METOPROLOL SUCCINATE (ER) 50 MG TAB.ER.24H PO SCH (09:57)
[2023-02-26] MEDS: traMADol 50 MG TAB PO SCH (09:58)
[2023-02-26] MEDS: ASPIRIN 81 MG PO SCH (09:58)
[2023-02-26 11:16] LABS: Glucose,Whole Blood 158 mg/dL (70-110)
[2023-02-26 11:44] VITALS: BP 176/70; PULSE 56; RESP 18; TEMP 98
--- NOTE | 2023-02-26 12:41 | P.PN ---
Subjective HISTORY OF PRESENT ILLNESS: This is a 62-year-old female who follows in the office with Dr. Mendez. Patient presented to the hospital with a chief complaint of chest pain. Patient was found to have a non-STEMI. She underwent cardiac catheterization yesterday with Dr. Gruber. She was found to have critical disease involving the ostial OM1 of the circumflex. She underwent stenting of OM1. Patient was found to have inter mediate disease involving the mid LAD distal to a stented segment. Patient examined this morning at the bedside. Patient denies any further episodes of chest pain or pressure. She denies shortness of breath. Patient's blood pressure is elevated today with a systolic in the 170s. 02/26/2023 Patient examined this morning at the bedside. Patient denies chest pain or pressure. She denies shortness of breath. Vital signs are stable. Blood pressure has improved since yesterday. Echocardiogram completed revealing ejection fraction 45-50%. PHYSICAL EXAM: VITAL SIGNS: Reviewed. GENERAL: Well-developed in no acute distress. NECK: Supple. No JVD or thyromegaly LUNGS: Respirations even and unlabored. Lungs essentially clear to auscultation bilaterally. HEART: Regular rate and rhythm. S1 and S2 heard. Systolic murmur noted EXTREMITIES: Normal range of motion. No clubbing or cyanosis. Peripheral pulses intact. No lower extremity edema ASSESSMENT: Non-STEMI, status post cardiac catheterization with stenting of the OM1 History of coronary artery disease with previous stenting Hyperlipidemia Hypertension Diabetes History of COPD History of paroxysmal atrial fibrillation History of pacemaker implantation PLAN: Continue current cardiac medications Patient is stable for discharge home today from a cardiac standpoint Patient to follow up post discharge with Dr. Mendez Nurse practitioner note has been reviewed by physician. Signing provider agrees with the documented findings, assessment, and plan of care. Objective - Vital Signs Vital signs: Vital Signs Temp 98 F 02/26/23 11:26 Pulse 56 L 02/26/23 11:26 Resp 18 02/26/23 11:26 BP 176/70 02/26/23 11:26 Pulse Ox 95 02/26/23 11:26 FiO2 Intake & Output 02/25/23 02/26/23 02/26/23 18:59 06:59 18:59 Intake Total 818 110 Balance 818 110 Weight 77.111 kg Intake: Oral 818 110 Other: Voiding Method Toilet Toilet Toilet # Voids 2 - Labs CBC & Chem 7: 02/25/23 07:43 02/25/23 07:43 Labs: Abnormal Lab Results - Last 24 Hours (Table) 02/25/23 02/25/23 02/26/23 Range/Units 16:38 20:23 11:12 POC Glucose (mg/dL) 209 H 138 H 158 H (70-110) mg/dL
--- NOTE | 2023-02-27 13:40 | P.DS ---
Providers Date of admission: 02/25/23 09:21 Attending physician: Mariaelena Haas Consults: 02/24/23 03:14 Consult Physician Routine Consulting Provider: Anibal Gruber Consult Reason/Comments: NSTEMI Do you want consulting provider notified?: Yes 02/24/23 15:17 Consult Physician Routine Consulting Provider: Cardiology Kalpesh Consult Reason/Comments: Post Interventional patient Do you want consulting provider notified?: Already Contacted Primary care physician: Lilli [facility] Course: Final Diagnosis -Acute non-ST elevation MS with stenting to the mild left circ/OM1 -Acute renal failure: Prerenal azotemia from possibly myocardial infarction, improved with IV fluids -Systolic heart failure ejection fraction 45-50% with moderate aortic stenosis -Hyperglycemia most probably due to noncompliance Blood glucose has improved down to 160s on sliding scale, hemoglobin A1C 8.8. -Fibromyalgia -Hyperlipidemia -Hypertension -Gastroesophageal reflux disease -Restless leg syndrome -Prior cardiac stenting -Hx of permanent pacemaker -COPD without any acute exacerbation -Hx of paroxysmal atrial fibrillation -Hx of coronary artery disease and prior cardiac stenting GI prophylaxis DVT prophylaxis patient is anticoagulated with xarelto Full Code Discharge Disposition Patient seen for discharge home. Patient is recommended for Continue on triple therapy with aspirin 81 mg daily, xarelto 20 mg HS, and plavix 75 mg daily for the next 12 months. Patient is also discharged on statin therapy. Xarelto was resumed. Patient will follow-up with cardiology as an office in 1-2 weeks. L osartan hydrochlorothiazide combination was added for improved blood pressure control. Patient is resumed on her oral hypoglycemic agents and educated on the importance of adherence with this regimen as well as taking the insulin sliding scale 3 times a day as needed. Monitor blood glucose and recommending to only use 30 units of levemir HS and blood sugar is now in the mid 100s. Patient verbalizes understanding. Hospital course This is a 62-year-old the female came in with complaints of chest pain pressure- like sensation nonradiating. Patient had history of coronary artery disease and prior cardiac stenting, as well hypertension, hyperlipidemia, GERD, restless leg, COPD, paroxysmal atrial fibrillation anticoagulated with xarelto, and permanent pacemaker. Patient is found to have elevated troponins of 1.030 which is higher than her first troponin of 0.299, admitted to the hospital under medicine with cardiology consultation and given IV heaprin. Patient was in acute renal failure which improved with IV fluids patient creatinine was 1.33 improved to 0.99. EKG reveals sinus rhythm with ST depressions in the anterolateral leads, no echo cardiac exam is available in the system. Patient also had highly elevated blood sugars on admission in the 600s due to medication noncompliance. Metformin was held this admission as patient underwent cardiac catheterization. This was to avoid contrast induced nephropathy. Patient underwent successful stenting of the mild left circ/OM1 and started on dual antiplatelet therapy with aspirin 81 mg daily and plavix 75 mg daily. Echocardiogram reveals mild LV dysfunction EF 45-50% with severe left atrial enlargement and moderate aortic stenosis. There is a peak gradient of 34 mm and a mean gradient of 20 mm. The degree of aortic stenosis may be underestimated due to the LV dysfunction. Blood sugar is now down to the 150s. Sodium was 127 on currently now 140. We will 40 on admission with a creatinine of 1.37 which is also improved renal function is now normal. Patient denies chest pain, denies shortness of breath, no dizziness or lightheadedness she is alert 3 focal neurological exam is negative. Lungs are clear S1 S2 auscultated. Patient will be discharged home with the above-mentioned recommendations. Please see medication reconciliation for a list of current medication. Thank you for allowing us to participate in the care of this patient. The impression and plan of care has been dictated by Shaista Mercado, Nurse Practitioner as directed. Dr. Maegan MD I have performed a history and physical examination and medical decision making of this patient, discussed the same with the dictator, and agree with the dictators assessment and plan as written, documented as a scribe. Based on total visit time, I have performed more than 50% of this visit. Patient Condition at Discharge: Stable Plan - Discharge Summary New Discharge Prescriptions: New Aspirin 81 mg PO DAILY #30 tab Losartan-Hctz 50-12.5 mg [Hyzaar 50-12.5] 1 each PO DAILY #30 tab Atorvastatin [Lipitor] 80 mg PO DAILY #30 tab Nitroglycerin Sl Tabs [Nitrostat] 0.4 mg SUBLINGUAL Q5M PRN #20 tab PRN Reason: Chest Pain Clopidogrel [Plavix] 75 mg PO DAILY #30 tab Rivaroxaban [Xarelto] 20 mg PO W/SUPPER #30 tab Continue glipiZIDE [Glucotrol] 10 mg PO BID traMADol HCL [Ultram] 50 mg PO QID Pantoprazole Sodium 40 mg PO DAILY Insulin Detemir [Levemir Flextouch Pen] 30 - 50 units SQ HS Potassium Chloride [Klor-Con 20] 20 meq PO DAILY clonazePAM [KlonoPIN] 0.5 mg PO HS PRN PRN Reason: Insomnia Insulin Aspart [NovoLOG Flexpen] See Protocol SQ AC-TID Levothyroxine Sodium [Synthroid] 137 mcg PO DAILY Fluticasone/Umeclidin/Vilanter [Trelegy Ellipta 200-62.5-25] 1 puff INHALATION RT-DAILY metFORMIN HCL 1,000 mg PO BID Metoprolol Succinate (ER) [Toprol XL] 100 mg PO BID rOPINIRole HCL 10 mg PO HS Discontinued Rivaroxaban [Xarelto] 20 mg PO DAILY lisinopriL [Zestril] 10 mg PO HS Discharge Medication List glipiZIDE [Glucotrol] 10 mg PO BID 08/26/15 [History] traMADol HCL [Ultram] 50 mg PO QID 09/23/17 [History] Insulin Detemir [Levemir Flextouch Pen] 30 - 50 units SQ HS 07/28/20 [History] Pantoprazole Sodium 40 mg PO DAILY 07/28/20 [History] Potassium Chloride [Klor-Con 20] 20 meq PO DAILY 07/28/20 [History] Fluticasone/Umeclidin/Vilanter [Trelegy Ellipta 200-62.5-25] 1 puff INHALATION RT-DAILY 01/18/22 [History] metFORMIN HCL 1,000 mg PO BID 01/18/22 [History] Insulin Aspart [NovoLOG Flexpen] See Protocol SQ AC-TID 02/23/23 [History] Levothyroxine Sodium [Synthroid] 137 mcg PO DAILY 02/23/23 [History] Metoprolol Succinate (ER) [Toprol XL] 100 mg PO BID 02/23/23 [History] clonazePAM [KlonoPIN] 0.5 mg PO HS PRN 02/23/23 [History] rOPINIRole HCL 10 mg PO HS 02/23/23 [History] Aspirin 81 mg PO DAILY #30 tab 02/26/23 [Rx] Atorvastatin [Lipitor] 80 mg PO DAILY #30 tab 02/26/23 [Rx] Clopidogrel [Plavix] 75 mg PO DAILY #30 tab 02/26/23 [Rx] Losartan-Hctz 50-12.5 mg [Hyzaar 50-12.5] 1 each PO DAILY #30 tab 02/26/23 [Rx] Nitroglycerin Sl Tabs [Nitrostat] 0.4 mg SUBLINGUAL Q5M PRN #20 tab 02/26/23 [Rx] Rivaroxaban [Xarelto] 20 mg PO W/SUPPER #30 tab 02/26/23 [Rx] Follow up Appointment(s)/Referral(s): Annabel Mendez MD [STAFF PHYSICIAN] - 1 Week (The office will call you for your follow up appointment) Lilli Cabrales MD [Primary Care Provider] - 1-2 days Ambulatory/Diagnostic Orders: Basic Metabolic Panel [LAB.AMB] Time Frame: 3 Days, Location: None Selected Patient Instructions/Handouts: *Surgery [facility] - After Heart Catheterization - Mail Delivery Supervisor Instructions Activity/Diet/Wound Care/Special Instructions: Continue on triple therapy with aspirin 81 mg daily, xarelto 20 mg HS, and plav ix 75 mg daily Follow up with your glassworker in 1 to 2 weeks. Monitor blood glucose and recommending to only use 30 units of levemir HS and blood sugar is now in the mid 100s. Repeat labs in 2 to 3 days and follow up with your glassworker. Discharge Disposition: HOME SELF-CARE
--- NOTE | 2023-02-28 10:58 | CDI ---
Pt Name: Rebekah Osman CONFIDENTIAL MR#: [id number] Adm Date: 02/25/2023 09:21:00 AM Printed:02/28/2023 Physician Documentation Request Page 2 of 2 ICD-10-CM Ready Physicians Documentation Request This Form is Not a Permanent Document in the Medical Record Pt Name: Rebekah Osman MR #: [id number] Payor: MEDICARE Unit/Bed: [id number] Adm Date: 02/25/2023 09:21:00 AM Reviewer: Leila Muro Ext. Query Date: 02/28/2023 10:49:23 AM By submitting this query, we are merely seeking further clarification of documentation to accurately reflect all conditions that you are monitoring, evaluating, treating or that extend the hospitalization or utilize additional resources of care. Please utilize your independent clinical judgment when addressing the question(s) below. Dear Doctor Zarina Issa, The patients Clinical Indicators include: There is documentation of Systolic heart failure EF 45-50% in DCS. Additional clarification of the acuity of the condition is requested. History/Risk Factors: NSTEMI RBBB Afib Acute renal failure Clinical Indicators: Mild LV dysfunction and severe atrial enlargement per ECHO Treatment: PCI and heart cath Can you please clarify the acuity of the Systolic CHF? [ ] Acute [ ] Sub-acute [ x ] Chronic [ ] History of [ ] Other, please specify [ ] Unable to determine PLEASE DOCUMENT ANY ADDITIONAL DIAGNOSES AND/OR SPECIFICITY IN THE PROGRESS NOTES AND/OR DISCHARGE SUMMARY. Agreed & documented Clinically unable to determine/unknown Disagree with the above request Need to discuss MTDD
== END 2023-02-26 12:18 | disposition home or self-care (01) | DRG 321 ==
LOC: EC 20:50 → 3SCARD 02-24 03:15 → OBSVTOIN 02-25 09:21
PROVIDERS: ADMIT Hospitalist; ATTEND Hospitalist
PROC: 4A023N7 Measurement of Cardiac Sampling and Pressure, Left Heart, Percutaneous Approach (ICD-10-PCS; principal; 2023-02-24 12:22)
PROC: 027034Z Dilation of Coronary Artery, One Artery with Drug-eluting Intraluminal Device, Percutaneous Approach (ICD-10-PCS; principal; 2023-02-24 12:22)
PROC: B2111ZZ Fluoroscopy of Multiple Coronary Arteries using Low Osmolar Contrast (ICD-10-PCS; principal; 2023-02-24 12:22)
PROC: B240ZZ3 Ultrasonography of Single Coronary Artery, Intravascular (ICD-10-PCS; principal; 2023-02-24 12:22)
DX: I21.4 Non-ST elevation (NSTEMI) myocardial infarction (principal); E11.00 Type 2 diabetes mellitus with hyperosmolarity without nonketotic hyperglycemic-hyperosmolar coma (NKHHC); N17.9 Acute kidney failure, unspecified; I50.22 Chronic systolic (congestive) heart failure; E89.0 Postprocedural hypothyroidism; E11.65 Type 2 diabetes mellitus with hyperglycemia; E78.5 Hyperlipidemia, unspecified; G25.81 Restless legs syndrome; I11.0 Hypertensive heart disease with heart failure; K21.9 Gastro-esophageal reflux disease without esophagitis; I25.10 Atherosclerotic heart disease of native coronary artery without angina pectoris; I25.2 Old myocardial infarction; I35.0 Nonrheumatic aortic (valve) stenosis; I44.0 Atrioventricular block, first degree; I45.10 Unspecified right bundle-branch block; I48.0 Paroxysmal atrial fibrillation; M79.7 Fibromyalgia; J44.9 Chronic obstructive pulmonary disease, unspecified; T38.3X6A Underdosing of insulin and oral hypoglycemic [antidiabetic] drugs, initial encounter; Z79.4 Long term (current) use of insulin; Z79.84 Long term (current) use of oral hypoglycemic drugs; Z86.16 Personal history of COVID-19; Z83.3 Family history of diabetes mellitus; Z91.128 Patient's intentional underdosing of medication regimen for other reason; Z79.890 Hormone replacement therapy; Z91.040 Latex allergy status; Z79.01 Long term (current) use of anticoagulants
CPT/HCPCS: 36415; 71046; 80048; 80051; 80053; 81003; 82009; 82565; 82947; 83036; 83690; 83735; 84100; 84484; 84520; 85025; 85379; 85610; 85730; 92978; 93005; 93306; 93458; 96361; 96365; 96366; 96375; 99285

== ENCOUNTER 2024-05-28 17:58 | Inpatient (IN) | payer MEDICARE, OTHER ==
--- NOTE | 2024-05-28 18:38 | ED ---
SOB HPI - General Source: patient, RN notes reviewed Mode of arrival: ambulatory Limitations: no limitations - History of Present Illness MD Complaint: shortness of breath <Renita Reeder - Last Filed: 05/28/24 18:36> <Jeremy Escalona - Last Filed: 05/28/24 22:47> - General Chief Complaint: Shortness of Breath Stated Complaint: giorgi Time Seen by Provider: 05/28/24 18:30 - History of Present Illness Initial Comments: Quick Note: This is a 64-year-old female who presents to the emergency department for shortness of breath. States that it started a couple of weeks ago and seems to be getting worse. Denies any associated chest pain. She does have some coughing. She has also noticed swelling in her legs over the last couple of days and is unable to lay flat. Reports a history of COPD but states that her breathing treatments have not been very effective. (Renita Reeder) Dictation was produced using [employer] dictation software. please excuse any grammatical, word or spelling errors. Chief Complaint: 64-year-old female with history of tobacco use presents to the emergency department for shortness of breath History of Present Illness: Patient 64-year-old female she has past medical history of A-fib, asthma, COPD states that she has been having a dry cough and short of breath. Patient has a history of heart failure. States that her lower legs feel swollen bilaterally. Denies any calf pain. No history of PE. Denies any medial thigh pain. She does however complain of bilateral leg pain. Denies any fever or constitutional symptoms. No obvious sick contacts patient also complains of medial chest pain. Nonradiating not associated with radiation or diaphoresis. The ROS documented in this emergency department record has been reviewed and confirmed by me. Those systems with pertinent positive or negative responses have been documented in the HPI. All other systems are other negative and/or noncontributory. (Jeremy Escalona) - Related Data Home Medications Medication Instructions Recorded Confirmed glipiZIDE [Glucotrol] 10 mg PO BID 08/26/15 02/23/23 traMADol HCL [Ultram] 50 mg PO QID 09/23/17 02/23/23 Insulin Detemir [Levemir Flextouch 30 - 50 units SQ HS 07/28/20 02/23/23 Pen] Pantoprazole Sodium 40 mg PO DAILY 07/28/20 02/23/23 Potassium Chloride [Klor-Con 20] 20 meq PO DAILY 07/28/20 02/23/23 Fluticasone/Umeclidin/Vilanter 1 puff INHALATION RT-DAILY 01/18/22 02/23/23 [Trelegy Ellipta 200-62.5-25] metFORMIN HCL 1,000 mg PO BID 01/18/22 02/23/23 Insulin Aspart [NovoLOG Flexpen] See Protocol SQ AC-TID 02/23/23 02/23/23 Levothyroxine Sodium [Synthroid] 137 mcg PO DAILY 02/23/23 02/23/23 Metoprolol Succinate (ER) [Toprol 100 mg PO BID 02/23/23 02/23/23 XL] clonazePAM [KlonoPIN] 0.5 mg PO HS PRN 02/23/23 02/23/23 rOPINIRole HCL 10 mg PO HS 02/23/23 02/23/23 Previous Rx's Medication Instructions Recorded Aspirin 81 mg PO DAILY #30 tab 02/26/23 Atorvastatin [Lipitor] 80 mg PO DAILY #30 tab 02/26/23 Clopidogrel [Plavix] 75 mg PO DAILY #30 tab 02/26/23 Losartan-Hctz 50-12.5 mg [Hyzaar 1 each PO DAILY #30 tab 02/26/23 50-12.5] Nitroglycerin Sl Tabs [Nitrostat] 0.4 mg SUBLINGUAL Q5M PRN #20 tab 02/26/23 Rivaroxaban [Xarelto] 20 mg PO W/SUPPER #30 tab 02/26/23 Allergies Allergy/AdvReac Type Severity Reaction Status Date / Time latex Allergy Rash/Hives Verified 05/28/24 18:50 Review of Systems ROS Other: All systems not noted in ROS Statement are negative. <Renita Reeder - Last Filed: 05/28/24 18:36> ROS Other: All systems not noted in ROS Statement are negative. <Jeremy Escalona - Last Filed: 05/28/24 22:47> ROS Statement: Those systems with pertinent positive or pertinent negative responses have been documented in the HPI. Past Medical History Past Medical History: Atrial Fibrillation, Asthma, COPD, Diabetes Mellitus, Fibromyalgia, GERD/Reflux, Hyperlipidemia, Hypertension, Thyroid Disorder, Vascular Disorder Additional Past Medical History / Comment(s): Restless leg syndrom. COVID 02/03/22 History of Any Multi-Drug Resistant Organisms: None Reported Past Surgical History: Heart Catheterization With Stent, Pacemaker, Tubal Ligation Additional Past Surgical History / Comment(s): BI VENTRICULAR PACER. THYROIDECTOMY, CTR-RT WRIST, Cataract surgery R/L eye., one cardiac stent Past Anesthesia/Blood Transfusion Reactions: Postoperative Nausea & Vomiting (PONV) Date of Last Stent Placement:: unknown Type of Cardiac Device: Biventricular Pacemaker Device Placement Date:: 07/29/2020 Past Psychological History: No Psychological Hx Reported Smoking Status: Former smoker Past Alcohol Use History: Rare Past Drug Use History: None Reported - Past Family History Son(s) Additional Family Medical History / Comment(s): BLINDNESS FROM DIABETES. Father Family Medical History: Cancer <Renita Reeder - Last Filed: 05/28/24 18:36> General Exam <Renita Reeder - Last Filed: 05/28/24 18:36> <Jeremy Escalona - Last Filed: 05/28/24 22:47> - General Exam Comments Initial Comments: Visual Physical Exam Vital signs reviewed General: Well-appearing, nontoxic, no acute distress. Head: Normocephalic, atraumatic Eyes: PERRLA, EOMI ENT: Airway patent Chest: Nonlabored breathing Skin: No visual rash, normal skin tone Neuro: Alert and oriented 3 Musculoskeletal: No gross abnormalities (Renita Reeder) PHYSICAL EXAM: General Impression: Alert and oriented x3, not in acute distress HEENT: Normocephalic atraumatic, extra-ocular movements intact, pupils equal and reactive to light bilaterally, mucous membranes moist. Cardiovascular: Heart regular rate and rhythm Chest: Able to complete full sentences, no retractions, no tachypnea, clear to auscultation bilaterally Abdomen: abdomen soft, non-tender, non-distended, no organomegaly Musculoskeletal: Pulses present and equal in all extremities, 1 plus pitting edema bilaterally Motor: no focal deficits noted Neurological: CN II-XII grossly intact, no focal motor or sensory deficits noted Skin: Intact with no visualized rashes Psych: Normal affect and mood (Jeremy Escalona) Course Vital Signs 05/28/24 05/28/24 05/28/24 18:47 19:46 19:53 Temperature 98.1 F Pulse Rate 77 65 Respiratory 22 18 20 Rate Blood Pressure 108/69 146/58 O2 Sat by Pulse 92 L 94 L Oximetry 05/28/24 05/28/24 05/28/24 22:00 22:07 22:10 Temperature Pulse Rate 60 60 59 L Respiratory 18 Rate Blood Pressure 140/57 O2 Sat by Pulse 98 Oximetry Medical Decision Making <Renita Reeder - Last Filed: 05/28/24 18:36> - Lab Data Result diagrams: 05/28/24 19:39 05/28/24 20:34 <Jeremy Escalona - Last Filed: 05/28/24 22:47> - Medical Decision Making I performed the QuickNote portion of this chart. Signed Renita Reeder PA-C. (Renita Reeder) My EKG interpretation: Ventricular rate 63, sinus rhythm,. 190, QRS 118, QTc 433. No PA prolongation, no QTC prolongation, no ST or T-wave changes noted. EKG compared to February 25, 2023 showing no changes. Overall, this EKG is unremarkable Was pt. sent in by a medical professional or institution (MICHELLE Avila, PARASITOLOGY TEACHER, urgent care, hospital, or penitentiary...) When possible be specific @ -No Did you speak to anyone other than the patient for history (EMS, parent, family, police, friend...)? What history was obtained from this source @ -Some history obtained from family at the bedside as described above Did you review nursing and triage notes (agree or disagree)? Why? @ -I reviewed and agree with nursing and triage notes Were old charts reviewed (outside hosp., previous admission, EMS record, old EKG, old radiological studies, urgent care reports/EKG's, penitentiary records)? Report findings @ -No old charts were reviewed Differential Diagnosis (chest pain, altered mental status, abdominal pain women, abdominal pain men, vaginal bleeding, musculoskeletal, weakness, fever, dyspnea, syncope, headache, dizziness, GI bleed, back pain, seizure, CVA, palpatations, mental health)? @ -Differential Dyspnea: Coronary syndrome, arrhythmia, tamponade, asthma, COPD, pulmonary embolism, pneumonia, pneumothorax, pulmonary effusion, anaphylaxis, diabetic ketoacidosis, flailed chest, pulmonary contusion, diaphragmatic rupture, anemia, neuromuscular, this is not meant to be an all-inclusive list. EKG interpreted by me (3pts min.). @ -See above X-rays interpreted by me (1pt min.). @ -Chest x-ray shows no acute processes CT interpreted by me (1pt min.). @ -None done U/S interpreted by me (1pt. min.). @ -None done What testing was considered but not performed or refused? (CT, X-rays, U/S, labs)? Why? @ -None What meds were considered but not given or refused? Why? @ -None Was smoking cessation discussed for >3mins.? @ -No Were there social determinants of health that impacted care today? How? (Homelessness, low income, unemployed, alcoholism, drug addiction, transportation, low edu. Level, literacy, decrease access to med. care, fci, rehab)? @ -No Was there de-escalation of care discussed even if they declined (Discuss DNR or withdrawal of care, Hospice)? DNR status @ -No What co-morbidities impacted this encounter? (DM, HTN, Smoking, COPD, CAD, Cancer, CVA, ARF, Chemo, Hep., AIDS, mental health diagnosis, sleep apnea, morbid obesity)? @ -A-fib, diabetes, dyslipidemia hypertension Was patient admitted / discharged? Hospital course, mention meds given and route, prescriptions, significant lab abnormalities, going to OR and other pertinent info. @ -54-year-old female presents to the emergency department for shortness of breath. Patient has multiple comorbidities. Vital signs upon arrival are within acceptable limits. Patient mildly dyspneic at the bedside. She has some diminished lung sounds bilaterally. She does have a history of tobacco use likely COPD. Laboratory evaluation obtained. Hemoglobin 8.4 which has been slowly been declining for the last several years. Coag panel D-dimer is negative. Metabolic panel shows glucose of 29. Family states that patient is diabetic took her diabetes medications has not ate any food all day. Labs shows slight troponin elevation of 0.022 with a BNP of 5560. Patient allegedly has history of heart failure. There are no old BNP measurements for comparison. Vi ral testing negative. Hypoglycemia treated with dextrose. Patient given Decadron DuoNeb and Lasix. Will be admitted with consultation to cardiology. Case discussed with hospitalist for admission Did you discuss the management of the patient with other professionals (professionals i.e. , PA, PARASITOLOGY TEACHER, lab, RT, psych nurse, director social service, exerciser horse, teacher, property and supply officer, special education case manager)? Give summary @ -See above Was critical care preformed (if so, how long)? @ -Yes 33 minutes for severe hypoglycemia Undiagnosed new problem with uncertain prognosis? @ -No Drug Therapy requiring intensive monitoring for toxicity (Heparin, Nitro, Insulin, Cardizem)? @ -No Were any procedures done? @ -No Diagnosis/symptom? Acute, or Chronic, or Acute on Chronic? Uncomplicated (without systemic symptoms) or Complicated (systemic symptoms)? @ -Dyspnea, multifactorial including COPD exacerbation along with CHF. Hypoglycemia Side effects of treatment? @ -No Exacerbation, Progression, or Severe Exacerbation? @ -No Poses a threat to life or bodily function? How? (Chest pain, USA, NC, pneumonia, PE, COPD, DKA, ARF, appy, cholecystitis, CVA, Diverticulitis, Homicidal, Suicidal, threat to staff... and all critical care pts) @ -yes (Jeremy Escalona) - Lab Data Lab Results 05/28/24 05/28/24 05/28/24 Range/Units 19:39 19:39 19:39 WBC 8.8 (3.8-10.6) k/uL RBC 3.22 L (3.80-5.40) m/uL Hgb 8.4 L (11.4-16.0) gm/dL Hct 27.9 L (34.0-46.0) % MCV 86.7 (80.0-100.0) fL MCH 26.2 (25.0-35.0) pg MCHC 30.2 L (31.0-37.0) g/dL RDW 15.5 (11.5-15.5) % Plt Count 391 (150-450) k/uL MPV 8.1 Neutrophils % 66 % Lymphocytes % 22 % Monocytes % 6 % Eosinophils % 5 % Basophils % 0 % Neutrophils # 5.8 (1.3-7.7) k/uL Lymphocytes # 1.9 (1.0-4.8) k/uL Monocytes # 0.5 (0-1.0) k/uL Eosinophils # 0.5 (0-0.7) k/uL Basophils # 0.0 (0-0.2) k/uL Hypochromasia Marked PT 11.0 (10.0-12.5) sec INR 1.0 (<1.2) APTT 29.6 (22.0-30.0) sec D-Dimer (<0.60) mg/L FEU Sodium (137-145) mmol/L Potassium (3.5-5.1) mmol/L Chloride (98-107) mmol/L Carbon Dioxide (22-30) mmol/L Anion Gap mmol/L BUN (7-17) mg/dL Creatinine (0.52-1.04) mg/dL Est GFR (CKD-EPI)AfAm (>60 ml/min/1.73 sqM) Est GFR (CKD-EPI)NonAf (>60 ml/min/1.73 sqM) Glucose (74-99) mg/dL POC Glucose (mg/dL) (70-110) mg/dL POC Glu Project Development Engineer ID Plasma Lactic Acid Terry 1.6 (0.7-2.0) mmol/L Calcium (8.4-10.2) mg/dL Magnesium (1.6-2.3) mg/dL Total Bilirubin (0.2-1.3) mg/dL AST (14-36) U/L ALT (4-34) U/L Alkaline Phosphatase (38-126) U/L Troponin I (0.000-0.034) ng/mL NT-Pro-B Natriuret Pep pg/mL Total Protein (6.3-8.2) g/dL Albumin (3.5-5.0) g/dL Influenza Type A (PCR) (Not Detectd) Influenza Type B (PCR) (Not Detectd) RSV (PCR) (Not Detectd) SARS-CoV-2 (PCR) (Not Detectd) 05/28/24 05/28/24 05/28/24 Range/Units 19:39 19:50 19:54 WBC (3.8-10.6) k/uL RBC (3.80-5.40) m/uL Hgb (11.4-16.0) gm/dL Hct (34.0-46.0) % MCV (80.0-100.0) fL MCH (25.0-35.0) pg MCHC (31.0-37.0) g/dL RDW (11.5-15.5) % Plt Count (150-450) k/uL MPV Neutrophils % % Lymphocytes % % Monocytes % % Eosinophils % % Basophils % % Neutrophils # (1.3-7.7) k/uL Lymphocytes # (1.0-4.8) k/uL Monocytes # (0-1.0) k/uL Eosinophils # (0-0.7) k/uL Basophils # (0-0.2) k/uL Hypochromasia PT (10.0-12.5) sec INR (<1.2) APTT (22.0-30.0) sec D-Dimer 0.34 (<0.60) mg/L FEU Sodium (137-145) mmol/L Potassium (3.5-5.1) mmol/L Chloride (98-107) mmol/L Carbon Dioxide (22-30) mmol/L Anion Gap mmol/L BUN (7-17) mg/dL Creatinine (0.52-1.04) mg/dL Est GFR (CKD-EPI)AfAm (>60 ml/min/1.73 sqM) Est GFR (CKD-EPI)NonAf (>60 ml/min/1.73 sqM) Glucose (74-99) mg/dL POC Glucose (mg/dL) (70-110) mg/dL POC Glu Project Development Engineer ID Plasma Lactic Acid Terry (0.7-2.0) mmol/L Calcium (8.4-10.2) mg/dL Magnesium (1.6-2.3) mg/dL Total Bilirubin (0.2-1.3) mg/dL AST (14-36) U/L ALT (4-34) U/L Alkaline Phosphatase (38-126) U/L Troponin I 0.022 (0.000-0.034) ng/mL NT-Pro-B Natriuret Pep pg/mL Total Protein (6.3-8.2) g/dL Albumin (3.5-5.0) g/dL Influenza Type A (PCR) Not Detected (Not Detectd) Influenza Type B (PCR) Not Detected (Not Detectd) RSV (PCR) Not Detected (Not Detectd) SARS-CoV-2 (PCR) Not Detected (Not Detectd) 05/28/24 05/28/24 Range/Units 20:34 21:50 WBC (3.8-10.6) k/uL RBC (3.80-5.40) m/uL Hgb (11.4-16.0) gm/dL Hct (34.0-46.0) % MCV (80.0-100.0) fL MCH (25.0-35.0) pg MCHC (31.0-37.0) g/dL RDW (11.5-15.5) % Plt Count (150-450) k/uL MPV Neutrophils % % Lymphocytes % % Monocytes % % Eosinophils % % Basophils % % Neutrophils # (1.3-7.7) k/uL Lymphocytes # (1.0-4.8) k/uL Monocytes # (0-1.0) k/uL Eosinophils # (0-0.7) k/uL Basophils # (0-0.2) k/uL Hypochromasia PT (10.0-12.5) sec INR (<1.2) APTT (22.0-30.0) sec D-Dimer (<0.60) mg/L FEU Sodium 140 (137-145) mmol/L Potassium 4.6 (3.5-5.1) mmol/L Chloride 102 (98-107) mmol/L Carbon Dioxide 30 (22-30) mmol/L Anion Gap 8 mmol/L BUN 49 H (7-17) mg/dL Creatinine 1.53 H (0.52-1.04) mg/dL Est GFR (CKD-EPI)AfAm 42 (>60 ml/min/1.73 sqM) Est GFR (CKD-EPI)NonAf 36 (>60 ml/min/1.73 sqM) Glucose 29 L* (74-99) mg/dL POC Glucose (mg/dL) 26 L* (70-110) mg/dL POC Glu Project Development Engineer ID Spahn Andrey Plasma Lactic Acid Terry (0.7-2.0) mmol/L Calcium 8.8 (8.4-10.2) mg/dL Magnesium 2.0 (1.6-2.3) mg/dL Total Bilirubin 0.4 (0.2-1.3) mg/dL AST 33 (14-36) U/L ALT 24 (4-34) U/L Alkaline Phosphatase 101 (38-126) U/L Troponin I (0.000-0.034) ng/mL NT-Pro-B Natriuret Pep 5560 pg/mL Total Protein 6.8 (6.3-8.2) g/dL Albumin 3.9 (3.5-5.0) g/dL Influenza Type A (PCR) (Not Detectd) Influenza Type B (PCR) (Not Detectd) RSV (PCR) (Not Detectd) SARS-CoV-2 (PCR) (Not Detectd) Disposition <Renita Reeder - Last Filed: 05/28/24 18:36> Decision Time: 22:47 <Jereym Escalona - Last Filed: 05/28/24 22:47> Clinical Impression: Dyspnea, Hypoglycemia Disposition: ADMITTED IP TO THIS HOSP Condition: Fair Referrals: Lilli Cabrales MD [Primary Care Provider] - 1-2 days
--- NOTE | 2024-05-28 19:34 | XR ---
EXAMINATION TYPE: XR chest 2V DATE OF EXAM: 05/28/2024 7:19 PM COMPARISON: Chest radiographs from 02/23/2023 CLINICAL INDICATION: Female, 64 years old with history of difficulty breathing; [facility] TECHNIQUE: XR chest 2V Frontal and lateral views of the chest. FINDINGS: Lungs/Pleura: There is no evidence of pleural effusion, focal consolidation, or pneumothorax. Pulmonary vascularity: Unremarkable. Heart/mediastinum: Cardiomediastinal silhouette is unremarkable. Two lead cardiac conduction device o verlying the left hemithorax with lead tips projecting over the right ventricle and right atrium. Musculoskeletal: No acute osseous pathology. IMPRESSION: No acute cardiopulmonary disease/process. [facility], , 05/28/2024 7:31 PM
[2024-05-28 19:51] LABS: Basophils % (A) 0 %; Eosinophils # (A) 0.5 k/uL (0-0.7); Eosinophils % (A) 5 %; HCT 27.9 % (34.0-46.0); HGB 8.4 gm/dL (11.4-16.0); Hypochromasia Marked; Lymphocytes # (A) 1.9 k/uL (1.0-4.8); Lymphocytes % (A) 22 %; MCH 26.2 pg (25.0-35.0); MCHC 30.2 g/dL (31.0-37.0); MCV 86.7 fL (80.0-100.0); Mean Platelet Volume 8.1; Monocytes # (A) 0.5 k/uL (0-1.0); Monocytes % (A) 6 %; Neutrophils # (A) 5.8 k/uL (1.3-7.7); Neutrophils % (A) 66 %; Platelet Count 391 k/uL (150-450); RBC 3.22 m/uL (3.80-5.40); RDW 15.5 % (11.5-15.5); WBC 8.8 k/uL (3.8-10.6)
[2024-05-28 20:01] LABS: Partial Thromboplastin Time 29.6 sec (22.0-30.0)
[2024-05-28 21:18] LABS: ALT 24 U/L (4-34); AST 33 U/L (14-36); African American GFR (CKD) 42 (>60 ml/min/1.73 sqM); Albumin 3.9 g/dL (3.5-5.0); Alkaline Phosphatase 101 U/L (38-126); Anion Gap 8 mmol/L; Blood Urea Nitrogen 49 mg/dL (7-17); Calcium 8.8 mg/dL (8.4-10.2); Carbon Dioxide 30 mmol/L (22-30); Chloride 102 mmol/L (98-107); Non-African American GFR(CKD) 36 (>60 ml/min/1.73 sqM); Potassium 4.6 mmol/L (3.5-5.1); Sodium 140 mmol/L (137-145); Total Bilirubin 0.4 mg/dL (0.2-1.3); Total Protein 6.8 g/dL (6.3-8.2)
[2024-05-28 21:26] LABS: NT-Pro-B-Type Natriuretic Pept 5560 pg/mL
[2024-05-28 21:48] LABS: Glucose 29 mg/dL (74-99)
[2024-05-28 21:52] LABS: Glucose,Whole Blood 26 mg/dL (70-110)
[2024-05-28] MEDS: DEXTROSE 50% SYRINGE 50 ML IVP STA (21:58)
[2024-05-28] MEDS: IPRATROPIUM-ALBUTEROL 3 ML NEB INHALATION STA (22:05)
[2024-05-28] MEDS: FUROSEMIDE 10 MG/ML 4 ML VIAL IV STA (22:33)
[2024-05-28 22:43] LABS: Glucose,Whole Blood 123 mg/dL (70-110)
[2024-05-28] MEDS: ASPIRIN 325 MG TAB PO STA (22:43)
[2024-05-28] MEDS: DEXAMETHASONE SOD PHOSPHATE 10 MG/ML 1 ML VIAL IV STA (23:17)
[2024-05-28 23:18] LABS: Glucose,Whole Blood 81 mg/dL (70-110)
[2024-05-29 00:33] LABS: Glucose,Whole Blood 38 mg/dL (70-110)
[2024-05-29 01:18] LABS: Appearance,Urine Cloudy (Clear); Bacteria,Urine Rare /hpf; Bilirubin,Urine Negative (Negative); Blood,Urine Negative (Negative); Budding Yeast,Urine Rare /hpf; Color,Urine Colorless; Glucose,Urine (UA) Negative (Negative); Hyaline Casts,Urine 10 /lpf (0-2); Ketones,Urine Negative (Negative); Leukocyte Esterase,Urine Large (Negative); Mucus,Urine Rare /hpf; Nitrite,Urine Negative (Negative); PH, Urine 5.5 (5.0-8.0); Protein,Urine Negative (Negative); RBC,Urine <1 /hpf (0-5); Specific Gravity,Urine 1.009 (1.001-1.035); Squamous Epithelial Cell,Urine 12 /hpf (0-4); Urobilinogen,Urine <2.0 mg/dL (<2.0); WBC,Urine 11 /hpf (0-5)
[2024-05-29 02:22] LABS: Glucose,Whole Blood 138 mg/dL (70-110)
--- NOTE | 2024-05-29 03:56 | P.HPIM ---
History of Present Illness H&P Date: 05/29/24 Patient is a 64-year-old female with a PMH of A-fib on Xarelto, systolic CHF with EF 45 to 50% on echo from 03/18, COPD, type II DM, hypertension, hyperlipidemia, hypothyroidism, who presents to the emergency room with complaints of shortness of breath. Patient reports that her legs also been progressively getting more swollen which is also accompanied by bilateral leg pain. The patient was noted to have anemia of 8.4 down from previously 10.01- year ago. The patient denied experiencing melena or bright red blood per stool or bleeding elsewhere. She denied experiencing chest discomfort, fever, chills, cough, nausea, vomiting, abdominal pain, diarrhea. Chest x-ray in emergency room was unremarkable with EKG showing sinus rhythm at 63 bpm with an incomplete right bundle branch block as reviewed by me. Laboratory evaluation did reveal hyperglycemia of 29 upon admission with hemoglobin 8.4, BUN 49, creatinine 1.53, with respiratory viral panel negative. ED documentation reviewed and case discussed with ED provider. Review of systems: Pertinent positives and negatives as discussed in HPI, a complete review of systems was performed and all other systems are negative. Physical examination: Vital signs reviewed General: Appears older than stated age, normal weight Derm: no unusual rashes/lesions, warm Head: atraumatic, normocephalic, symmetric Eyes: EOMI, no lid lag, anicteric sclera, pupils equal round reactive to light ENT: Nose and ears atraumatic Neck: No cervical lymphadenopathy, trachea midline, supple Mouth: no lip lesion, mucus membranes moist Cardiovascular: S1S2 reg, systolic murmur apprecited, positive dorsalis pedis pulse bilateral, 2+ bilateral lower extremity pitting edema Lungs: CTA bilateral, no rhonchi, no rales, no accessory muscle use Abdominal: soft, nontender to palpation, no guarding Ext: muscle strength 5 out of 5 in all 4 extremities grossly, no gross muscle atrophy, no contractures, Neuro: CN II-XI grossly intact, no gross focal neuro deficits Psych: Alert, oriented, appropriate affect Assessment: Acute systolic CHF exacerbation VI on CKD Hypoglycemia Normocytic anemia Imaging: Chest x-ray in emergency room was unremarkable with EKG showing sinus rhythm at 63 bpm with an incomplete right bundle branch block as reviewed by me. Data Review: Laboratory evaluation did reveal hyperglycemia of 29 upon admission with hemoglobin 8.4, BUN 49, creatinine 1.53, with respiratory viral panel negative. Plan: Continue with Lasix IV 40 mg every 12 hourly Cardiology consult Intake and output Daily weights Monitor BMP Check anemia panel Resume home medications once reconciled Hypoglycemic protocol DVT prophylaxis: Xarelto The patient is admitted with an anticipated greater than 2 midnight stay for evaluation of CHF CODE STATUS: Full Code Discussed with: Patient Anticipated discharge place: Home Past Medical History Past Medical History: Atrial Fibrillation, Asthma, COPD, Diabetes Mellitus, Fibromyalgia, GERD/Reflux, Hyperlipidemia, Hypertension, Thyroid Disorder, Vascular Disorder Additional Past Medical History / Comment(s): Restless leg syndrom. COVID 02/03/22 History of Any Multi-Drug Resistant Organisms: None Reported Past Surgical History: Heart Catheterization With Stent, Pacemaker, Tubal Ligation Additional Past Surgical History / Comment(s): BI VENTRICULAR PACER. THY ROIDECTOMY, CTR-RT WRIST, Cataract surgery R/L eye., one cardiac stent Past Anesthesia/Blood Transfusion Reactions: Postoperative Nausea & Vomiting (PONV) Date of Last Stent Placement:: unknown Type of Cardiac Device: Biventricular Pacemaker Device Placement Date:: 07/29/2020 Past Psychological History: No Psychological Hx Reported Smoking Status: Former smoker Past Alcohol Use History: Rare Past Drug Use History: None Reported - Past Family History Son(s) Additional Family Medical History / Comment(s): BLINDNESS FROM DIABETES. Father Family Medical History: Cancer Medications and Allergies Home Medications Medication Instructions Recorded Confirmed Type glipiZIDE [Glucotrol] 10 mg PO BID 08/26/15 02/23/23 History traMADol HCL [Ultram] 50 mg PO QID 09/23/17 02/23/23 History Insulin Detemir [Levemir Flextouch 30 - 50 units SQ HS 07/28/20 02/23/23 History Pen] Pantoprazole Sodium 40 mg PO DAILY 07/28/20 02/23/23 History Potassium Chloride [Klor-Con 20] 20 meq PO DAILY 07/28/20 02/23/23 History Fluticasone/Umeclidin/Vilanter 1 puff INHALATION RT-DAILY 01/18/22 02/23/23 History [Trelegy Ellipta 200-62.5-25] metFORMIN HCL 1,000 mg PO BID 01/18/22 02/23/23 History Insulin Aspart [NovoLOG Flexpen] See Protocol SQ AC-TID 02/23/23 02/23/23 History Levothyroxine Sodium [Synthroid] 137 mcg PO DAILY 02/23/23 02/23/23 History Metoprolol Succinate (ER) [Toprol 100 mg PO BID 02/23/23 02/23/23 History XL] clonazePAM [KlonoPIN] 0.5 mg PO HS PRN 02/23/23 02/23/23 History rOPINIRole HCL 10 mg PO HS 02/23/23 02/23/23 History Aspirin 81 mg PO DAILY #30 tab 02/26/23 Rx Atorvastatin [Lipitor] 80 mg PO DAILY #30 tab 02/26/23 Rx Clopidogrel [Plavix] 75 mg PO DAILY #30 tab 02/26/23 Rx Losartan-Hctz 50-12.5 mg [Hyzaar 1 each PO DAILY #30 tab 02/26/23 Rx 50-12.5] Nitroglycerin Sl Tabs [Nitrostat] 0.4 mg SUBLINGUAL Q5M PRN #20 tab 02/26/23 Rx Rivaroxaban [Xarelto] 20 mg PO W/SUPPER #30 tab 02/26/23 Rx Allergies Allergy/AdvReac Type Severity Reaction Status Date / Time latex Allergy Rash/Hives Verified 05/28/24 18:50 Physical Exam Vitals: Vital Signs Temp Pulse Resp BP Pulse Ox 05/29/24 02:20 64 18 137/52 98 05/28/24 23:18 98.3 F 60 17 137/54 95 05/28/24 22:10 59 L 05/28/24 22:07 60 05/28/24 22:00 60 18 140/57 98 05/28/24 19:53 20 05/28/24 19:46 65 18 146/58 94 L 05/28/24 18:47 98.1 F 77 22 108/69 92 L Intake and Output 05/28/24 05/28/24 05/29/24 14:59 22:59 06:59 Other: Weight 68.039 kg Results CBC & Chem 7: 05/28/24 19:39 05/28/24 20:34 Labs: Abnormal Lab Results - Last 24 Hours (Table) 05/28/24 05/28/24 05/28/24 Range/Units 19:39 20:34 21:50 RBC 3.22 L (3.80-5.40) m/uL Hgb 8.4 L (11.4-16.0) gm/dL Hct 27.9 L (34.0-46.0) % MCHC 30.2 L (31.0-37.0) g/dL BUN 49 H (7-17) mg/dL Creatinine 1.53 H (0.52-1.04) mg/dL Glucose 29 L* (74-99) mg/dL POC Glucose (mg/dL) 26 L* (70-110) mg/dL Urine Appearance (Clear) Ur Leukocyte Esterase (Negative) Urine WBC (0-5) /hpf Ur Squamous Epith Cells (0-4) /hpf Urine Bacteria (None) /hpf Hyaline Casts (0-2) /lpf Urine Mucus (None) /hpf Urine Yeast (Budding) (None) /hpf 05/28/24 05/29/24 05/29/24 Range/Units 22:41 00:10 00:31 RBC (3.80-5.40) m/uL Hgb (11.4-16.0) gm/dL Hct (34.0-46.0) % MCHC (31.0-37.0) g/dL BUN (7-17) mg/dL Creatinine (0.52-1.04) mg/dL Glucose (74-99) mg/dL POC Glucose (mg/dL) 123 H 38 L* (70-110) mg/dL Urine Appearance Cloudy H (Clear) Ur Leukocyte Esterase Large H (Negative) Urine WBC 11 H (0-5) /hpf Ur Squamous Epith Cells 12 H (0-4) /hpf Urine Bacteria Rare H (None) /hpf Hyaline Casts 10 H (0-2) /lpf Urine Mucus Rare H (None) /hpf Urine Yeast (Budding) Rare H (None) /hpf 05/29/24 Range/Units 02:19 RBC (3.80-5.40) m/uL Hgb (11.4-16.0) gm/dL Hct (34.0-46.0) % MCHC (31.0-37.0) g/dL BUN (7-17) mg/dL Creatinine (0.52-1.04) mg/dL Glucose (74-99) mg/dL POC Glucose (mg/dL) 138 H (70-110) mg/dL Urine Appearance (Clear) Ur Leukocyte Esterase (Negative) Urine WBC (0-5) /hpf Ur Squamous Epith Cells (0-4) /hpf Urine Bacteria (None) /hpf Hyaline Casts (0-2) /lpf Urine Mucus (None) /hpf Urine Yeast (Budding) (None) /hpf
[2024-05-29 05:30] LABS: Glucose,Whole Blood 380 mg/dL (70-110)
[2024-05-29] MEDS: FUROSEMIDE 10 MG/ML 4 ML VIAL IV SCH (09:12)
[2024-05-29 09:17] LABS: Glucose,Whole Blood 423 mg/dL (70-110)
[2024-05-29] MEDS ORDERED: HYDROcodone/APAP 7.5-325MG 1 EACH TAB PO PRN (09:26)
[2024-05-29] MEDS ORDERED: DEXTROSE 50% SYRINGE 50 ML IVP PRN (09:29)
[2024-05-29 10:49] LABS: Glucose,Whole Blood 506 mg/dL (70-110)
[2024-05-29] MEDS: INSULIN DETEMIR (LEVEMIR) 100 UNIT/ML SYR SQ SCH (10:49)
[2024-05-29] MEDS: POTASSIUM CHLORIDE ER 20 MEQ TAB.ER PO SCH (11:03)
[2024-05-29] MEDS: DAPAGLIFLOZIN PROPANEDIOL 10 MG TABLET PO SCH (11:03)
[2024-05-29 11:06] LABS: % Iron Saturation 9.4 (12.00-45.00); Ferritin 34.1 ng/mL (10.0-291.0)
[2024-05-29 12:03] LABS: Glucose,Whole Blood 501 mg/dL (70-110)
[2024-05-29] MEDS: INSULIN ASPART (NovoLOG) 100 UNIT/ML VIAL SQ SCH (12:18)
--- NOTE | 2024-05-29 15:00 | P.CRDCN ---
History of Present Illness History of present illness: HISTORY OF PRESENT ILLNESS: This is a 64-year-old female with a past medical history significant for coronary artery disease, atrial fibrillation, peripheral vascular disease, hypertension, hyperlipidemia, diabetes, and valvular heart disease. Patient follows in the office with Dr. Mendez. We have been asked to see the patient in consultation for congestive heart failure. Patient examined at the bedside in the emergency room. Patient states she has been feeling short of breath for the past week. She states initially she thought it was her COPD acting up. She states that she was taking her nebulizer treatments at home and using her inhaler without much relief. She reports some heaviness in her chest as well. She states just walking to the bathroom she is winded and out of breath. She reports that she has been taking her Lasix and has been compliant with a low- sodium diet. Patient was found to be in CHF and was started on IV diuretics. Patient continues to report shortness of breath although improved. DIAGNOSTICS: - EKG reveals sinus mechanism with ST elevation in aVR and V1. Incomplete right bundle branch block. Diffuse ST segment depression. EKG abnormalities seen on previous EKGs. - Chest xray negative for acute process - Laboratory data: WBC 8.8. Hemoglobin 8.4. Platelet count 391. D-dimer 0.34. Sodium 140. Potassium 4.6. BUN 49. Creatinine 1.53. Troponin 0.022. proBNP 5560. - Current home cardiac medications include Lipitor 80 mg at night, Plavix 75 mg daily, Lasix 20 mg twice a day, metoprolol succinate 100 mg twice a day, losartan 50 mg daily, Xarelto 20 mg daily. - Most recent echocardiogram obtained in the office in November 2023 revealed ejection fraction 52%, moderate MR, mild to moderate TR, moderate , peak 43 mmHg and mean 21 mmHg - Cardiac catheterization history: February 2023 with stenting to the OM1 REVIEW OF SYSTEMS: At the time of my exam: CONSTITUTIONAL: Denies fever or chills. HEENT: Denies blurred vision, vision changes, or eye pain. Denies hemoptysis CARDIOVASCULAR: Denies chest pain. Denies orthopnea. Denies PND. Denies palpitations RESPIRATORY: Denies shortness of breath. GASTROINTESTINAL: Denies abdominal pain. Denies nausea or vomiting. HEMATOLOGIC: Denies bleeding disorders. GENITOURINARY: Denies any blood in urine. SKIN: Denies pruitis. Denies rash. PHYSICAL EXAM: VITAL SIGNS: Reviewed. GENERAL: Well-developed in no acute distress. HEENT: Head is normocephalic. Pupils are equal, round. Sclerae anicteric. Mucous membranes of the mouth are moist. Neck supple. No JVD or thyromegaly LUNGS: Respirations even and unlabored. Lungs diminished with bibasilar crackles. HEART: Regular rate and rhythm. S1 and S2 heard. Systolic murmur noted. ABDOMEN: Soft. Nondistended. Nontender. EXTREMITIES: Normal range of motion. No clubbing or cyanosis. Peripheral pulses intact. 2+ pitting bilateral lower extremity edema NEUROLOGIC: Awake and alert. Oriented x 3. ASSESSMENT: Shortness of breath Acute on chronic heart failure with preserved EF, 52% in 11/2023 Acute kidney injury Valvular heart disease including moderate MR, mild to moderate TR, and moderate Coronary artery disease with previous stenting, most recently to OM1 in 02/2023 Paroxysmal atrial fibrillation Peripheral vascular disease Hypertension Hyperlipidemia Diabetes with labile blood sugars ranging from 29-501 COPD PLAN: Obtain 2D echo to assess cardiac structure and function Resume home cardiac medications Continue anticoagulation with Xarelto Continue IV Lasix 40 mg twice a day Daily weights, accurate intake and output, monitoring of kidney function Add Farxiga 10 mg daily Further recommendations pending patient course Nurse practitioner note has been reviewed by physician. Signing provider agrees with the documented findings, assessment, and plan of care documented by [employer] P[employer]PECT[employer] HEL[employer] as a scribe. Past Medical History Past Medical History: Atrial Fibrillation, Asthma, COPD, Diabetes Mellitus, Fibromyalgia, GERD/Reflux, Hyperlipidemia, Hypertension, Thyroid Disorder, Vascular Disorder Additional Past Medical History / Comment(s): Restless leg syndrom. COVID 02/03/22 History of Any Multi-Drug Resistant Organisms: None Reported Past Surgical History: Heart Catheterization With Stent, Pacemaker, Tubal Ligation Additional Past Surgical History / Comment(s): BI VENTRICULAR PACER. THYROIDECTOMY, CTR-RT WRIST, Cataract surgery R/L eye., one cardiac stent Past Anesthesia/Blood Transfusion Reactions: Postoperative Nausea & Vomiting (PONV) Date of Last Stent Placement:: unknown Type of Cardiac Device: Biventricular Pacemaker Device Placement Date:: 07/29/2020 Past Psychological History: No Psychological Hx Reported Smoking Status: Former smoker Past Alcohol Use History: Rare Past Drug Use History: None Reported - Past Family History Son(s) Additional Family Medical History / Comment(s): BLINDNESS FROM DIABETES. Father Family Medical History: Cancer Medications and Allergies Home Medications Medication Instructions Recorded Confirmed Type glipiZIDE [Glucotrol] 10 mg PO BID 08/26/15 05/29/24 History traMADol HCL [Ultram] 50 mg PO Q6H PRN 09/23/17 05/29/24 History Pantoprazole Sodium 40 mg PO DAILY 07/28/20 05/29/24 History Potassium Chloride [Klor-Con 20] 20 meq PO DIRECTED 07/28/20 05/29/24 History metFORMIN HCL 1,000 mg PO BID 01/18/22 05/29/24 History Insulin Aspart [NovoLOG Flexpen] See Protocol SQ ACHS 02/23/23 05/29/24 History Levothyroxine Sodium [Synthroid] 137 mcg PO DAILY 02/23/23 05/29/24 History Metoprolol Succinate (ER) [Toprol 100 mg PO BID 02/23/23 05/29/24 History XL] Atorvastatin [Lipitor] 80 mg PO DAILY #30 tab 02/26/23 05/29/24 Rx Clopidogrel [Plavix] 75 mg PO DAILY #30 tab 02/26/23 05/29/24 Rx Nitroglycerin Sl Tabs [Nitrostat] 0.4 mg SUBLINGUAL Q5M PRN #20 tab 02/26/23 05/29/24 Rx Albuterol Sulfate [Albuterol 2 puff PO RT-QID PRN 05/29/24 05/29/24 History Sulfate Hfa] Furosemide [Lasix] 20 mg PO BID 05/29/24 05/29/24 History HYDROcodone/APAP 7.5-325MG [[place] 1 tab PO Q6HR PRN 05/29/24 05/29/24 History 7.5-325] Insulin Glargine,Hum.rec.anlog 30 units SQ HS 05/29/24 05/29/24 History [Lantus Solostar Pen] Losartan [Cozaar] 50 mg PO DAILY 05/29/24 05/29/24 History Rivaroxaban [Xarelto] 20 mg PO DAILY 05/29/24 05/29/24 History Allergies Allergy/AdvReac Type Severity Reaction Status Date / Time latex Allergy Rash/Hives Verified 05/29/24 08:31 Physical Exam Vitals: Vital Signs Temp Pulse Resp BP Pulse Ox 05/29/24 12:20 64 18 116/58 98 05/29/24 12:16 64 18 116/54 99 05/29/24 10:41 65 18 125/46 97 05/29/24 09:09 97.5 F L 73 18 114/44 97 05/29/24 08:00 80 20 121/54 92 L 05/29/24 05:00 64 18 144/60 97 05/29/24 02:20 64 18 137/52 98 05/28/24 23:18 98.3 F 60 17 137/54 95 05/28/24 22:10 59 L 05/28/24 22:07 60 05/28/24 22:00 60 18 140/57 98 05/28/24 19:53 20 05/28/24 19:46 65 18 146/58 94 L 05/28/24 18:47 98.1 F 77 22 108/69 92 L Intake and Output 05/28/24 05/29/24 05/29/24 22:59 06:59 14:59 Other: Weight 68.039 kg Results 05/28/24 19:39 05/28/24 20:34 Cardiac Enzymes 05/28/24 05/28/24 Range/Units 19:39 20:34 AST 33 (14-36) U/L Troponin I 0.022 (0.000-0.034) ng/mL Coagulation 05/28/24 Range/Units 19:39 PT 11.0 (10.0-12.5) sec APTT 29.6 (22.0-30.0) sec CBC 05/28/24 Range/Units 19:39 WBC 8.8 (3.8-10.6) k/uL RBC 3.22 L (3.80-5.40) m/uL Hgb 8.4 L (11.4-16.0) gm/dL Hct 27.9 L (34.0-46.0) % Plt Count 391 (150-450) k/uL Comprehensive Metabolic Panel 05/28/24 Range/Units 20:34 Sodium 140 (137-145) mmol/L Potassium 4.6 (3.5-5.1) mmol/L Chloride 102 (98-107) mmol/L Carbon Dioxide 30 (22-30) mmol/L BUN 49 H (7-17) mg/dL Creatinine 1.53 H (0.52-1.04) mg/dL Glucose 29 L* (74-99) mg/dL Calcium 8.8 (8.4-10.2) mg/dL AST 33 (14-36) U/L ALT 24 (4-34) U/L Alkaline Phosphatase 101 (38-126) U/L Total Protein 6.8 (6.3-8.2) g/dL Albumin 3.9 (3.5-5.0) g/dL Current Medications Generic Name Dose Route Start Last Admin Trade Name Freq PRN Reason Stop Dose Admin Hydrocodone Bitart/Acetaminophen 1 each 05/29/24 09:26 Hydrocodone/Apap 7.5-325mg 1 Each Tab PO Q6HR PRN Moderate Pain (Scale 4 to 6) Atorvastatin Calcium 80 mg 05/30/24 09:00 Atorvastatin 80 Mg Tab PO DAILY [facility] Clopidogrel Bisulfate 75 mg 05/30/24 09:00 Clopidogrel 75 Mg Tab PO DAILY [facility] Dapagliflozin 10 mg 05/29/24 10:00 05/29/24 11:03 Dapagliflozin Propanediol 10 Mg Tablet PO 10 mg DAILY ANTONIA Administration Dextrose/Water 25 ml 05/29/24 09:29 Dextrose 50% Syringe 50 Ml IVP PER PROTOCOL PRN Hypoglycemia Protocol Dextrose/Water 50 ml 05/29/24 09:29 Dextrose 50% Syringe 50 Ml IVP PER PROTOCOL PRN Hypoglycemia Protocol Furosemide 40 mg 05/29/24 09:00 05/29/24 09:12 Furosemide 10 Mg/Ml 4 Ml Vial IV 40 mg Q12HR ANTONIA Administration Glipizide 10 mg 05/29/24 21:00 Glipizide 10 Mg Tab PO BID [facility] Insulin Aspart 0 unit 05/29/24 12:30 05/29/24 12:18 Insulin Aspart (Novolog) 100 Unit/Ml Vial SQ 18 unit ACHS [facility] Administration Protocol Insulin Detemir 30 unit 05/29/24 09:29 05/29/24 10:49 Insulin Detemir (Levemir) 100 Unit/Ml Syr SQ 30 unit DAILY@0700 [facility] Administration Levothyroxine Sodium 137 mcg 05/30/24 06:30 Levothyroxine 137 Mcg Tab PO DAILY@0630 [facility] Losartan Potassium 50 mg 05/30/24 09:00 Losartan 50 Mg Tab PO DAILY [facility] Metformin HCl 1,000 mg 05/29/24 17:30 Metformin 500 Mg Tab PO BID-W/MEALS [facility] Metoprolol Succinate 100 mg 05/29/24 21:00 Metoprolol Succinate (Er) 100 Mg Tab.Er.24h PO BID [facility] Pantoprazole Sodium 40 mg 05/30/24 07:30 Pantoprazole Sodium 40 Mg Granule Pkt PO AC-BRKFST [facility] Potassium Chloride 20 meq 05/29/24 09:30 05/29/24 11:03 Potassium Chloride Er 20 Meq Tab.Er PO 20 meq DAILY [facility] Administration Rivaroxaban 15 mg 05/30/24 09:00 Rivaroxaban 15 Mg Tab PO DAILY [facility] Protocol Tramadol HCl 50 mg 05/29/24 09:26 Tramadol 50 Mg Tab PO Q6H PRN Pain Intake and Output 05/28/24 05/29/24 05/29/24 22:59 06:59 14:59 Other: Weight 68.039 kg 05/28/24 19:39 05/28/24 20:34
[2024-05-29] MEDS: traMADol 50 MG TAB PO PRN (15:41)
[2024-05-29 17:15] LABS: Glucose,Whole Blood 341 mg/dL (70-110)
[2024-05-29] MEDS: metFORMIN 500 MG TAB PO SCH (17:59)
--- NOTE | 2024-05-29 18:21 | CA ---
Transthoracic Echo Report Name: Rebekah Osman Age: 64 Gender: F : 1960 Exam Date: 05/29/2024 16:16 Exam Location: [facility] Ht (in): 64 Wt (lb): 150 Ordering Physician: Dara Richard Attending/Referring Phys: [id number], Jose Manuel Steward/Stewardess Deck Ene Joe, KAILYN Procedure CPT: Indications: LV function, CHF, valvular heart disease Cardiac Hx: Technical Quality: Contrast 1: Total Dose (mL): Contrast 2: Total Dose (mL): MEASUREMENTS (Male / Female) Normal Values 2D ECHO LV Diastolic Diameter PLAX 5.3 cm 4.2 - 5.9 / 3.9 - 5.3 cm LV Systolic Diameter PLAX 3.2 cm IVS Diastolic Thickness 1.0 cm 0.6 - 1.0 / 0.6 - 0.9 cm LVPW Diastolic Thickness 1.1 cm 0.6 - 1.0 / 0.6 - 0.9 cm LV Relative Wall Thickness 0.4 RV Internal Dim ED PLAX 2.8 cm LVOT Diameter 1.9 cm LA Systolic Diameter LX 4.5 cm 3.0 - 4.0 / 2.7 - 3.8 cm LV Diastolic Volume MOD 4C 106.1 cm??? LV Systolic Volume MOD 4C 47.5 cm??? LV Ejection Fraction MOD 4C 55.2 % LV Diastolic Length 4C 7.6 cm LV Systolic Length 4C 6.7 cm LV Diastolic Volume MOD 2C 109.2 cm??? LV Systolic Volume MOD 2C 54.3 cm??? LV Ejection Fraction MOD 2C 50.3 % LV Diastolic Length 2C 7.8 cm LV Systolic Length 2C 6.3 cm M-MODE Aortic Root Diameter MM 3.3 cm DOPPLER AV Peak Velocity 320.6 cm/s AV Peak Gradient 41.1 mmHg AV Mean Velocity 234.7 cm/s AV Mean Gradient 24.5 mmHg AV Velocity Time Integral 90.4 cm LVOT Peak Velocity 94.6 cm/s LVOT Peak Gradient 3.6 mmHg LVOT Velocity Time Integral 27.2 cm LVOT Stroke Volume 80.6 cm??? LVOT Stroke Volume Index 46.5 ml/m??? AV Area Cont Eq vti 0.9 cm??? AV Area Cont Eq pk 0.9 cm??? Mitral E Point Velocity 179.2 cm/s Mitral A Point Velocity 99.7 cm/s Mitral E to A Ratio 1.8 MV Deceleration Time 211.1 ms TR Peak Velocity 370.9 cm/s TR Peak Gradient 55.0 mmHg Right Ventricular Systolic Press 65.0 mmHg FINDINGS Left Ventricle Left ventricular ejection fraction is estimated at 50 %. Mildly increased septal wall thickness. Mildly increased posterior wall thickness. Left ventricular cavity size normal. Right Ventricle Normal right ventricular size. Severe pulmonary hypertension. Right ventricular systolic pressure estimated at 65 mm hg. Right Atrium Normal right atrial size. No right atrial thrombus or mass seen. Left Atrium Moderately increased left atrial diameter. No left atrial thrombus or mass present. Mitral Valve Mitral valve thickened. Moderate mitral annular calcification. Mild mitral regurgitation. Mild mitral stenosis. Aortic Valve Diffuse thickening of the aortic valve cusps with reduced excursion. Moderate aortic stenosis with a peak gradient of 41 mmHg and a mean gradient of 25 mmHg. Tricuspid Valve Structurally normal tricuspid valve. Mild tricuspid regurgitation. Pulmonic Valve Structurally normal pulmonic valve. Trace to mild pulmonic regurgitation. Pericardium No pericardial or pleural effusion. Aorta Normal size aortic root and proximal ascending aorta. CONCLUSIONS Technically difficult study for interpretation. Poorly visualized endocardium Low normal LV systolic function with EF at 50% Moderate mitral annular calcifications with mild MR and mild MS Aortic sclerosis with moderate stenosis and mean gradient of 25 mmHg Severe pulmonary hypertension Previewed by: Dr. Anibal Gruber MD (Electronically Signed) Final Date: 29 May 2024 18:19
[2024-05-29 20:17] LABS: Glucose,Whole Blood 221 mg/dL (70-110)
[2024-05-29] MEDS: METOPROLOL SUCCINATE (ER) 100 MG TAB.ER.24H PO SCH (20:24)
[2024-05-29] MEDS: glipiZIDE 10 MG TAB PO SCH (20:24)
[2024-05-30 00:14] LABS: Glucose,Whole Blood 29 mg/dL (70-110)
[2024-05-30] MEDS: DEXTROSE 50% SYRINGE 50 ML IVP PRN (00:15)
[2024-05-30 00:33] LABS: Glucose,Whole Blood 97 mg/dL (70-110)
[2024-05-30 03:06] LABS: Glucose,Whole Blood 208 mg/dL (70-110)
[2024-05-30 06:01] LABS: Glucose,Whole Blood 220 mg/dL (70-110)
[2024-05-30] MEDS: LEVOTHYROXINE 137 MCG TAB PO SCH (06:18)
[2024-05-30 08:37] LABS: Glucose,Whole Blood 316 mg/dL (70-110)
[2024-05-30] MEDS: CLOPIDOGREL 75 MG TAB PO SCH (08:48)
[2024-05-30] MEDS: RIVAROXABAN 15 MG TAB PO SCH (08:49)
[2024-05-30] MEDS: LOSARTAN 50 MG TAB PO SCH (08:49)
[2024-05-30] MEDS: PANTOPRAZOLE SODIUM 40 MG GRANULE PKT PO SCH (08:49)
[2024-05-30] MEDS: ATORVASTATIN 80 MG TAB PO SCH (08:49)
[2024-05-30 10:07] LABS: Blood Urea Nitrogen 67.2 mg/dL (9.0-27.0); Carbon Dioxide 27.4 mmol/L (21.6-31.8); Chloride 95 mmol/L (96-109); Glucose 169 mg/dL (70-110); Potassium 4.9 mmol/L (3.5-5.5); Sodium 136 mmol/L (135-145)
--- NOTE | 2024-05-30 11:02 | P.PN ---
Subjective Progress Note Date: 05/30/24 Principal diagnosis: Ms. Osman is a 64-year-old female with past medical history of atrial fibrillation on Xarelto, heart failure with mild reduction in EF with LVEF of 4550% COPD type 2 diabetes who presented to the hospital with shortness of breath. She reported her legs being more swollen accompanied by lower leg pain. She was noted be hyperglycemic in the ER with a blood glucose of 29 and was given 10 mg of IV dexamethasone Patient seen and examined. She was liberated from nasal cannula she is on room air. She reports her breathing is much better but she still expresses lower extremity edema Objective - Vital Signs Vital signs: Vital Signs Temp 98.4 F 05/30/24 08:22 Pulse 64 05/30/24 08:22 Resp 18 05/30/24 08:22 BP 132/64 05/30/24 08:22 Pulse Ox 92 L 05/30/24 08:22 FiO2 Intake & Output 05/29/24 05/30/24 05/30/24 18:59 06:59 18:59 Weight 75.8 kg - Exam General: Appears older than stated age, female, pleasant Derm: no unusual rashes/lesions, warm Head: atraumatic, normocephalic, symmetric Eyes: EOMI, no lid lag, anicteric sclera, pupils equal round reactive to light ENT: Nose and ears atraumatic Neck: No cervical lymphadenopathy, trachea midline, supple Mouth: no lip lesion, mucus membranes moist Cardiovascular: S1S2 reg, systolic murmur apprecited, positive dorsalis pedis pulse bilateral, 1+ bilateral lower extremity pitting edema Lungs: CTA bilateral, no rhonchi, no rales, no accessory muscle use, on room air Abdominal: soft, nontender to palpation, no guarding Ext: muscle strength 5 out of 5 in all 4 extremities grossly, no gross muscle atrophy, no contractures, Neuro: Moving all extremity spontaneously Psych: Alert, oriented, appropriate affec - Labs CBC & Chem 7: 05/28/24 19:39 05/30/24 04:33 Labs: Abnormal Lab Results - Last 24 Hours (Table) 05/29/24 05/29/24 05/29/24 Range/Units 04:22 12:01 17:07 Chloride (96-109) mmol/L Anion Gap (4.00-12.00) mmol/L BUN (9.0-27.0) mg/dL Creatinine (0.6-1.5) mg/dL Est GFR (CKD-EPI) (>=60) BUN/Creatinine Ratio (12.00-20.00) Ratio Glucose (70-110) mg/dL POC Glucose (mg/dL) 501 H* 341 H (70-110) mg/dL Hemoglobin A1c (<=6.0) % Iron 44 L (50-170) UG/DL TIBC 468 H (228-460) UG/DL % Saturation 9.40 L (12.00-45.00) 05/29/24 05/30/24 05/30/24 Range/Units 20:16 00:10 03:04 Chloride (96-109) mmol/L Anion Gap (4.00-12.00) mmol/L BUN (9.0-27.0) mg/dL Creatinine (0.6-1.5) mg/dL Est GFR (CKD-EPI) (>=60) BUN/Creatinine Ratio (12.00-20.00) Ratio Glucose (70-110) mg/dL POC Glucose (mg/dL) 221 H 29 L* 208 H (70-110) mg/dL Hemoglobin A1c (<=6.0) % Iron (50-170) UG/DL TIBC (228-460) UG/DL % Saturation (12.00-45.00) 05/30/24 05/30/24 05/30/24 Range/Units 04:33 04:33 06:00 Chloride 95 L (96-109) mmol/L Anion Gap 13.60 H (4.00-12.00) mmol/L BUN 67.2 H (9.0-27.0) mg/dL Creatinine 2.0 H (0.6-1.5) mg/dL Est GFR (CKD-EPI) 28 L (>=60) BUN/Creatinine Ratio 33.60 H (12.00-20.00) Ratio Glucose 169 H (70-110) mg/dL POC Glucose (mg/dL) 220 H (70-110) mg/dL Hemoglobin A1c 7.1 H (<=6.0) % Iron (50-170) UG/DL TIBC (228-460) UG/DL % Saturation (12.00-45.00) 05/30/24 Range/Units 08:31 Chloride (96-109) mmol/L Anion Gap (4.00-12.00) mmol/L BUN (9.0-27.0) mg/dL Creatinine (0.6-1.5) mg/dL Est GFR (CKD-EPI) (>=60) BUN/Creatinine Ratio (12.00-20.00) Ratio Glucose (70-110) mg/dL POC Glucose (mg/dL) 316 H (70-110) mg/dL Hemoglobin A1c (<=6.0) % Iron (50-170) UG/DL TIBC (228-460) UG/DL % Saturation (12.00-45.00) Assessment and Plan Assessment: #) Acute heart failure with mildly reduced EF with LVEF noted to be 50% with prior echocardiogram noted to be 45 to 50%. Continue IV Lasix 40 mg twice daily. #) Coronary artery disease with previous stenting. Continue clopidogrel 75 mg daily continue atorvastatin 80 mg daily #) Paroxysmal atrial fibrillation on xarelto. Continue metoprolol succinate 100 mg twice daily. Continue Xarelto 50 mg daily for thromboembolic risk reduction #) COPD #) Dm2 on insulin A1c noted to be 7.1% continue Levemir 30 units daily with high intensity sliding scale insulin ACH S. Farxiga 10 mg daily added for volume control for heart failure along with type 2 diabetes management #) Primary htn. Continue losartan 50 mg daily Position: Anticipate discharge home tomorrow. Monitor serum creatinine which is increased compared to baseline Time with Patient: Greater than 30
--- NOTE | 2024-05-30 12:20 | P.PN ---
Subjective Progress Note Date: 05/30/24 This is a 64-year-old female with a past medical history significant for coronary artery disease, atrial fibrillation, peripheral vascular disease, hypertension, hyperlipidemia, diabetes, and valvular heart disease. Patient follows in the office with Dr. Mendez. We have been asked to see the patient in consultation for congestive heart failure. Patient examined at the bedside in the emergency room. Patient states she has been feeling short of breath for the past week. She states initially she thought it was her COPD acting up. She states that she was taking her nebulizer treatments at home and using her inhaler without much relief. She reports some heaviness in her chest as well. She states just walking to the bathroom she is winded and out of breath. She reports that she has been taking her Lasix and has been compliant with a low- sodium diet. Patient was found to be in CHF and was started on IV diuretics. Patient continues to report shortness of breath although improved. DIAGNOSTICS: - EKG reveals sinus mechanism with ST elevation in aVR and V1. Incomplete right bundle branch block. Diffuse ST segment depression. EKG abnormalities seen on previous EKGs. - Chest xray negative for acute process - Laboratory data: WBC 8.8. Hemoglobin 8.4. Platelet count 391. D-dimer 0.34. Sodium 140. Potassium 4.6. BUN 49. Creatinine 1.53. Troponin 0.022. proBNP 5560. - Current home cardiac medications include Lipitor 80 mg at night, Plavix 75 mg daily, Lasix 20 mg twice a day, metoprolol succinate 100 mg twice a day, losartan 50 mg daily, Xarelto 20 mg daily. - Most recent echocardiogram obtained in the office in November 2023 revealed ejection fraction 52%, moderate MR, mild to moderate TR, moderate , peak 43 mmHg and mean 21 mmHg - Cardiac catheterization history: February 2023 with stenting to the OM1 05/30/2024 Echocardiogram showed low normal LV systolic function with ejection fraction of 50% and a technically difficult study with moderate aortic stenosis, mean gradient 25 mmHg and severe pulmonary hypertension PA pressure 65 mmHg. She is overall feeling a bit better. Her breathing has improved somewhat but she remains short of breath. She continues on IV Lasix. Labs this morning show worsening renal function with a creatinine of 2.0. PHYSICAL EXAM: VITAL SIGNS: Reviewed. GENERAL: Well-developed in no acute distress. HEENT: Head is normocephalic. Pupils are equal, round. Sclerae anicteric. Mucous membranes of the mouth are moist. Neck supple. No JVD or thyromegaly LUNGS: Respirations even and unlabored. Lungs diminished with bibasilar crackles. HEART: Regular rate and rhythm. S1 and S2 heard. Systolic murmur noted. ABDOMEN: Soft. Nondistended. Nontender. EXTREMITIES: Normal range of motion. No clubbing or cyanosis. Peripheral pulses intact. 1+ pitting bilateral lower extremity edema NEUROLOGIC: Awake and alert. Oriented x 3. ASSESSMENT: Shortness of breath Acute on chronic heart failure with preserved EF, 50% Acute kidney injury, worsening Moderate Coronary artery disease with previous stenting, most recently to OM1 in 02/2023 Paroxysmal atrial fibrillation, maintaining sinus mechanism Peripheral vascular disease Hypertension Hyperlipidemia Diabetes with labile blood sugars ranging from 29-501 COPD PLAN: From cardiology's perspective we will hold IV Lasix. Continue Farxiga. Recheck renal function in the morning. Continue to monitor daily weights as well as intake and output. We will continue to follow the patient and provide further recommendations accordingly. BREWING TECHNICIAN note has been reviewed, I agree with a documented findings and plan of care. Patient was seen and examined. Objective - Vital Signs Vital signs: Vital Signs Temp 98.4 F 05/30/24 08:22 Pulse 64 05/30/24 08:22 Resp 18 05/30/24 08:22 BP 132/64 05/30/24 08:22 Pulse Ox 92 L 05/30/24 08:22 FiO2 Intake & Output 05/29/24 05/30/24 05/30/24 18:59 06:59 18:59 Weight 75.8 kg - Labs CBC & Chem 7: 05/28/24 19:39 05/30/24 04:33 Labs: Abnormal Lab Results - Last 24 Hours (Table) 05/29/24 05/29/24 05/29/24 Range/Units 04:22 12:01 17:07 Chloride (96-109) mmol/L Anion Gap (4.00-12.00) mmol/L BUN (9.0-27.0) mg/dL Creatinine (0.6-1.5) mg/dL Est GFR (CKD-EPI) (>=60) BUN/Creatinine Ratio (12.00-20.00) Ratio Glucose (70-110) mg/dL POC Glucose (mg/dL) 501 H* 341 H (70-110) mg/dL Hemoglobin A1c (<=6.0) % Iron 44 L (50-170) UG/DL TIBC 468 H (228-460) UG/DL % Saturation 9.40 L (12.00-45.00) 05/29/24 05/30/24 05/30/24 Range/Units 20:16 00:10 03:04 Chloride (96-109) mmol/L Anion Gap (4.00-12.00) mmol/L BUN (9.0-27.0) mg/dL Creatinine (0.6-1.5) mg/dL Est GFR (CKD-EPI) (>=60) BUN/Creatinine Ratio (12.00-20.00) Ratio Glucose (70-110) mg/dL POC Glucose (mg/dL) 221 H 29 L* 208 H (70-110) mg/dL Hemoglobin A1c (<=6.0) % Iron (50-170) UG/DL TIBC (228-460) UG/DL % Saturation (12.00-45.00) 05/30/24 05/30/24 05/30/24 Range/Units 04:33 04:33 06:00 Chloride 95 L (96-109) mmol/L Anion Gap 13.60 H (4.00-12.00) mmol/L BUN 67.2 H (9.0-27.0) mg/dL Creatinine 2.0 H (0.6-1.5) mg/dL Est GFR (CKD-EPI) 28 L (>=60) BUN/Creatinine Ratio 33.60 H (12.00-20.00) Ratio Glucose 169 H (70-110) mg/dL POC Glucose (mg/dL) 220 H (70-110) mg/dL Hemoglobin A1c 7.1 H (<=6.0) % Iron (50-170) UG/DL TIBC (228-460) UG/DL % Saturation (12.00-45.00) 05/30/24 Range/Units 08:31 Chloride (96-109) mmol/L Anion Gap (4.00-12.00) mmol/L BUN (9.0-27.0) mg/dL Creatinine (0.6-1.5) mg/dL Est GFR (CKD-EPI) (>=60) BUN/Creatinine Ratio (12.00-20.00) Ratio Glucose (70-110) mg/dL POC Glucose (mg/dL) 316 H (70-110) mg/dL Hemoglobin A1c (<=6.0) % Iron (50-170) UG/DL TIBC (228-460) UG/DL % Saturation (12.00-45.00)
[2024-05-30 12:37] LABS: Glucose,Whole Blood 267 mg/dL (70-110)
[2024-05-30 13:13] VITALS: BMI 28.6
[2024-05-30 17:19] LABS: Glucose,Whole Blood 143 mg/dL (70-110)
[2024-05-30 19:55] LABS: Glucose,Whole Blood 120 mg/dL (70-110)
[2024-05-31 02:04] LABS: Glucose,Whole Blood 202 mg/dL (70-110)
[2024-05-31 07:38] LABS: Glucose,Whole Blood 176 mg/dL (70-110)
[2024-05-31 10:49] LABS: BUN/Creat Ratio 30.52 Ratio (12.00-20.00); Blood Urea Nitrogen 64.1 mg/dL (9.0-27.0); Calcium 8.7 mg/dL (8.7-10.3); Carbon Dioxide 28.4 mmol/L (21.6-31.8); Chloride 101 mmol/L (96-109); Glucose 212 mg/dL (70-110); Potassium 5.1 mmol/L (3.5-5.5); Sodium 139 mmol/L (135-145)
--- NOTE | 2024-05-31 12:27 | P.PN ---
Subjective Progress Note Date: 05/31/24 This is a 64-year-old female with a past medical history significant for coronary artery disease, atrial fibrillation, peripheral vascular disease, hypertension, hyperlipidemia, diabetes, permanent pacemaker implantation, and valvular heart disease. Patient follows in the office with Dr. Mendez. We have been asked to see the patient in consultation for congestive heart failure. Patient examined at the bedside in the emergency room. Patient states she has been feeling short of breath for the past week. She states initially she thought it was her COPD acting up. She states that she was taking her nebulizer treatments at home and using her inhaler without much relief. She reports some heaviness in her chest as well. She states just walking to the bathroom she is winded and out of breath. She reports that she has been taking her Lasix and has been compliant with a low-sodium diet. Patient was found to be in CHF and was started on IV diuretics. Patient continues to report shortness of breath although improved. DIAGNOSTICS: - EKG reveals sinus mechanism with ST elevation in aVR and V1. Incomplete right bundle branch block. Diffuse ST segment depression. EKG abnormalities seen on previous EKGs. - Chest xray negative for acute process - Laboratory data: WBC 8.8. Hemoglobin 8.4. Platelet count 391. D-dimer 0.34. Sodium 140. Potassium 4.6. BUN 49. Creatinine 1.53. Troponin 0.022. proBNP 5560. - Current home cardiac medications include Lipitor 80 mg at night, Plavix 75 mg daily, Lasix 20 mg twice a day, metoprolol succinate 100 mg twice a day, losartan 50 mg daily, Xarelto 20 mg daily. - Most recent echocardiogram obtained in the office in November 2023 revealed ejection fraction 52%, moderate MR, mild to moderate TR, moderate , peak 43 mmHg and mean 21 mmHg - Cardiac catheterization history: February 2023 with stenting to the OM1 05/30/2024 Echocardiogram showed low normal LV systolic function with ejection fraction of 50% and a technically difficult study with moderate aortic stenosis, mean gradient 25 mmHg and severe pulmonary hypertension PA pressure 65 mmHg. She is overall feeling a bit better. Her breathing has improved somewhat but she remains short of breath. She continues on IV Lasix. Labs this morning show worsening renal function with a creatinine of 2.0. 05/31/2024 The patient was seen and examined sitting up in bed. Overall she feels her ce thing is unchanged. She does appear somewhat more dyspneic during my examination but patient feels its because she has been up ambulating around the room. She does verbalize feeling difficulty taking a deep breath. Labs this morning are pending. Lasix remains on hold. Continues on Plavix 75 mg daily, atorvastatin 80 mg p.o. daily, Farxiga 10 mg daily, glipizide 10 mg p.o. twice daily, Levemir and NovoLog, losartan 50 mg p.o. daily, metoprolol succinate 100 mg p.o. twice daily, and Xarelto 15 mg p.o. daily. PHYSICAL EXAM: VITAL SIGNS: Reviewed. GENERAL: Well-developed in no acute distress. HEENT: Head is normocephalic. Pupils are equal, round. Sclerae anicteric. Mucous membranes of the mouth are moist. Neck supple. No JVD or thyromegaly LUNGS: Respirations even and unlabored. Lungs diminished with bibasilar crackles. HEART: Regular rate and rhythm. S1 and S2 heard. Systolic murmur noted. ABDOMEN: Soft. Nondistended. Nontender. EXTREMITIES: Normal range of motion. No clubbing or cyanosis. Peripheral pulses intact. 1+ pitting bilateral lower extremity edema NEUROLOGIC: Awake and alert. Oriented x 3. ASSESSMENT: Shortness of breath Acute on chronic heart failure with preserved EF, 50% Acute kidney injury, worsening Moderate Coronary artery disease with previous stenting, most recently to [facility] in 02/2023 Paroxysmal atrial fibrillation, maintaining sinus mechanism Peripheral vascular disease Hypertension Hyperlipidemia Diabetes with labile blood sugars ranging from 29-501 COPD PLAN: From cardiology's determination on diuretics depending on pending labs. Continue to hold Lasix. Check BMP in the morning. We will obtain a CBC to recheck hemoglobin as it was 8.4 on admission. We will continue to follow the patient and provide further recommendations accordingly. BLOCKER AUTOMATIC note has been reviewed, I agree with a documented findings and plan of care. Patient was seen and examined. Objective - Vital Signs Vital signs: Vital Signs Temp 97.6 F 05/31/24 07:35 Pulse 60 05/31/24 07:35 Resp 14 05/31/24 07:35 BP 133/67 05/31/24 07:35 Pulse Ox 95 05/31/24 07:35 FiO2 Intake & Output 05/30/24 05/31/24 05/31/24 18:59 06:59 18:59 Intake Total 540 Balance 540 Weight 75.8 kg 74.2 kg Intake: Oral 540 Other: # Voids 2 - Labs CBC & Chem 7: 05/28/24 19:39 05/31/24 05:43 Labs: Abnormal Lab Results - Last 24 Hours (Table) 05/30/24 05/30/24 05/30/24 Range/Units 04:33 04:33 12:28 Chloride 95 L (96-109) mmol/L Anion Gap 13.60 H (4.00-12.00) mmol/L BUN 67.2 H (9.0-27.0) mg/dL Creatinine 2.0 H (0.6-1.5) mg/dL Est GFR (CKD-EPI) 28 L (>=60) BUN/Creatinine Ratio 33.60 H (12.00-20.00) Ratio Glucose 169 H (70-110) mg/dL POC Glucose (mg/dL) 267 H (70-110) mg/dL Hemoglobin A1c 7.1 H (<=6.0) % 05/30/24 05/30/24 05/31/24 Range/Units 17:14 19:54 02:02 Chloride (96-109) mmol/L Anion Gap (4.00-12.00) mmol/L BUN (9.0-27.0) mg/dL Creatinine (0.6-1.5) mg/dL Est GFR (CKD-EPI) (>=60) BUN/Creatinine Ratio (12.00-20.00) Ratio Glucose (70-110) mg/dL POC Glucose (mg/dL) 143 H 120 H 202 H (70-110) mg/dL Hemoglobin A1c (<=6.0) % 05/31/24 Range/Units 07:36 Chloride (96-109) mmol/L Anion Gap (4.00-12.00) mmol/L BUN (9.0-27.0) mg/dL Creatinine (0.6-1.5) mg/dL Est GFR (CKD-EPI) (>=60) BUN/Creatinine Ratio (12.00-20.00) Ratio Glucose (70-110) mg/dL POC Glucose (mg/dL) 176 H (70-110) mg/dL Hemoglobin A1c (<=6.0) % Microbiology - Last 24 Hours (Table) 05/29/24 00:10 Urine Culture - Final Urine,Voided
[2024-05-31 12:28] LABS: Glucose,Whole Blood 189 mg/dL (70-110)
[2024-05-31 13:17] LABS: Basophils % (A) 0 %; Eosinophils # (A) 0.4 k/uL (0-0.7); Eosinophils % (A) 5 %; HCT 25.7 % (34.0-46.0); HGB 7.6 gm/dL (11.4-16.0); Hypochromasia Marked; Lymphocytes # (A) 1.7 k/uL (1.0-4.8); Lymphocytes % (A) 20 %; MCH 26.2 pg (25.0-35.0); MCHC 29.6 g/dL (31.0-37.0); MCV 88.5 fL (80.0-100.0); Monocytes # (A) 0.7 k/uL (0-1.0); Monocytes % (A) 8 %; Neutrophils # (A) 5.5 k/uL (1.3-7.7); Neutrophils % (A) 65 %; Platelet Count 364 k/uL (150-450); RBC 2.91 m/uL (3.80-5.40); RDW 15.3 % (11.5-15.5); WBC 8.5 k/uL (3.8-10.6)
--- NOTE | 2024-05-31 14:15 | P.PN ---
Subjective Progress Note Date: 05/31/24 Principal diagnosis: Ms. Osman is a 64-year-old female with past medical history of atrial fibrillation on Xarelto, heart failure with mild reduction in EF with LVEF of 4550% COPD type 2 diabetes who presented to the hospital with shortness of breath. She reported her legs being more swollen accompanied by lower leg pain. She was noted be hyperglycemic in the ER with a blood glucose of 29 and was given 10 mg of IV dexamethasone. She had worsening renal function and Lasix was held Patient seen and examined. She was noted to be on oxygen however was able to remove the patient off oxygen and she was maintaining saturations of 98%. Her creatinine is noted be 2.1 this morning Objective - Vital Signs Vital signs: Vital Signs Temp 97.9 F 05/31/24 12:30 Pulse 58 L 05/31/24 12:30 Resp 16 05/31/24 12:30 BP 138/66 05/31/24 12:30 Pulse Ox 92 L 05/31/24 12:30 FiO2 Intake & Output 05/30/24 05/31/24 05/31/24 18:59 06:59 18:59 Intake Total 540 Balance 540 Weight 75.8 kg 74.2 kg Intake: Oral 540 Other: Voiding Method Toilet # Voids 2 - Exam General: Appears older than stated age, female, pleasant Derm: no unusual rashes/lesions, warm Head: atraumatic, normocephalic, symmetric Eyes: EOMI, no lid lag, anicteric sclera, pupils equal round reactive to light ENT: Nose and ears atraumatic Neck: No cervical lymphadenopathy, trachea midline, supple Mouth: no lip lesion, mucus membranes moist Cardiovascular: S1S2 reg, systolic murmur apprecited, positive dorsalis pedis pulse bilateral, 1+ bilateral lower extremity pitting edema Lungs: CTA bilateral, no rhonchi, no rales, no accessory muscle use, on room air Abdominal: soft, nontender to palpation, no guarding Ext: muscle strength 5 out of 5 in all 4 extremities grossly, no gross muscle atrophy, no contractures, Neuro: Moving all extremity spontaneously Psych: Alert, oriented, appropriate affec - Labs CBC & Chem 7: 05/31/24 12:51 05/31/24 05:43 Labs: Abnormal Lab Results - Last 24 Hours (Table) 01/09/1805/30/24 05/31/24 Range/Units 17:14 19:54 02:02 RBC (3.80-5.40) m/uL Hgb (11.4-16.0) gm/dL Hct (34.0-46.0) % MCHC (31.0-37.0) g/dL BUN (9.0-27.0) mg/dL Creatinine (0.6-1.5) mg/dL Est GFR (CKD-EPI) (>=60) BUN/Creatinine Ratio (12.00-20.00) Ratio Glucose (70-110) mg/dL POC Glucose (mg/dL) 143 H 120 H 202 H (70-110) mg/dL 05/31/24 05/31/24 05/31/24 Range/Units 05:43 07:36 12:27 RBC (3.80-5.40) m/uL Hgb (11.4-16.0) gm/dL Hct (34.0-46.0) % MCHC (31.0-37.0) g/dL BUN 64.1 H (9.0-27.0) mg/dL Creatinine 2.1 H (0.6-1.5) mg/dL Est GFR (CKD-EPI) 26 L (>=60) BUN/Creatinine Ratio 30.52 H (12.00-20.00) Ratio Glucose 212 H (70-110) mg/dL POC Glucose (mg/dL) 176 H 189 H (70-110) mg/dL 05/31/24 Range/Units 12:51 RBC 2.91 L (3.80-5.40) m/uL Hgb 7.6 L (11.4-16.0) gm/dL Hct 25.7 L (34.0-46.0) % MCHC 29.6 L (31.0-37.0) g/dL BUN (9.0-27.0) mg/dL Creatinine (0.6-1.5) mg/dL Est GFR (CKD-EPI) (>=60) BUN/Creatinine Ratio (12.00-20.00) Ratio Glucose (70-110) mg/dL POC Glucose (mg/dL) (70-110) mg/dL Microbiology - Last 24 Hours (Table) 05/29/24 00:10 Urine Culture - Final Urine,Voided Assessment and Plan Assessment: #) Acute heart failure with mildly reduced EF with LVEF noted to be 50% with prior echocardiogram noted to be 45 to 50%. Ideally would like to resume IV Lasix however her renal function has further declined today with a creatinine of 2.1 #) Coronary artery disease with previous stenting. Continue clopidogrel 75 mg daily continue atorvastatin 80 mg daily #) Paroxysmal atrial fibrillation on xarelto. Continue metoprolol succinate 100 mg twice daily. Continue Xarelto 50 mg daily for thromboembolic risk reduction #) COPD #) Dm2 on insulin A1c noted to be 7.1% continue Levemir 30 units daily with high intensity sliding scale insulin ACH S. Farxiga 10 mg daily added for volume control for heart failure along with type 2 diabetes management #) Primary htn. Continue losartan 50 mg daily Position: Possible discharge home tomorrow awaiting improvement of renal function
[2024-05-31 17:11] LABS: Glucose,Whole Blood 130 mg/dL (70-110)
[2024-05-31 20:05] LABS: Glucose,Whole Blood 236 mg/dL (70-110)
[2024-05-31 21:38] LABS: HCT 26.5 % (34.0-46.0); HGB 8.1 gm/dL (11.4-16.0); Hypochromasia Marked; MCHC 30.6 g/dL (31.0-37.0); MCV 88.3 fL (80.0-100.0); Mean Platelet Volume 8.9; Platelet Count 420 k/uL (150-450); RDW 15.4 % (11.5-15.5); WBC 9.1 k/uL (3.8-10.6)
[2024-06-01 01:35] LABS: Glucose,Whole Blood 89 mg/dL (70-110)
[2024-06-01 07:22] LABS: Glucose,Whole Blood 138 mg/dL (70-110)
[2024-06-01 08:44] LABS: BUN/Creat Ratio 30.83 Ratio (12.00-20.00); Blood Urea Nitrogen 55.5 mg/dL (9.0-27.0); Calcium 8.9 mg/dL (8.7-10.3); Carbon Dioxide 29.4 mmol/L (21.6-31.8); Chloride 103 mmol/L (96-109); Glucose 168 mg/dL (70-110); Potassium 5.3 mmol/L (3.5-5.5); Sodium 140 mmol/L (135-145)
[2024-06-01] MEDS: SODIUM FERRIC GLUCONAT-SUCROSE 125 MG in SODIUM CHLORIDE 0.9% 100 ML IVPB ONE (09:39)
[2024-06-01 12:07] LABS: Glucose,Whole Blood 169 mg/dL (70-110)
--- NOTE | 2024-06-01 12:45 | P.PN ---
Subjective Progress Note Date: 06/01/24 Principal diagnosis: sob 64-year-old female with past medical history of atrial fibrillation on Xarelto, heart failure with mild reduction in EF with LVEF of 4550% COPD type 2 diabetes who presented to the hospital with shortness of breath. She reported her legs being more swollen accompanied by lower leg pain. She was noted be hyperglycemic in the ER with a blood glucose of 29 and was given 10 mg of IV dexamethasone. She had worsening renal function and Lasix was held 06/01 Patient seen and examined. States she is feeling about the same. Still with legs swelling but that is better. Objective - Vital Signs Vital signs: Vital Signs Temp 97.7 F 06/01/24 12:03 Pulse 55 L 06/01/24 12:03 Resp 18 06/01/24 12:03 BP 147/76 06/01/24 12:03 Pulse Ox 98 06/01/24 12:03 FiO2 Intake & Output 05/31/24 06/01/24 06/01/24 18:59 06:59 18:59 Intake Total 540 Balance 540 Weight 73.624 kg Intake: Oral 540 Other: Voiding Method Toilet Toilet # Voids 3 - Exam General: Appears older than stated age, female, pleasant Derm: no unusual rashes/lesions, warm Head: atraumatic, normocephalic, symmetric Eyes: EOMI, no lid lag, anicteric sclera, pupils equal round reactive to light ENT: Nose and ears atraumatic Neck: No cervical lymphadenopathy, trachea midline, supple Mouth: no lip lesion, mucus membranes moist Cardiovascular: S1S2 reg, systolic murmur apprecited, positive dorsalis pedis pulse bilateral, 1+ bilateral lower extremity pitting edema Lungs: CTA bilateral, no rhonchi, no rales, no accessory muscle use, on room air Abdominal: soft, nontender to palpation, no guarding Ext: muscle strength 5 out of 5 in all 4 extremities grossly, no gross muscle atrophy, no contractures, Neuro: Moving all extremity spontaneously Psych: Alert, oriented, appropriate affec - Labs CBC & Chem 7: 05/31/24 21:17 06/01/24 05:57 Labs: Abnormal Lab Results - Last 24 Hours (Table) 05/29/24 05/31/24 05/31/24 Range/Units 04:22 12:51 17:09 RBC 2.91 L (3.80-5.40) m/uL Hgb 7.6 L (11.4-16.0) gm/dL Hct 25.7 L (34.0-46.0) % MCHC 29.6 L (31.0-37.0) g/dL BUN (9.0-27.0) mg/dL Creatinine (0.6-1.5) mg/dL Est GFR (CKD-EPI) (>=60) BUN/Creatinine Ratio (12.00-20.00) Ratio Glucose (70-110) mg/dL POC Glucose (mg/dL) 130 H (70-110) mg/dL RBC Folate 800 H (280 - 791) ng/mL 05/31/24 05/31/24 06/01/24 Range/Units 20:04 21:17 05:57 RBC 3.00 L (3.80-5.40) m/uL Hgb 8.1 L (11.4-16.0) gm/dL Hct 26.5 L (34.0-46.0) % MCHC 30.6 L (31.0-37.0) g/dL BUN 55.5 H (9.0-27.0) mg/dL Creatinine 1.8 H (0.6-1.5) mg/dL Est GFR (CKD-EPI) 31 L (>=60) BUN/Creatinine Ratio 30.83 H (12.00-20.00) Ratio Glucose 168 H (70-110) mg/dL POC Glucose (mg/dL) 236 H (70-110) mg/dL RBC Folate (280 - 791) ng/mL 06/01/24 06/01/24 Range/Units 07:20 12:06 RBC (3.80-5.40) m/uL Hgb (11.4-16.0) gm/dL Hct (34.0-46.0) % MCHC (31.0-37.0) g/dL BUN (9.0-27.0) mg/dL Creatinine (0.6-1.5) mg/dL Est GFR (CKD-EPI) (>=60) BUN/Creatinine Ratio (12.00-20.00) Ratio Glucose (70-110) mg/dL POC Glucose (mg/dL) 138 H 169 H (70-110) mg/dL RBC Folate (280 - 791) ng/mL Assessment and Plan Plan: #) Acute heart failure with mildly reduced EF with LVEF noted to be 50% with prior echocardiogram noted to be 45 to 50%. Hold losartan. CARDIO following consider resuming lasix as Cr improved today to 1.8 down from 2.1. Recheck in am #) Coronary artery disease with previous stenting. Continue clopidogrel 75 mg daily continue atorvastatin 80 mg daily #) Paroxysmal atrial fibrillation on xarelto. Continue metoprolol succinate 100 mg twice daily. Continue Xarelto 50 mg daily for thromboembolic risk reduction #) COPD #) Dm2 on insulin A1c noted to be 7.1% continue Levemir 30 units daily with high intensity sliding scale insulin ACH S. Farxiga 10 mg daily added for volume control for heart failure along with type 2 diabetes management #) Primary htn. Continue losartan 50 mg daily Position: Possible discharge home tomorrow awaiting improvement of renal function
[2024-06-01] MEDS: FERROUS SULFATE 325 MG TAB PO SCH (12:53)
--- NOTE | 2024-06-01 13:09 | P.PN ---
Subjective Progress Note Date: 06/01/24 This is a 64-year-old female with a past medical history significant for coronary artery disease, atrial fibrillation, peripheral vascular disease, hypertension, hyperlipidemia, diabetes, permanent pacemaker implantation, and valvular heart disease. Patient follows in the office with Dr. Mendez. We have magali townsend asked to see the patient in consultation for congestive heart failure. Patient examined at the bedside in the emergency room. Patient states she has been feeling short of breath for the past week. She states initially she thought it was her COPD acting up. She states that she was taking her nebulizer treatments at home and using her inhaler without much relief. She reports some heaviness in her chest as well. She states just walking to the bathroom she is winded and out of breath. She reports that she has been taking her Lasix and has been compliant with a low-sodium diet. Patient was found to be in CHF and was started on IV diuretics. Patient continues to report shortness of breath although improved. DIAGNOSTICS: - EKG reveals sinus mechanism with ST elevation in aVR and V1. Incomplete right bundle branch block. Diffuse ST segment depression. EKG abnormalities seen on previous EKGs. - Chest xray negative for acute process - Laboratory data: WBC 8.8. Hemoglobin 8.4. Platelet count 391. D-dimer 0.34. Sodium 140. Potassium 4.6. BUN 49. Creatinine 1.53. Troponin 0.022. proBNP 5560. - Current home cardiac medications include Lipitor 80 mg at night, Plavix 75 mg daily, Lasix 20 mg twice a day, metoprolol succinate 100 mg twice a day, losartan 50 mg daily, Xarelto 20 mg daily. - Most recent echocardiogram obtained in the office in November 2023 revealed ejection fraction 52%, moderate MR, mild to moderate TR, moderate , peak 43 mmHg and mean 21 mmHg - Cardiac catheterization history: February 2023 with stenting to the OM1 05/30/2024 Echocardiogram showed low normal LV systolic function with ejection fraction of 50% and a technically difficult study with moderate aortic stenosis, mean gradient 25 mmHg and severe pulmonary hypertension PA pressure 65 mmHg. She is overall feeling a bit better. Her breathing has improved somewhat but she remains short of breath. She continues on IV Lasix. Labs this morning show worsening renal function with a creatinine of 2.0. 05/31/2024 The patient was seen and examined sitting up in bed. Overall she feels her sergio athing is unchanged. She does appear somewhat more dyspneic during my examination but patient feels its because she has been up ambulating around the room. She does verbalize feeling difficulty taking a deep breath. Labs this morning are pending. Lasix remains on hold. Continues on Plavix 75 mg daily, atorvastatin 80 mg p.o. daily, Farxiga 10 mg daily, glipizide 10 mg p.o. twice daily, Levemir and NovoLog, losartan 50 mg p.o. daily, metoprolol succinate 100 mg p.o. twice daily, and Xarelto 15 mg p.o. daily. 06/01/24 Patient seen and examined. Blood pressure 147/76, heart rate 55, pulse ox 98% on 2 L nasal cannula. Hemoglobin yesterday was 8.1. Regarding anemia, patient denies any workup in the past to evaluate for GI bleed. She denies having any blood in her stools. Repeat blood work reveals BUN 55 creatinine 1.8. Patient is currently off diuretics. PHYSICAL EXAM: VITAL SIGNS: Reviewed. GENERAL: Well-developed in no acute distress. HEENT: Head is normocephalic. Pupils are equal, round. Sclerae anicteric. Mucous membranes of the mouth are moist. Neck supple. No JVD or thyromegaly LUNGS: Respirations even and unlabored. Lungs diminished with bibasilar crackles. HEART: Regular rate and rhythm. S1 and S2 heard. Systolic murmur noted. ABDOMEN: Soft. Nondistended. Nontender. EXTREMITIES: Normal range of motion. No clubbing or cyanosis. Peripheral pulses intact. 1+ pitting bilateral lower extremity edema NEUROLOGIC: Awake and alert. Oriented x 3. ASSESSMENT: Shortness of breath Acute on chronic heart failure with preserved EF, 50% Acute kidney injury, worsening Moderate Coronary artery disease with previous stenting, most recently to OM1 in 02/2023 Paroxysmal atrial fibrillation, maintaining sinus mechanism Peripheral vascular disease Hypertension Hyperlipidemia Diabetes with labile blood sugars ranging from 29-501 COPD Anemia PLAN: Ferrlecit 125 mg IV piggyback x 1 ordered Continue patient on iron 325 mg daily Anemia workup to be addressed by attending or plan for outpatient workup We will continue to follow the patient and provide further recommendations accordingly. [employer] note has been reviewed, I agree with a documented findings and plan of care. Patient was seen and examined. Objective - Vital Signs Vital signs: Vital Signs Temp 98 F 06/01/24 07:17 Pulse 59 L 06/01/24 07:17 Resp 16 06/01/24 07:17 BP 162/78 06/01/24 07:17 Pulse Ox 96 06/01/24 07:17 FiO2 Intake & Output 05/31/24 06/01/24 06/01/24 18:59 06:59 18:59 Intake Total 540 Balance 540 Weight 73.624 kg Intake: Oral 540 Other: Voiding Method Toilet Toilet # Voids 3 - Labs CBC & Chem 7: 05/31/24 21:17 06/01/24 05:57 Labs: Abnormal Lab Results - Last 24 Hours (Table) 05/31/24 05/31/24 05/31/24 Range/Units 05:43 12:27 12:51 RBC 2.91 L (3.80-5.40) m/uL Hgb 7.6 L (11.4-16.0) gm/dL Hct 25.7 L (34.0-46.0) % MCHC 29.6 L (31.0-37.0) g/dL BUN 64.1 H (9.0-27.0) mg/dL Creatinine 2.1 H (0.6-1.5) mg/dL Est GFR (CKD-EPI) 26 L (>=60) BUN/Creatinine Ratio 30.52 H (12.00-20.00) Ratio Glucose 212 H (70-110) mg/dL POC Glucose (mg/dL) 189 H (70-110) mg/dL 05/31/24 05/31/24 05/31/24 Range/Units 17:09 20:04 21:17 RBC 3.00 L (3.80-5.40) m/uL Hgb 8.1 L (11.4-16.0) gm/dL Hct 26.5 L (34.0-46.0) % MCHC 30.6 L (31.0-37.0) g/dL BUN (9.0-27.0) mg/dL Creatinine (0.6-1.5) mg/dL Est GFR (CKD-EPI) (>=60) BUN/Creatinine Ratio (12.00-20.00) Ratio Glucose (70-110) mg/dL POC Glucose (mg/dL) 130 H 236 H (70-110) mg/dL 06/01/24 06/01/24 Range/Units 05:57 07:20 RBC (3.80-5.40) m/uL Hgb (11.4-16.0) gm/dL Hct (34.0-46.0) % MCHC (31.0-37.0) g/dL BUN 55.5 H (9.0-27.0) mg/dL Creatinine 1.8 H (0.6-1.5) mg/dL Est GFR (CKD-EPI) 31 L (>=60) BUN/Creatinine Ratio 30.83 H (12.00-20.00) Ratio Glucose 168 H (70-110) mg/dL POC Glucose (mg/dL) 138 H (70-110) mg/dL
[2024-06-01 17:04] LABS: Glucose,Whole Blood 181 mg/dL (70-110)
[2024-06-01 20:02] VITALS: RESP 16
[2024-06-01 20:23] LABS: Glucose,Whole Blood 197 mg/dL (70-110)
[2024-06-01] MEDS: INSULIN DETEMIR (LEVEMIR) 100 UNIT/ML SYR SQ SCH (21:36)
[2024-06-02 01:23] LABS: Glucose,Whole Blood 218 mg/dL (70-110)
[2024-06-02 07:16] LABS: Glucose,Whole Blood 204 mg/dL (70-110)
[2024-06-02 09:21] LABS: Basophils % (A) 0 %; Eosinophils # (A) 0.6 k/uL (0-0.7); Eosinophils % (A) 7 %; HCT 30.1 % (34.0-46.0); HGB 8.9 gm/dL (11.4-16.0); Hypochromasia Marked; Lymphocytes # (A) 1.7 k/uL (1.0-4.8); Lymphocytes % (A) 19 %; MCH 26.4 pg (25.0-35.0); MCHC 29.7 g/dL (31.0-37.0); MCV 88.9 fL (80.0-100.0); Mean Platelet Volume 8.5; Monocytes # (A) 0.6 k/uL (0-1.0); Monocytes % (A) 7 %; Neutrophils # (A) 5.8 k/uL (1.3-7.7); Neutrophils % (A) 65 %; Platelet Count 442 k/uL (150-450); RBC 3.38 m/uL (3.80-5.40); RDW 15.2 % (11.5-15.5); WBC 8.9 k/uL (3.8-10.6)
[2024-06-02] MEDS: METOPROLOL SUCCINATE (ER) 50 MG TAB.ER.24H PO SCH (09:54)
[2024-06-02] MEDS: amLODIPine 5 MG TAB PO SCH (09:54)
[2024-06-02 10:56] LABS: BUN/Creat Ratio 30.53 Ratio (12.00-20.00); Blood Urea Nitrogen 51.9 mg/dL (9.0-27.0); Calcium 8.8 mg/dL (8.7-10.3); Carbon Dioxide 27.5 mmol/L (21.6-31.8); Chloride 106 mmol/L (96-109); Glucose 214 mg/dL (70-110); Potassium 5.2 mmol/L (3.5-5.5); Sodium 142 mmol/L (135-145)
--- NOTE | 2024-06-02 11:14 | P.PN ---
Subjective Progress Note Date: 06/02/24 This is a 64-year-old female with a past medical history significant for coronary artery disease, atrial fibrillation, peripheral vascular disease, hypertension, hyperlipidemia, diabetes, permanent pacemaker implantation, and valvular heart disease. Patient follows in the office with Dr. Mendez. We have magali townsend asked to see the patient in consultation for congestive heart failure. Patient examined at the bedside in the emergency room. Patient states she has been feeling short of breath for the past week. She states initially she thought it was her COPD acting up. She states that she was taking her nebulizer treatments at home and using her inhaler without much relief. She reports some heaviness in her chest as well. She states just walking to the bathroom she is winded and out of breath. She reports that she has been taking her Lasix and has been compliant with a low-sodium diet. Patient was found to be in CHF and was started on IV diuretics. Patient continues to report shortness of breath although improved. DIAGNOSTICS: - EKG reveals sinus mechanism with ST elevation in aVR and V1. Incomplete right bundle branch block. Diffuse ST segment depression. EKG abnormalities seen on previous EKGs. - Chest xray negative for acute process - Laboratory data: WBC 8.8. Hemoglobin 8.4. Platelet count 391. D-dimer 0.34. Sodium 140. Potassium 4.6. BUN 49. Creatinine 1.53. Troponin 0.022. proBNP 5560. - Current home cardiac medications include Lipitor 80 mg at night, Plavix 75 mg daily, Lasix 20 mg twice a day, metoprolol succinate 100 mg twice a day, losartan 50 mg daily, Xarelto 20 mg daily. - Most recent echocardiogram obtained in the office in November 2023 revealed ejection fraction 52%, moderate MR, mild to moderate TR, moderate , peak 43 mmHg and mean 21 mmHg - Cardiac catheterization history: February 2023 with stenting to the OM1 05/30/2024 Echocardiogram showed low normal LV systolic function with ejection fraction of 50% and a technically difficult study with moderate aortic stenosis, mean gradient 25 mmHg and severe pulmonary hypertension PA pressure 65 mmHg. She is overall feeling a bit better. Her breathing has improved somewhat but she remains short of breath. She continues on IV Lasix. Labs this morning show worsening renal function with a creatinine of 2.0. 05/31/2024 The patient was seen and examined sitting up in bed. Overall she feels her sergio athing is unchanged. She does appear somewhat more dyspneic during my examination but patient feels its because she has been up ambulating around the room. She does verbalize feeling difficulty taking a deep breath. Labs this morning are pending. Lasix remains on hold. Continues on Plavix 75 mg daily, atorvastatin 80 mg p.o. daily, Farxiga 10 mg daily, glipizide 10 mg p.o. twice daily, Levemir and NovoLog, losartan 50 mg p.o. daily, metoprolol succinate 100 mg p.o. twice daily, and Xarelto 15 mg p.o. daily. 06/01/24 Patient seen and examined. Blood pressure 147/76, heart rate 55, pulse ox 98% on 2 L nasal cannula. Hemoglobin yesterday was 8.1. Regarding anemia, patient denies any workup in the past to evaluate for GI bleed. She denies having any blood in her stools. Repeat blood work reveals BUN 55 creatinine 1.8. Patient is currently off diuretics. 06/02/2024 Patient seen and examined. Heart rate is controlled in the 50s, blood pressure noted to have some high readings 163/69, pulse ox 98% on 2 L nasal cannula. Repeat blood work reveals hemoglobin 8.9, BUN 51 creatinine 1.7. Yesterday, we ordered 1 dose of Ferrlecit IV piggyback followed by oral iron daily. Patient states that her breathing is now much better since she came in. She denies having any chest pain. PHYSICAL EXAM: VITAL SIGNS: Reviewed. GENERAL: Well-developed in no acute distress. HEENT: Head is normocephalic. Pupils are equal, round. Sclerae anicteric. Mucous membranes of the mouth are moist. Neck supple. No JVD or thyromegaly LUNGS: Respirations even and unlabored. Lungs diminished with bibasilar crackles. HEART: Regular rate and rhythm. S1 and S2 heard. Systolic murmur noted. ABDOMEN: Soft. Nondistended. Nontender. EXTREMITIES: Normal range of motion. No clubbing or cyanosis. Peripheral pulses intact. 1+ pitting bilateral lower extremity edema NEUROLOGIC: Awake and alert. Oriented x 3. ASSESSMENT: Shortness of breath Acute on chronic heart failure with preserved EF, 50% Acute kidney injury, worsening Moderate Coronary artery disease with previous stenting, most recently to OM1 in 02/2023 Paroxysmal atrial fibrillation, maintaining sinus mechanism Peripheral vascular disease Hypertension Hyperlipidemia Diabetes with labile blood sugars ranging from 29-501 COPD Anemia PLAN: Add amlodipine 5 mg daily Decrease Toprol-XL to 50 mg twice daily Continue patient on Farxiga 10 mg daily, Plavix 75 mg daily, atorvastatin, Xarelto Continue patient on iron 325 mg daily Anemia workup to be addressed by attending or plan for outpatient workup Cardiology will sign off this case and follow on an as-needed basis. Please reconsult for any new concerns. Patient may follow-up in the office in one to [address] Mendez. [employer] note has been reviewed, I agree with a documented findings and plan of care. Patient was seen and examined. Objective - Vital Signs Vital signs: Vital Signs Temp 98.0 F 06/02/24 07:12 Pulse 54 L 06/02/24 07:12 Resp 16 06/02/24 07:12 BP 163/69 06/02/24 07:12 Pulse Ox 98 06/02/24 07:12 FiO2 Intake & Output 06/01/24 06/02/24 06/02/24 18:59 06:59 18:59 Weight 72.6 kg Other: Voiding Method Toilet Toilet - Labs CBC & Chem 7: 06/02/24 09:06 06/02/24 06:36 Labs: Abnormal Lab Results - Last 24 Hours (Table) 05/29/24 06/01/24 06/01/24 Range/Units 04:22 12:06 17:03 POC Glucose (mg/dL) 169 H 181 H (70-110) mg/dL RBC Folate 800 H (280 - 791) ng/mL 06/01/24 06/02/24 06/02/24 Range/Units 20:21 01:22 07:15 POC Glucose (mg/dL) 197 H 218 H 204 H (70-110) mg/dL RBC Folate (280 - 791) ng/mL
[2024-06-02 12:13] LABS: Glucose,Whole Blood 178 mg/dL (70-110)
[2024-06-02 12:47] VITALS: BP 158/67; PULSE 81; TEMP 97.6
--- NOTE | 2024-06-02 15:08 | P.DS ---
Providers Date of admission: 05/28/24 22:35 Attending physician: Fransisco Fernandez MD Consults: 05/28/24 22:35 Consult Physician Routine Consulting Provider: Anibal Gruber Consult Reason/Comments: chf Do you want consulting provider notified?: Yes Primary care physician: Lilli Martinez Keron Hospital Course: Discharge Diagnosis: Shortness of breath Acute on chronic heart failure with preserved EF, 50% Acute kidney injury, worsening Moderate Coronary artery disease with previous stenting, most recently to OM1 in 02/2023 Paroxysmal atrial fibrillation, maintaining sinus mechanism Peripheral vascular disease Hypertension Hyperlipidemia Diabetes with labile blood sugars ranging from 29-501 COPD Anemia Hospital Course: A 64-year-old female with medical history of A-fib on Xarelto, heart failure with mildly reduced ejection fraction LVEF 45 to 50%, CAD with prior history of stents, COPD not on home oxygen, type II DM, who presented to the ED with SOB, bilateral lower extremity edema, was admitted for management of acute heart failure exacerbation. Patient was started on IV Lasix after which her creatinine was noted to be uptrending, diuretics stopped, her kidney function improved, She received 1 dose of IV iron as her hemoglobin was down from 8.4-7.6 on 05/31, hemoglobin improved to 8.9 at the time of discharge, patient to follow-up with PCP for further anemia workup, continued on oral iron at discharge. Add amlodipine 5 mg daily, decrease Toprol-XL to 50 mg twice monika, continue patient on Farxiga 10 mg daily, Plavix 75 mg daily, atorvastatin, Xarelto Continue patient on iron 325 mg daily Anemia workup to be addressed by PCP, follow-up with cardiology Patient seen and examined at bedside Vital signs reviewed and stable. General: [nontoxic], [no distress], [appears at stated age] Derm: [warm], [dry] Head: [atraumatic], [normocephalic], [symmetric] Eyes: [EOMI], [no lid lag], [anicteric sclera] Mouth: [no lip lesion], [mucus membranes moist] Cardiovascular: [S1S2 reg], [no murmur] Lungs: [CTA bilateral], [no rhonchi, no rales] , [no accessory muscle use] Abdominal: [soft], [ nontender to palpation], [no guarding], [no appreciable org anomegaly] Ext: [no gross muscle atrophy], 1+ pitting edema, improved], [no contractures] Neuro: [ CN II-XI grossly intact], [no focal neuro deficits] Psych: [Alert], [oriented], [appropriate affect] A total of 40 minutes of time were spent preparing this complex discharge summary. Patient was discharged on 06/02/2024. Patient Condition at Discharge: Fair Plan - Discharge Summary Discharge Rx Participant: No New Discharge Prescriptions: New Dapagliflozin Propanediol [Farxiga] 10 mg PO DAILY #90 tab Ferrous Sulfate [Iron (65 MG Elemental)] 325 mg PO W/LUNCH #90 tab amLODIPine [Norvasc] 5 mg PO DAILY #90 tab Continue glipiZIDE [Glucotrol] 10 mg PO BID traMADol HCL [Ultram] 50 mg PO Q6H PRN PRN Reason: Pain Pantoprazole Sodium 40 mg PO DAILY Potassium Chloride [Klor-Con 20] 20 meq PO DIRECTED Insulin Aspart [NovoLOG Flexpen] See Protocol SQ ACHS Levothyroxine Sodium [Synthroid] 137 mcg PO DAILY Albuterol Sulfate [Albuterol Sulfate Hfa] 2 puff PO RT-QID PRN PRN Reason: Shortness Of Breath Furosemide [Lasix] 20 mg PO BID HYDROcodone/APAP 7.5-325MG [Allons 7.5-325] 1 tab PO Q6HR PRN PRN Reason: Pain Losartan [Cozaar] 50 mg PO DAILY Rivaroxaban [Xarelto] 20 mg PO DAILY metFORMIN HCL 1,000 mg PO BID Atorvastatin [Lipitor] 80 mg PO DAILY #30 tab Nitroglycerin Sl Tabs [Nitrostat] 0.4 mg SUBLINGUAL Q5M PRN #20 tab PRN Reason: Chest Pain Clopidogrel [Plavix] 75 mg PO DAILY #30 tab Insulin Glargine,Hum.rec.anlog [Lantus Solostar Pen] 30 units SQ HS Changed Metoprolol Succinate (ER) [Toprol XL] 50 mg PO BID #90 tab Discharge Medication List glipiZIDE [Glucotrol] 10 mg PO BID 08/26/15 [History] traMADol HCL [Ultram] 50 mg PO Q6H PRN 09/23/17 [History] Pantoprazole Sodium 40 mg PO DAILY 03/04/21 [History] Potassium Chloride [Klor-Con 20] 20 meq PO DIRECTED 07/28/20 [History] metFORMIN HCL 1,000 mg PO BID 01/18/22 [History] Insulin Aspart [NovoLOG Flexpen] See Protocol SQ ACHS 02/23/23 [History] Levothyroxine Sodium [Synthroid] 137 mcg PO DAILY 02/23/23 [History] Atorvastatin [Lipitor] 80 mg PO DAILY #30 tab 02/26/23 [Rx] Clopidogrel [Plavix] 75 mg PO DAILY #30 tab 02/26/23 [Rx] Nitroglycerin Sl Tabs [Nitrostat] 0.4 mg SUBLINGUAL Q5M PRN #20 tab 02/26/23 [Rx] Albuterol Sulfate [Albuterol Sulfate Hfa] 2 puff PO RT-QID PRN 05/29/24 [History] Furosemide [Lasix] 20 mg PO BID 05/29/24 [History] HYDROcodone/APAP 7.5-325MG [Allons 7.5-325] 1 tab PO Q6HR PRN 05/29/24 [History] Insulin Glargine,Hum.rec.anlog [Lantus Solostar Pen] 30 units SQ HS 05/29/24 [History] Losartan [Cozaar] 50 mg PO DAILY 05/29/24 [History] Rivaroxaban [Xarelto] 20 mg PO DAILY 05/29/24 [History] Dapagliflozin Propanediol [Farxiga] 10 mg PO DAILY #90 tab 06/02/24 [Rx] Ferrous Sulfate [Iron (65 MG Elemental)] 325 mg PO W/LUNCH #90 tab 06/02/24 [Rx] Metoprolol Succinate (ER) [Toprol XL] 50 mg PO BID #90 tab 06/02/24 [Rx] amLODIPine [Norvasc] 5 mg PO DAILY #90 tab 06/02/24 [Rx] Follow up Appointment(s)/Referral(s): Annabel Mendez MD [STAFF PHYSICIAN] - 1 Week Lilli Cabrales MD [Primary Care Provider] - 1-2 days Activity/Diet/Wound Care/Special Instructions: Please, follow up with your PCP. Request referral to see a stomach doctor and continue anemia work up. Discharge Disposition: HOME SELF-CARE
== END 2024-06-02 16:18 | disposition home or self-care (01) | DRG 291 ==
LOC: EC 17:58 → 5NMEDONC 22:35
PROVIDERS: ADMIT Internal Medicine; ATTEND Internal Medicine
DX: I13.0 Hypertensive heart and chronic kidney disease with heart failure and stage 1 through stage 4 chronic kidney disease, or unspecified chronic kidney disease (principal); I50.43 Acute on chronic combined systolic (congestive) and diastolic (congestive) heart failure; N17.9 Acute kidney failure, unspecified; I48.0 Paroxysmal atrial fibrillation; I25.10 Atherosclerotic heart disease of native coronary artery without angina pectoris; E78.5 Hyperlipidemia, unspecified; J44.89 Other specified chronic obstructive pulmonary disease; D63.1 Anemia in chronic kidney disease; E11.649 Type 2 diabetes mellitus with hypoglycemia without coma; N18.9 Chronic kidney disease, unspecified; E11.22 Type 2 diabetes mellitus with diabetic chronic kidney disease; I45.10 Unspecified right bundle-branch block; I35.0 Nonrheumatic aortic (valve) stenosis; I27.20 Pulmonary hypertension, unspecified; E07.9 Disorder of thyroid, unspecified; E11.51 Type 2 diabetes mellitus with diabetic peripheral angiopathy without gangrene; E11.65 Type 2 diabetes mellitus with hyperglycemia; M79.7 Fibromyalgia; G25.81 Restless legs syndrome; Z95.5 Presence of coronary angioplasty implant and graft; Z87.891 Personal history of nicotine dependence; Z79.4 Long term (current) use of insulin; Z79.890 Hormone replacement therapy; Z79.82 Long term (current) use of aspirin; Z79.84 Long term (current) use of oral hypoglycemic drugs; Z91.040 Latex allergy status; Z79.01 Long term (current) use of anticoagulants; Z79.02 Long term (current) use of antithrombotics/antiplatelets; Z95.0 Presence of cardiac pacemaker; Z79.899 Other long term (current) drug therapy
CPT/HCPCS: 36415; 71046; 80048; 80053; 81001; 82607; 82728; 82747; 83036; 83540; 83550; 83605; 83735; 83880; 84484; 85025; 85027; 85045; 85379; 85610; 85730; 87086; 87636; 93005; 93306; 94640; 96374; 96375; 96376; 99291

== ENCOUNTER 2024-09-18 16:03 | Emergency (ER) | payer MEDICARE, OTHER ==
[2024-09-18 16:12] VITALS: TEMP 98
[2024-09-18 16:53] LABS: Basophils # (A) 0.04 10*3/uL (0.00-0.10); Basophils % (A) 0.3 %; Eosinophils # (A) 0.07 10*3/uL (0.04-0.35); Eosinophils % (A) 0.6 %; HCT 39.5 % (37.2-46.3); HGB 12.5 g/dL (12.0-15.0); Lymphocytes # (A) 1.35 10*3/uL (0.90-5.00); Lymphocytes % (A) 10.9 %; MCH 27.3 pg (27.0-32.0); MCHC 31.6 g/dL (32.0-37.0); MCV 86.2 fL (80.0-97.0); Mean Platelet Volume 10.8 fL (9.5-12.2); Monocytes # (A) 0.58 10*3/uL (0.20-1.00); Monocytes % (A) 4.7 %; Neutrophils # (A) 10.24 10*3/uL (1.80-7.70); Neutrophils % (A) 82.9 %; Platelet Count 356 10*3/uL (140-440); RBC 4.58 10*6/uL (4.10-5.20); RDW 13.5 % (11.5-14.5); WBC 12.36 10*3/uL (4.50-10.00)
--- NOTE | 2024-09-18 16:56 | ED ---
General Adult HPI - General Chief complaint: Recheck/Abnormal Lab/Rx Stated complaint: adverse reaction to shot Time Seen by Provider: 09/18/24 16:30 Source: patient Mode of arrival: ambulatory Limitations: no limitations - History of Present Illness Initial comments: Dictation was produced using [employer] dictation software. please excuse any grammatical, word or spelling errors. Chief Complaint: 64-year-old female presents to the emergency department for right abdominal bruising History of Present Illness: Patient 64-year-old female presents with right abdominal bruising. Patient states she gives herself subcu insulin injections for management of her diabetes mellitus. Denies any pain. She does take anticoagulation medications. Denies any back pain or abdominal pain. Patient has history of chronic anemia The ROS documented in this emergency department record has been reviewed and confirmed by me. Those systems with pertinent positive or negative responses have been documented in the HPI. All other systems are other negative and/or noncontributory. - Related Data Home Medications Medication Instructions Recorded Confirmed glipiZIDE [Glucotrol] 10 mg PO BID 08/26/15 07/01/24 traMADol HCL [Ultram] 50 mg PO Q6H PRN 09/23/17 07/01/24 Pantoprazole Sodium 40 mg PO DAILY 07/28/20 07/01/24 Potassium Chloride [Klor-Con 20] 20 meq PO DAILY 07/28/20 07/01/24 Insulin Aspart [NovoLOG Flexpen] See Protocol SQ ACHS 02/23/23 07/01/24 Levothyroxine Sodium [Synthroid] 137 mcg PO DAILY 02/23/23 07/01/24 Albuterol Sulfate [Albuterol 2 puff PO RT-QID PRN 05/29/24 07/01/24 Sulfate Hfa] Furosemide [Lasix] 20 mg PO BID 05/29/24 07/01/24 HYDROcodone/APAP 7.5-325MG [Channing 1 tab PO Q6HR PRN 05/29/24 07/01/24 7.5-325] Insulin Glargine,Hum.rec.anlog 30 units SQ HS 05/29/24 07/01/24 [Lantus Solostar Pen] Losartan [Cozaar] 50 mg PO DAILY 05/29/24 07/01/24 Rivaroxaban [Xarelto] 20 mg PO DAILY 05/29/24 07/01/24 Aspirin 81 mg PO DAILY 06/30/24 07/01/24 Metoprolol Succinate (ER) [Toprol 100 mg PO BID 06/30/24 07/01/24 XL] Previous Rx's Medication Instructions Recorded Atorvastatin [Lipitor] 80 mg PO DAILY #30 tab 02/26/23 Clopidogrel [Plavix] 75 mg PO DAILY #30 tab 02/26/23 Nitroglycerin Sl Tabs [Nitrostat] 0.4 mg SUBLINGUAL Q5M PRN #20 tab 02/26/23 Allergies Allergy/AdvReac Type Severity Reaction Status Date / Time latex Allergy Rash/Hives Verified 09/18/24 16:12 Review of Systems ROS Statement: Those systems with pertinent positive or pertinent negative responses have been documented in the HPI. ROS Other: All systems not noted in ROS Statement are negative. Past Medical History Past Medical History: Atrial Fibrillation, Asthma, COPD, Diabetes Mellitus, Fibromyalgia, GERD/Reflux, Hyperlipidemia, Hypertension, Myocardial Infarction (MT), Renal Disease, Thyroid Disorder, Vascular Disorder Additional Past Medical History / Comment(s): Restless leg syndrom. COVID 02/03/22 , pacemaker.. kidney disease stage 4 Last Myocardial Infarction Date:: 2020 History of Any Multi-Drug Resistant Organisms: None Reported Past Surgical History: Heart Catheterization With Stent, Pacemaker, Tubal Ligation Additional Past Surgical History / Comment(s): BI VENTRICULAR PACER. THYROIDECTOMY, CTR-RT WRIST, Cataract surgery R/L eye., two cardiac stent, Past Anesthesia/Blood Transfusion Reactions: Postoperative Nausea & Vomiting (PONV) Additional Past Anesthesia/Blood Transfusion Reaction / Comment(s): no blood transfusion reaction Date of Last Stent Placement:: unknown Type of Cardiac Device: Biventricular Pacemaker Device Placement Date:: 07/29/2020 Past Psychological History: No Psychological Hx Reported Smoking Status: Former smoker Past Alcohol Use History: None Reported Past Drug Use History: None Reported - Past Family History Son(s) Additional Family Medical History / Comment(s): BLINDNESS FROM DIABETES. Father Family Medical History: Cancer Additional Family Medical History / Comment(s): prostte General Exam - General Exam Comments Initial Comments: PHYSICAL EXAM: General Impression: Alert and oriented x3, not in acute distress HEENT: Normocephalic atraumatic, extra-ocular movements intact, pupils equal and reactive to light bilaterally, mucous membranes moist. Cardiovascular: Heart regular rate and rhythm Chest: Able to complete full sentences, no retractions, no tachypnea Abdomen: abdomen soft, non-tender, non-distended, no organomegaly Musculoskeletal: Pulses present and equal in all extremities, no peripheral edema Motor: no focal deficits noted Neurological: CN II-XII grossly intact, no focal motor or sensory deficits noted Skin: Some ecchymoses to the right lower abdomen that spreads to the right upper abdomen Psych: Normal affect and mood Limitations: no limitations Course Vital Signs 09/18/24 16:09 Temperature 98 F Pulse Rate 82 Respiratory 18 Rate Blood Pressure 128/76 O2 Sat by Pulse 92 L Oximetry Medical Decision Making - Medical Decision Making Was pt. sent in by a medical professional or institution (, PA, ENERGY CONSERVATION ENGINEER, urgent care, hospital, or [facility]...) When possible be specific @ -No Did you speak to anyone other than the patient for history (EMS, parent, family, police, friend...)? What history was obtained from this source @ -No Did you review nursing and triage notes (agree or disagree)? Why? @ -I reviewed and agree with nursing and triage notes Were old charts reviewed (outside hosp., previous admission, EMS record, old EKG, old radiological studies, urgent care reports/EKG's, [facility] records)? Report findings @ -No old charts were reviewed Differential Diagnosis (chest pain, altered mental status, abdominal pain women, abdominal pain men, vaginal bleeding, musculoskeletal, weakness, fever, dyspnea, syncope, headache, dizziness, GI bleed, back pain, seizure, CVA, palpatations, mental health)? @ -Ruptured hollow viscus, abdominal contusion, ecchymoses EKG interpreted by me (3pts min.). @ -None done X-rays interpreted by me (1pt min.). @ -None done CT interpreted by me (1pt min.). @ -None done U/S interpreted by me (1pt. min.). @ -None done What testing was considered but not performed or refused? (CT, X-rays, U/S, labs)? Why? @ -None What meds were considered but not given or refused? Why? @ -None Was smoking cessation discussed for >3mins.? @ -No Were there social determinants of health that impacted care today? How? (Homelessness, low income, unemployed, alcoholism, drug addiction, transportation, low edu. Level, literacy, decrease access to med. care, half-way, rehab)? @ -No Was there de-escalation of care discussed even if they declined (Discuss DNR or withdrawal of care, Hospice)? DNR status @ -No What co-morbidities impacted this encounter? (DM, HTN, Smoking, COPD, CAD, Cancer, CVA, ARF, Chemo, Hep., AIDS, mental health diagnosis, sleep apnea, morbid obesity)? @ -None Was patient admitted / discharged? Hospital course, mention meds given and route, prescriptions, significant lab abnormalities, going to OR and other pertinent info. @ -64-year-old female presents to the emergency department with ecchymoses on her abdomen. Patient well-appearing has a history of anemia. Family concerned. She has some ecchymoses with none induration. She is well-appearing with no abdominal symptoms. Vital signs are stable. Labs are unremarkable. Patient discharged. Did you discuss the management of the patient with other professionals (professionals i.e. , PA, ENERGY CONSERVATION ENGINEER, lab, RT, psych nurse, social sciences research scientist, machine or machinery mechanic, teacher, combatant diver officer, immigration case manager)? Give summary @ -No Was critical care preformed (if so, how long)? @ -No Undiagnosed new problem with uncertain prognosis? @ -No Drug Therapy requiring intensive monitoring for toxicity (Heparin, Nitro, Insulin, Cardizem)? @ -No Were any procedures done? @ -No Diagnosis/symptom? Acute, or Chronic, or Acute on Chronic? Uncomplicated (without systemic symptoms) or Complicated (systemic symptoms)? @ -Ecchymoses Side effects of treatment? @ -No Exacerbation, Progression, or Severe Exacerbation? @ -No Poses a threat to life or bodily function? How? (Chest pain, [place], MT, pneumonia, PE, COPD, DKA, ARF, appy, cholecystitis, CVA, Diverticulitis, Homicidal, Suicidal, threat to staff... and all critical care pts) @ -No - Lab Data Result diagrams: 09/18/24 16:43 09/18/24 16:43 Lab Results 09/18/24 09/18/24 09/18/24 Range/Units 16:43 16:43 16:43 WBC 12.36 H (4.50-10.00) 10*3/uL RBC 4.58 (4.10-5.20) 10*6/uL Hgb 12.5 (12.0-15.0) g/dL Hct 39.5 (37.2-46.3) % MCV 86.2 (80.0-97.0) fL MCH 27.3 (27.0-32.0) pg MCHC 31.6 L (32.0-37.0) g/dL Plt Count 356 (140-440) 10*3/uL MPV 10.8 (9.5-12.2) fL Immature Gran % (Auto) 0.6 % Neutrophils % 82.9 % Lymphocytes % 10.9 % Monocytes % 4.7 % Eosinophils % 0.6 % Basophils % 0.3 % Immature Gran # 0.08 H (0.00-0.04) 10*3/uL Neutrophils # 10.24 H (1.80-7.70) 10*3/uL Lymphocytes # 1.35 (0.90-5.00) 10*3/uL Monocytes # 0.58 (0.20-1.00) 10*3/uL Eosinophils # 0.07 (0.04-0.35) 10*3/uL Basophils # 0.04 (0.00-0.10) 10*3/uL PT 13.8 H (10.0-12.5) sec INR 1.3 H (<1.2) APTT 32.8 H (22.0-30.0) sec Sodium 134 L (137-145) mmol/L Potassium 5.0 (3.5-5.1) mmol/L Chloride 95 L (98-107) mmol/L Carbon Dioxide 28 (22-30) mmol/L Anion Gap 11 mmol/L BUN 53 H (7-17) mg/dL Creatinine 1.52 H (0.52-1.04) mg/dL Est GFR (CKD-EPI)AfAm 42 (>60 ml/min/1.73 sqM) Est GFR (CKD-EPI)NonAf 36 (>60 ml/min/1.73 sqM) Glucose 353 H (74-99) mg/dL Calcium 8.9 (8.4-10.2) mg/dL Disposition Clinical Impression: Abnormal bruising Disposition: HOME SELF-CARE Condition: Good Instructions (If sedation given, give patient instructions): Ecchymosis (ED) Is patient prescribed a controlled substance at d/c from ED?: No Referrals: Lilli Cabrales MD [Primary Care Provider] - 1-2 days Time of Disposition: 18:14
[2024-09-18 17:03] LABS: African American GFR (CKD) 42 (>60 ml/min/1.73 sqM); Anion Gap 11 mmol/L; Blood Urea Nitrogen 53 mg/dL (7-17); Calcium 8.9 mg/dL (8.4-10.2); Carbon Dioxide 28 mmol/L (22-30); Chloride 95 mmol/L (98-107); Glucose 353 mg/dL (74-99); Non-African American GFR(CKD) 36 (>60 ml/min/1.73 sqM); Sodium 134 mmol/L (137-145)
[2024-09-18 17:04] LABS: INR 1.3 (<1.2); Partial Thromboplastin Time 32.8 sec (22.0-30.0); Prothrombin Time 13.8 sec (10.0-12.5)
[2024-09-18 18:23] VITALS: BP 124/82; PULSE 80; RESP 16
== END 2024-09-18 19:27 | disposition home or self-care (01) ==
LOC: EC 16:03
DX: S30.1XXA Contusion of abdominal wall, initial encounter (principal); Z91.040 Latex allergy status; Z87.891 Personal history of nicotine dependence; X58.XXXA Exposure to other specified factors, initial encounter
CPT/HCPCS: 36415; 80048; 85025; 85610; 85730; 99283